=== PATIENT | male | born 1965 ===

== ENCOUNTER 2017-02-22 03:14 | Inpatient (IN) | payer MEDICAID ==
[2017-02-22] MEDS ORDERED: Promethazine/Cod 6.25mg-10mg/5ml Syr UD PO STA (03:39)
[2017-02-22] MEDS ORDERED: Magnesium Sulfate 2 gm/50 ml 2 GM/50 ML BAG IV STA (03:39)
[2017-02-22] MEDS ORDERED: Albuterol-Ipratrop 3 mg / 0.5 (3 ml) UD INH STA ×2 (03:39)
[2017-02-22] MEDS ORDERED: Magnesium Sulfate 2 gm/50 ml 2 GM/50 ML BAG ONE (03:48)
[2017-02-22] MEDS ORDERED: Albuterol-Ipratrop 3 mg / 0.5 (3 ml) UD ONE (03:48)
[2017-02-22] MEDS ORDERED: Promethazine/Cod 6.25mg-10mg/5ml Syr UD ONE (03:50)
--- NOTE | 2017-02-22 03:50 | ED PDOC ---
HPI: Chest Pain Time Seen by Provider: 02/22/17 03:28 Chief Complaint (Nursing): Chest Pain Chief Complaint (Provider): Cough/SOB/Chest Tightness History Per: Patient History/Exam Limitations: no limitations Onset/Duration Of Symptoms: Days (2 days ago) Current Symptoms Are (Timing): Still Present Additional Complaint(s): 51 y/o male with a past medical history of COPD, Hypertension, Hepatitis C, and chronic back pain, presents to the ED complaining chest tightness, onset of 2 days ago. Patient also states that his chest tightness worsens with associated symptoms of cough and shortness of breath. He informs the staff of using his at home nebulizer, but experienced no relief. Patient reports also experiencing fever, wheezing and headache, but denies any vomiting or diarrhea. Of note, patient is a former smoker and drinks on occasion. PMD: Dr. Gurwinder Mtz Past Medical History Reviewed: Historical Data, Nursing Documentation, Vital Signs Vital Signs: Last Vital Signs Temp 98.7 F 02/22/17 03:26 Pulse 94 H 02/22/17 03:26 Resp 18 02/22/17 03:26 BP 120/69 02/22/17 03:26 Pulse Ox 98 02/22/17 04:03 - Medical History PMH: Arthritis (KNEES), Asthma, Benign Prostatic Hyperplasia, Bronchitis, COPD, Gastritis, Hepatitis (C), HTN, Hypercholesterolemia, Chronic Pain (back pain) - Surgical History Surgical History: No Surg Hx - Family History Family History: States: Unknown Family Hx - Social History Ex-Smoker (has not smoked in the last 12 months): Yes Alcohol: Occasional Drugs: Denies - Immunization History Hx Tetanus Toxoid Vaccination: No Hx Influenza Vaccination: No Hx Pneumococcal Vaccination: No - Home Medications Home Medications: Ambulatory Orders Medication Instructions Recorded Albuterol Sulfate [Proair Hfa] 0.09 mg IH TID #1 inh 07/06/15 Aspirin [Adult Low Dose Aspirin EC] 81 mg PO DAILY #30 tablet. 07/06/15 Atorvastatin Calcium [Lipitor] 10 mg PO DAILY #30 tab 07/06/15 Fluticasone/Salmeterol [Advair 1 dsk IH BID #1 dsk 07/06/15 500-50 Diskus] Folic Acid 1 mg PO DAILY #30 tab 07/06/15 Lisinopril 10 mg PO DAILY #030 tablet 07/06/15 Thiamine [Vitamin B1 Tab] 100 mg PO DAILY #30 tab 07/06/15 amLODIPine [Norvasc] 10 mg PO DAILY #30 tab 07/06/15 cloNIDine [Catapres] 0.2 mg PO BID #60 tab 07/06/15 Cyclobenzaprine [Cyclobenzaprine 10 mg PO TID PRN #15 tab 12/07/15 HCl] Pantoprazole Sodium [Protonix] 40 mg PO DAILY #14 ect 12/07/15 Metoprolol Succinate [Metoprolol 100 mg PO BID 05/04/16 Succinate Xl] Albuterol HFA [Ventolin HFA 90 2 puff IH Q4 PRN #1 unit 12/25/16 mcg/actuation (8 g)] Azithromycin [Zithromax] 1 dose PO DAILY #1 pkt 12/25/16 predniSONE [predniSONE Tab] 3 tab PO DAILY #12 tab 12/25/16 - Allergies Allergies/Adverse Reactions: Allergies Allergy/AdvReac Type Severity Reaction Status Date / Time No Known Allergies Allergy Verified 12/24/16 20:53 Review of Systems ROS Statement: Except As Marked, All Systems Reviewed And Found Negative Constitutional: Positive for: Fever Cardiovascular: Positive for: Other (chest tightness) Respiratory: Positive for: Cough, Shortness of Breath, Wheezing Gastrointestinal: Negative for: Vomiting, Diarrhea Neurological: Positive for: Headache Physical Exam - Reviewed Nursing Documentation Reviewed: Yes Vital Signs Reviewed: Yes - Physical Exam Appears: Positive for: Non-toxic, Uncomfortable Head Exam: Positive for: ATRAUMATIC, NORMOCEPHALIC Skin: Positive for: Normal Color, Warm Eye Exam: Positive for: Normal appearance, EOMI, PERRL ENT: Positive for: Normal ENT Inspection Neck: Positive for: Normal, Painless ROM, Supple Cardiovascular/Chest: Positive for: Regular Rate, Rhythm. Negative for: Murmur Respiratory: Positive for: Rhonchi, Wheezing (bilateral), Respiratory Distress ( mild) Gastrointestinal/Abdominal: Positive for: Normal Exam, Soft. Negative for: Tenderness Back: Positive for: Normal Inspection Extremity: Positive for: Normal ROM. Negative for: Pedal Edema, Deformity Neurologic/Psych: Positive for: Alert, Oriented. Negative for: Motor/Sensory Deficits - Laboratory Results Result Diagrams: 02/22/17 04:20 02/22/17 04:20 - ECG O2 Sat by Pulse Oximetry: 98 (RA) Pulse Ox Interpretation: Normal Medical Decision Making Medical Decision Making: Time: --03:39 Impression: --51 y/o male with acute COPD exacerbation Plan: --ECG --Labs --B-type natruiuretic --Lact Acid, Plasma --Troponin I --Chest X-ray --Albuter 3ml --Magnesium Sulfate 2gm in 50ml --methylprednisolone 125 mg IVP --promethazine/Codeine 10 ml PO --Blood Culture --Heplock Insertion --Peak Flow pre/post tx --influenza a b Reassess --05:20 X-ray shows no acute disease. Patient reports of mild improvement of symptoms. Labs reviewed and revealed no clinically significant abnormalities. patient to be admitted for observation of COPD exacerbation. Scribe Attestation: Documented by Phillip Ba acting as a scribe for Quintin Menendez MD. Disposition - Clinical Impression Clinical Impression: COPD exacerbation - Patient ED Disposition Is Patient to be Admitted: Yes Discussed With DrLeanne: Yury Martínez Comment: patient to be admitted for observation of COPD exacerbation Doctor Will See Patient In The: Hospital - Disposition Referrals: Gurwinder Mtz MD [Primary Care Provider] - Disposition Time: 05:20 Condition: FAIR Forms: HERMEL DELOR (German)
[2017-02-22 04:38] LABS: BASO % 0.5 % (0.0-2.0); EOS # 1.7 K/uL (0.0-0.7); EOS % 24.9 % (0.0-4.0); LYMPH % 29.6 % (20.0-40.0); MEAN CELL VOLUME 94.2 fl (80.0-94.0); MEAN CORPUSCULAR HGB CONC 32.9 g/dL (33.0-37.0); MEAN PLATELET VOLUME 7.7 fl (7.2-11.7); MONO # 0.9 K/uL (0.0-0.8); MONO % 12.8 % (0.0-10.0); NEUT # 2.2 K/uL (1.8-7.0); NEUT % 32.2 % (50.0-75.0); NRBC % 0.1 % (0.0-0.0); PLATELET COUNT 150 K/uL (130-400); RED CELL DISTRIBUTION WIDTH 13.4 % (11.5-14.5); WHITE BLOOD COUNT 6.8 K/uL (4.8-10.8)
[2017-02-22 04:41] LABS: ALB/GLOB RATIO 1.3 (1.0-2.1); ALKALINE PHOSPHATASE 69 U/L (38-126); ALT/SGPT 60 U/L (21-72); AST/SGOT 63 U/L (17-59); BILIRUBIN,TOTAL 0.7 mg/dl (0.2-1.3); BLOOD UREA NITROGEN 29 mg/dl (9-20); CALCIUM 8.8 mg/dL (8.4-10.2); CARBON DIOXIDE 28 mmol/L (22-30); CHLORIDE 99 mmol/L (98-107); GFR AFRICAN-AMERICAN > 60; GLUCOSE,RANDOM 105 mg/dL (75-110); POTASSIUM 4.1 MMOL/L (3.6-5.0); SODIUM 140 mmol/l (132-148); TOTAL PROTEIN 7.5 G/DL (6.3-8.2)
[2017-02-22 05:15] LABS: BASOPHIL 1 % (0-2); EOSINOPHIL 25 % (0-7); NEUTROPHIL 39 % (42-75); TOTAL CELLS COUNTED 100
[2017-02-22] MEDS: Albuterol-Ipratrop 3 mg / 0.5 (3 ml) UD INH SCH ×4 (09:01→23:40)
--- NOTE | 2017-02-22 09:03 | CP.PCM.HP ---
<Michael Milton - Last Filed: 02/22/17 19:37> History of Present Illness - History of Present Illness History of Present Illness: 51 yo ,m, PMhx/o COPD X 5 years,HTN, Gastritis,Hep C presents c/o chest tightness started 2 days ago associated with 4-5 episodes of severe SOB during yesterday and today not alleviated with albuterol pump. Patient reports productive cough for the last month that turned yellowish expectoration for the last 2 days and increased amount of flegm. Pt also c/o subjective fever for the last 7 days. He denies abd pain, diarrhea, rash, recent travel, sick contact. Pt report that stopped smoking 2 weeks ago and drinks ETOH very frequent. LAst time 2 days ago. PMD: Gurwinder Mtz PMhx: COPD, Hep C, HTN, Gastritis PSurghx: denies SHx: + drinks 2-4 drinks/day. uses percocet purchased from street, denies IV drug abuse, denies cocaine use. Smoker for 40 years, 2-3 PPD. stop 2 wkks ago Present on Admission - Present on Admission Any Indicators Present on Admission: No History of DVT/PE: No History of Uncontrolled Diabetes: No Review of Systems - Respiratory Respiratory: Cough, Dyspnea on Exertion, Chest Congestion Past Patient History - Infectious Disease Hx of Infectious Diseases: None - Past Medical History & Family History Past Medical History?: Yes - Past Social History Smoking Status: Heavy Smoker > 10 Cigarettes Daily - CARDIAC Hx Hypercholesterolemia: Yes Hx Hypertension: Yes - PULMONARY Hx Asthma: Yes Hx Bronchitis: Yes Hx Chronic Obstructive Pulmonary Disease (COPD): Yes - NEUROLOGICAL HX Cerebrovascular Accident: Yes - HEENT Hx HEENT Problems: Yes - ENDOCRINE/METABOLIC Hx Endocrine Disorders: No - HEMATOLOGICAL/ONCOLOGICAL Hx Blood Disorders: Yes - INTEGUMENTARY Hx Dermatological Problems: No - MUSCULOSKELETAL/RHEUMATOLOGICAL Hx Arthritis: Yes (KNEES) - GASTROINTESTINAL Hx Gastritis: Yes - GENITOURINARY/GYNECOLOGICAL Hx Genitourinary Disorders: Yes Other/Comment: Enlarged Prostate - PSYCHIATRIC Hx Psychophysiologic Disorder: No Hx Substance Use: Yes (heroin) - SURGICAL HISTORY Hx Surgeries: No - ANESTHESIA Hx Anesthesia: No Hx Anesthesia Reactions: No Hx Malignant Hyperthermia: No Meds Allergies/Adverse Reactions: Allergies Allergy/AdvReac Type Severity Reaction Status Date / Time No Known Allergies Allergy Verified 12/24/16 20:53 Physical Exam - Constitutional Appears: Non-toxic, No Acute Distress - Head Exam Head Exam: ATRAUMATIC, NORMOCEPHALIC - Eye Exam Eye Exam: Normal appearance - ENT Exam ENT Exam: Normal Exam, Normal Oropharynx - Neck Exam Neck exam: Positive for: Normal Inspection - Respiratory Exam Respiratory Exam: Wheezes. absent: Accessory Muscle Use, Rales - Cardiovascular Exam Cardiovascular Exam: REGULAR RHYTHM, +S1, +S2 - GI/Abdominal Exam GI & Abdominal Exam: Normal Bowel Sounds, Soft. absent: Guarding, Rebound - Extremities Exam Extremities exam: Positive for: normal inspection. Negative for: calf tenderness, tenderness - Neurological Exam Neurological exam: Alert, Oriented x3 - Psychiatric Exam Psychiatric exam: Normal Affect - Skin Skin Exam: Intact Results - Vital Signs Recent Vital Signs: Last Vital Signs Temp 98.6 F 02/22/17 08:03 Pulse 88 02/22/17 08:03 Resp 20 02/22/17 08:03 BP 127/79 02/22/17 08:03 Pulse Ox 94 L 02/22/17 08:03 - Labs Result Diagrams: 02/22/17 04:20 02/22/17 04:20 Labs: Laboratory Results - last 24 hr 02/22/17 02/22/17 02/22/17 04:20 04:20 04:20 WBC 6.8 RBC 3.93 L Hgb 12.2 Hct 37.0 MCV 94.2 H MCH 31.0 MCHC 32.9 L RDW 13.4 Plt Count 150 MPV 7.7 Neut % (Auto) 32.2 L Lymph % (Auto) 29.6 [place] % (Auto) 12.8 H Eos % (Auto) 24.9 H Baso % (Auto) 0.5 Neut # 2.2 Lymph # 2.0 [place] # 0.9 H Eos # 1.7 H Baso # 0.0 Neutrophils % (Manual) 39 L Lymphocytes % (Manual) 29 Monocytes % (Manual) 6 Eosinophils % (Manual) 25 H Basophils % (Manual) 1 Platelet Estimate Normal Anisocytosis (manual) Slight Sodium 140 Potassium 4.1 Chloride 99 Carbon Dioxide 28 Anion Gap 17 BUN 29 H Creatinine 1.1 Est GFR ( Amer) > 60 Est GFR (Non-Af Amer) > 60 Random Glucose 105 Lactic Acid 1.2 Calcium 8.8 Total Bilirubin 0.7 AST 63 H ALT 60 Alkaline Phosphatase 69 Troponin I 0.0170 NT-Pro-B Natriuret Pep 52.7 Total Protein 7.5 Albumin 4.3 Globulin 3.2 Albumin/Globulin Ratio 1.3 Influenza Typ A,B (EIA) 02/22/17 04:20 WBC RBC Hgb Hct MCV MCH MCHC RDW Plt Count MPV Neut % (Auto) Lymph % (Auto) [place] % (Auto) Eos % (Auto) Baso % (Auto) Neut # Lymph # [place] # Eos # Baso # Neutrophils % (Manual) Lymphocytes % (Manual) Monocytes % (Manual) Eosinophils % (Manual) Basophils % (Manual) Platelet Estimate Anisocytosis (manual) Sodium Potassium Chloride Carbon Dioxide Anion Gap BUN Creatinine Est GFR ( Amer) Est GFR (Non-Af Amer) Random Glucose Lactic Acid Calcium Total Bilirubin AST ALT Alkaline Phosphatase Troponin I NT-Pro-B Natriuret Pep Total Protein Albumin Globulin Albumin/Globulin Ratio Influenza Typ A,B (EIA) Negative for flu a/b Assessment & Plan (1) COPD exacerbation Assessment and Plan: Xr No infiltrates Pulmonology consult appreciated c/w metylprednisone, levaquin Status: Acute (2) Hypertension Assessment and Plan: Switch from metoprolol to Bisoprolol -Norvasc Status: Acute (3) ETOH abuse Assessment and Plan: - CIWA score 4 -f/u CIWA every day Status: Acute (4) DVT prophylaxis Assessment and Plan: Lovenox 40 mg sc Status: Acute <Martínez,Yury K - Last Filed: 03/04/17 12:16> Results - Vital Signs Recent Vital Signs: Last Vital Signs Temp 98.3 F 03/03/17 20:18 Pulse 82 03/03/17 20:18 Resp 16 03/03/17 20:18 BP 113/73 03/03/17 20:18 Pulse Ox 98 03/03/17 20:18 - Labs Result Diagrams: 03/01/17 04:20 03/01/17 04:20 Assessment & Plan - Assessment and Plan (Free Text) Assessment: Patient was personally seen and examined by me in rounds with residents. Available labs and diagnostic data reviewed. Case, patient's condition and management plan discussed with residents in rounds. Agree with resident's progress note. Plan: As ordered.
[2017-02-22] MEDS ORDERED: Fluticasone-Salmeterol 500-50mcg Diskus IH SCH (09:15)
[2017-02-22] MEDS ORDERED: methylPREDNISolone 80 MG in Sodium Chloride 0.9% 50 ML IVPB SCH (10:00)
[2017-02-22] MEDS ORDERED: methylPREDNISolone 60 MG in Sodium Chloride 0.9% 50 ML IVPB SCH (10:00)
[2017-02-22] MEDS: Sodium Chloride 0.45% 1,000 ML IV SCH (10:05)
[2017-02-22] MEDS: Fluticasone-Salmeterol 500-50mcg Diskus IH SCH ×2 (10:10→17:18)
[2017-02-22] MEDS: Enoxaparin 40 mg Syringe SC SCH (10:27)
[2017-02-22 11:10] LABS: ABG ALLEN TEST YES; ARTERIAL BLOOD GAS HCO3 30.4 mmol/L (21-28); ARTERIAL BLOOD GAS O2 CAPACITY 17.8 mL/dL (16-24); ARTERIAL BLOOD GAS O2 CONTENT 17.4 ML/dL (15-23); ARTERIAL BLOOD GAS PH 7.46 (7.35-7.45); ARTERIAL BLOOD GAS PO2 68 mm/Hg (80-100); ARTERIAL BLOOD HGB O2 SAT 93.2 % (95.0-98.0); CARBOXYHEMOGLOBIN 3.4 % (0.5-1.5); HHB 1.9 % (0.0-5.0); METHEMOGLOBIN 1.5 % (0.0-3.0)
--- NOTE | 2017-02-22 11:27 | RAD ---
HISTORY: Chest pain COMPARISON: No prior. FINDINGS: LUNGS: The lungs are well inflated and clear. PLEURA: No significant pleural effusion identified, no pneumothorax apparent. CARDIOVASCULAR: Normal. OSSEOUS STRUCTURES: No significant abnormalities. VISUALIZED UPPER ABDOMEN: Normal. OTHER FINDINGS: None. IMPRESSION: No active pulmonary disease.
[2017-02-22] MEDS: levoFLOXacin 500 mg in D5W 500 MG/100 ML BAG IVPB SCH (11:46)
--- NOTE | 2017-02-22 12:05 | CP.PCM.CON ---
History of Present Illness - History of Present Illness History of Present Illness: Psychiatry consult note 51 y/o male with a past medical history of COPD, Hypertension, Hepatitis C, and chronic back pain, presents to the ED complaining chest tightness, onset of 2 days ago. Patient reports that he feels depressed and anxious. Denies ideation to harm self or others. He also reports that he hears intermittent AH of multiple voices mumbling, no CAH. No current VH. NO paranoia/delusions. Patient reports that he uses illicit percocet purchased from the streets and drinks ETOH daily. He denies current signs/symptoms of ETOH w/drawal. PMD: Dr. Gurwinder Mtz Family history: mother (breast CA) PMH: Asthma, Bronchitis, COPD, Gastritis, Hypertension, Hepatitis C, and chronic back pain PPHx: Denies history of treatment w/ psychiatric medications; patient has a history of opioid abuse Surg Hx: denied All: NKDA Social: +drinks 2-4 drinks/day, uses percocet purchased from the street; denies IV drug use, denies cocaine use MSE: A + O x 3, calm, cooperative, speech normal rate/rhythm/volume, mood "anxious", affect- full range, no current AH/VH/paranoia/delusions, I/J fair, good impulse control. 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 Patient is not agreeable to inpatient voluntary psychiatric admission at this time and does not meet criteria for involuntary commitment. -Psychoeducation provided re: alcohol and opiate abuse -Recommend to check urine toxicology -Can start Lexapro 10 mg PO Daily and Risperdal 0.5 mg PO HS -Monitor for signs/symptoms of ETOH w/drawal, can start Ativan or Librium as per CIWA protocol if indicated -Outpatient psychiatry follow-up upon discharge Past Patient History - Infectious Disease Hx of Infectious Diseases: None - Past Medical History & Family History Past Medical History?: Yes - Past Social History Smoking Status: Heavy Smoker > 10 Cigarettes Daily - CARDIAC Hx Hypercholesterolemia: Yes Hx Hypertension: Yes - PULMONARY Hx Asthma: Yes Hx Bronchitis: Yes Hx Chronic Obstructive Pulmonary Disease (COPD): Yes - NEUROLOGICAL HX Cerebrovascular Accident: Yes - HEENT Hx HEENT Problems: Yes - RENAL Hx Chronic Kidney Disease: No - ENDOCRINE/METABOLIC Hx Endocrine Disorders: No - HEMATOLOGICAL/ONCOLOGICAL Hx Blood Disorders: Yes - INTEGUMENTARY Hx Dermatological Problems: No - MUSCULOSKELETAL/RHEUMATOLOGICAL Hx Arthritis: Yes (KNEES) - GASTROINTESTINAL Hx Gastritis: Yes - GENITOURINARY/GYNECOLOGICAL Hx Genitourinary Disorders: Yes Other/Comment: Enlarged Prostate - PSYCHIATRIC Hx Psychophysiologic Disorder: No Hx Substance Use: Yes (heroin) - SURGICAL HISTORY Hx Surgeries: No - ANESTHESIA Hx Anesthesia: No Hx Anesthesia Reactions: No Hx Malignant Hyperthermia: No Meds Allergies/Adverse Reactions: Allergies Allergy/AdvReac Type Severity Reaction Status Date / Time No Known Allergies Allergy Verified 12/24/16 20:53 - Medications Medications: Current Medications Acetylcysteine (Acetylcysteine 20%) 2 ml INH RBID YEYO Albuterol/Ipratropium (Duoneb 3 Mg/0.5 Mg (3 Ml) Ud) 3 ml INH RQ4 [facility] Last Admin: 02/22/17 09:01 Dose: 3 ml Amlodipine Besylate (Norvasc) 10 mg PO DAILY [facility] Last Admin: 02/22/17 10:11 Dose: 10 mg Aspirin (Ecotrin) 81 mg PO DAILY [facility] Last Admin: 02/22/17 10:11 Dose: 81 mg Atorvastatin Calcium (Lipitor) 10 mg PO DAILY [facility] Bisoprolol Fumarate (Zebeta) 2.5 mg PO DAILY [facility] Last Admin: 02/22/17 10:12 Dose: 2.5 mg Enoxaparin Sodium (Lovenox) 40 mg SC DAILY [facility] PRN Reason: Protocol Last Admin: 02/22/17 10:27 Dose: 40 mg Folic Acid (Folic Acid) 1 mg PO DAILY [facility] Last Admin: 02/22/17 10:11 Dose: 1 mg Sodium Chloride (Sodium Chloride 0.45%) 1,000 mls @ 60 mls/hr IV .[id number] [facility] Stop: 02/23/17 09:09 Last Admin: 02/22/17 10:05 Dose: 60 mls/hr Levofloxacin/Dextrose (Levaquin 500mg) 500 mg in 100 mls @ 100 mls/hr IVPB DAILY [facility] PRN Reason: Protocol Last Admin: 02/22/17 11:46 Dose: 100 mls/hr Methylprednisolone (Solu-Medrol) 80 mg IV Q6H [facility] Last Admin: 02/22/17 10:12 Dose: 80 mg Promethazine HCl (Phenergan Syrup) 12.5 mg PO Q4 [facility] Fluticasone/Salmeterol (Advair Diskus 500/50) 1 puff IH BID [facility] Last Admin: 02/22/17 10:10 Dose: 1 puff Thiamine HCl (Vitamin B1 Tab) 100 mg PO DAILY [facility] Last Admin: 02/22/17 10:11 Dose: 100 mg Results - Vital Signs Recent Vital Signs: Last Vital Signs Temp 98.6 F 02/22/17 08:03 Pulse 90 02/22/17 10:11 Resp 20 02/22/17 08:50 BP 134/84 02/22/17 10:11 Pulse Ox 95 02/22/17 08:50 - Labs Result Diagrams: 02/22/17 04:20 02/22/17 04:20 Labs: Laboratory Results - last 24 hr 02/22/17 02/22/17 02/22/17 04:20 04:20 04:20 WBC 6.8 RBC 3.93 L Hgb 12.2 Hct 37.0 MCV 94.2 H MCH 31.0 MCHC 32.9 L RDW 13.4 Plt Count 150 MPV 7.7 Neut % (Auto) 32.2 L Lymph % (Auto) 29.6 [place] % (Auto) 12.8 H Eos % (Auto) 24.9 H Baso % (Auto) 0.5 Neut # 2.2 Lymph # 2.0 [place] # 0.9 H Eos # 1.7 H Baso # 0.0 Neutrophils % (Manual) 39 L Lymphocytes % (Manual) 29 Monocytes % (Manual) 6 Eosinophils % (Manual) 25 H Basophils % (Manual) 1 Platelet Estimate Normal Anisocytosis (manual) Slight pCO2 pO2 HCO3 ABG pH ABG Total CO2 ABG O2 Saturation ABG O2 Content ABG Base Excess ABG Hemoglobin ABG Carboxyhemoglobin POC ABG HHb (Measured) ABG Methemoglobin ABG O2 Capacity Wei Test A-a O2 Difference Hgb O2 Saturation FiO2 Sodium 140 Potassium 4.1 Chloride 99 Carbon Dioxide 28 Anion Gap 17 BUN 29 H Creatinine 1.1 Est GFR ( Amer) > 60 Est GFR (Non-Af Amer) > 60 Random Glucose 105 Lactic Acid 1.2 Calcium 8.8 Total Bilirubin 0.7 AST 63 H ALT 60 Alkaline Phosphatase 69 Troponin I 0.0170 NT-Pro-B Natriuret Pep 52.7 Total Protein 7.5 Albumin 4.3 Globulin 3.2 Albumin/Globulin Ratio 1.3 Influenza Typ A,B (EIA) 02/22/17 02/22/17 04:20 10:58 WBC RBC Hgb Hct MCV MCH MCHC RDW Plt Count MPV Neut % (Auto) Lymph % (Auto) [place] % (Auto) Eos % (Auto) Baso % (Auto) Neut # Lymph # [place] # Eos # Baso # Neutrophils % (Manual) Lymphocytes % (Manual) Monocytes % (Manual) Eosinophils % (Manual) Basophils % (Manual) Platelet Estimate Anisocytosis (manual) pCO2 45 pO2 68 L HCO3 30.4 H ABG pH 7.46 H ABG Total CO2 33.4 H ABG O2 Saturation 98.0 ABG O2 Content 17.4 ABG Base Excess 7.2 H ABG Hemoglobin 13.3 ABG Carboxyhemoglobin 3.4 H POC ABG HHb (Measured) 1.9 ABG Methemoglobin 1.5 ABG O2 Capacity 17.8 Wei Test Yes A-a O2 Difference 25.0 Hgb O2 Saturation 93.2 L FiO2 21.0 Sodium Potassium Chloride Carbon Dioxide Anion Gap BUN Creatinine Est GFR ( Amer) Est GFR (Non-Af Amer) Random Glucose Lactic Acid Calcium Total Bilirubin AST ALT Alkaline Phosphatase Troponin I NT-Pro-B Natriuret Pep Total Protein Albumin Globulin Albumin/Globulin Ratio Influenza Typ A,B (EIA) Negative for flu a/b
--- NOTE | 2017-02-22 15:13 | CON ---
HISTORY OF PRESENT ILLNESS: Mr. Ledesma is a 51-year-old male who was referred for pulmonary consultation by Dr. Martínez. He was admitted with shortness of breath and chest tightness for 2 days prior to presentation. He indicates that symptoms have worsened despite using his aerosolized bronchodilators. He has a history of chronic obstructive pulmonary disease and indicates that he stopped smoking several weeks ago, also has a history of hepatitis C, hypertension, hyperlipidemia, chronic back pain. He has been under the care of Dr. Gurwinder Mtz. FAMILY HISTORY: Nonrevealing except for brother who has COPD. SOCIAL HISTORY: Patient quit smoking recently. Denies alcohol use. 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 REVIEW OF SYSTEMS: Remarkable for shortness of breath with audible wheezing and exercise intolerance. PHYSICAL EXAMINATION: GENERAL: The patient is alert, oriented, appears short of breath on mild exertion, has audible wheezing. VITAL SIGNS: Blood pressure 120/69 with a pulse of 94, respiratory rate 18. He is afebrile. O2 sat 98% on 2 liters nasal cannula. SKIN: Shows fair turgor. HEENT: Pupils equal, reactive to light and accommodation. Mouth shows poor hygiene with mucous engorgement of pharynx. NECK: JVP flat. LUNGS: Poor aeration bilaterally with audible wheezing and rales. HEART: S1 and S2. ABDOMEN: Soft and nontender. No organomegaly. EXTREMITIES: Mild clubbing of upper extremities. CENTRAL NERVOUS SYSTEM: Grossly intact. LABORATORY DATA: Chest x-ray official report pending, but it shows COPD picture with hyperinflation of lungs and flattening of diaphragm. No acute pulmonary infiltrate noted. EKG, normal sinus rhythm. WBC 6.8, hemoglobin 12.2, platelet count 150,000. Sodium 140, potassium of 4.1, BUN of 29, creatinine 1.1. ABG is pending. IMPRESSION: Acute exacerbation of chronic obstructive pulmonary disease, upper respiratory tract infection, history of hypertension, history of hepatitis C, hyperlipidemia, history of chronic back pain. PLAN: Continue IV steroids, aerosolized antibiotics, oxygen. We will give empiric antibiotic therapy for upper respiratory tract infection. We will also give Mucomyst to help expectorate specimen as sputum. We will continue to follow with you. Further therapy will depend on findings. Jose Juan Saucedo MD [facility] # [id number]
[2017-02-22] MEDS: Promethazine 12.5 mg/10 ml Syrup PO SCH ×3 (15:32→21:41)
[2017-02-22] MEDS: Acetylcysteine 20% Inhal Soln (4ml) INH SCH (20:04)
[2017-02-23] MEDS: Promethazine 12.5 mg/10 ml Syrup PO SCH ×6 (01:32→20:22)
[2017-02-23] MEDS: Sodium Chloride 0.45% 1,000 ML IV SCH (02:42)
[2017-02-23] MEDS: Albuterol-Ipratrop 3 mg / 0.5 (3 ml) UD INH SCH ×6 (04:00→23:34)
[2017-02-23 06:15] LABS: HEMATOCRIT 39.3 % (35.0-51.0); MEAN CELL VOLUME 93.3 fl (80.0-94.0); MEAN CORPUSCULAR HEMOGLOBIN 30.7 pg (27.0-31.0); MEAN CORPUSCULAR HGB CONC 32.9 g/dL (33.0-37.0); RED CELL DISTRIBUTION WIDTH 13.2 % (11.5-14.5); WHITE BLOOD COUNT 6.6 K/uL (4.8-10.8)
[2017-02-23 06:27] LABS: RBC URINE 4 /hpf (0-3); URINE BILIRUBIN NEGATIVE (NEGATIVE); URINE BLOOD MODERATE (NEGATIVE); URINE COLOR YELLOW (YELLOW); URINE GLUCOSE (UA) >=500 mg/dL (Normal); URINE KETONE NEGATIVE (NEGATIVE); URINE LEUKOCYTE ESTERASE NEG Leu/uL (Negative); URINE PROTEIN 30 mg/dL (NEGATIVE); URINE UROBILINOGEN 0.2-1.0 mg/dL (0.2-1.0); WBC URINE 1 /hpf (0-5)
[2017-02-23 06:28] LABS: BLOOD UREA NITROGEN 29 mg/dl (9-20); CALCIUM 9.4 mg/dL (8.4-10.2); CARBON DIOXIDE 29 mmol/L (22-30); CHLORIDE 95 mmol/L (98-107); GFR AFRICAN-AMERICAN > 60; GLUCOSE,RANDOM 171 mg/dL (75-110); POTASSIUM 4.2 MMOL/L (3.6-5.0); SODIUM 135 mmol/l (132-148)
[2017-02-23] MEDS: Acetylcysteine 20% Inhal Soln (4ml) INH SCH ×2 (07:52→20:15)
[2017-02-23] MEDS: levoFLOXacin 500 mg in D5W 500 MG/100 ML BAG IVPB SCH (09:19)
[2017-02-23] MEDS: Fluticasone-Salmeterol 500-50mcg Diskus IH SCH ×2 (09:20→16:33)
[2017-02-23] MEDS: Enoxaparin 40 mg Syringe SC SCH (09:20)
--- NOTE | 2017-02-23 10:24 | CP.PCM.PN ---
Subjective - Date & Time of Evaluation Date of Evaluation: 02/23/17 Time of Evaluation: 10:24 - Subjective Subjective: SOB STILL PRESENT STILL COUGHING Objective - Vital Signs/Intake and Output Vital Signs (last 24 hours): Temp Pulse Resp BP Pulse Ox 99.1 F 61 20 162/82 H 96 02/23/17 08:12 02/23/17 09:22 02/23/17 08:12 02/23/17 00:00 02/23/17 08:12 - Medications Medications: Current Medications Acetaminophen (Tylenol 325mg Tab) 650 mg PO Q6 PRN PRN Reason: Headache Last Admin: 02/22/17 16:20 Dose: 650 mg Acetylcysteine (Acetylcysteine 20%) 2 ml INH RBID [facility] Last Admin: 02/23/17 07:52 Dose: Not Given Albuterol/Ipratropium (Duoneb 3 Mg/0.5 Mg (3 Ml) Ud) 3 ml INH RQ4 [facility] Last Admin: 02/23/17 07:52 Dose: 3 ml Amlodipine Besylate (Norvasc) 10 mg PO DAILY [facility] Last Admin: 02/23/17 09:22 Dose: 10 mg Aspirin (Ecotrin) 81 mg PO DAILY [facility] Last Admin: 02/23/17 09:21 Dose: 81 mg Atorvastatin Calcium (Lipitor) 10 mg PO DAILY [facility] Last Admin: 02/23/17 09:30 Dose: 10 mg Bisoprolol Fumarate (Zebeta) 2.5 mg PO DAILY [facility] Last Admin: 02/23/17 09:21 Dose: 2.5 mg Chlordiazepoxide (Librium) 25 mg PO Q6 [facility] Enoxaparin Sodium (Lovenox) 40 mg SC DAILY [facility] PRN Reason: Protocol Last Admin: 02/23/17 09:20 Dose: 40 mg Escitalopram Oxalate (Lexapro) 10 mg PO DAILY [facility] Last Admin: 02/22/17 15:37 Dose: 10 mg Folic Acid (Folic Acid) 1 mg PO DAILY [facility] Last Admin: 02/23/17 09:21 Dose: 1 mg Levofloxacin/Dextrose (Levaquin 500mg) 500 mg in 100 mls @ 100 mls/hr IVPB DAILY [facility] PRN Reason: Protocol Last Admin: 02/23/17 09:19 Dose: 100 mls/hr Ibuprofen (Motrin Tab) 600 mg PO Q8 PRN PRN Reason: Pain, moderate (4-7) Last Admin: 02/23/17 09:33 Dose: 600 mg Magnesium Oxide (Mag-Ox) 400 mg PO BID [facility] Methylprednisolone (Solu-Medrol) 80 mg IV Q6H [facility] Last Admin: 02/23/17 09:21 Dose: 80 mg Ondansetron HCl (Zofran Inj) 4 mg IVP Q4 PRN PRN Reason: Nausea/Vomiting Last Admin: 02/22/17 18:00 Dose: 4 mg Promethazine HCl (Phenergan Syrup) 12.5 mg PO Q4 [facility] Last Admin: 02/23/17 09:19 Dose: 12.5 mg Risperidone (Risperdal Tab) 0.5 mg PO HS [facility] Last Admin: 02/22/17 21:41 Dose: 0.5 mg Fluticasone/Salmeterol (Advair Diskus 500/50) 1 puff IH BID [facility] Last Admin: 02/23/17 09:20 Dose: 1 puff Thiamine HCl (Vitamin B1 Tab) 100 mg PO DAILY [facility] Last Admin: 02/23/17 09:21 Dose: 100 mg - Labs Labs: 02/23/17 05:45 02/23/17 05:45 - Constitutional Appears: No Acute Distress - Head Exam Head Exam: ATRAUMATIC, NORMAL INSPECTION, NORMOCEPHALIC - Eye Exam Eye Exam: EOMI, Normal appearance, PERRL Pupil Exam: NORMAL ACCOMODATION, PERRL - ENT Exam ENT Exam: Mucous Membranes Moist, Normal Exam - Neck Exam Neck Exam: Full ROM, Normal Inspection. absent: Lymphadenopathy - Respiratory Exam Respiratory Exam: Decreased Breath Sounds, Prolonged Expiratory Phase, Rales, Wheezes, NORMAL BREATHING PATTERN - Cardiovascular Exam Cardiovascular Exam: REGULAR RHYTHM, +S1, +S2. absent: Murmur - GI/Abdominal Exam GI & Abdominal Exam: Soft, Normal Bowel Sounds. absent: Tenderness - Rectal Exam Rectal Exam: NORMAL INSPECTION - Extremities Exam Extremities Exam: Full ROM, Normal Capillary Refill, Normal Inspection. absent : Joint Swelling, Pedal Edema - Back Exam Back Exam: NORMAL INSPECTION - Neurological Exam Neurological Exam: Alert, Awake, CN II-XII Intact, Normal Gait, Oriented x3 - Psychiatric Exam Psychiatric exam: Normal Affect, Normal Mood - Skin Skin Exam: Dry, Intact, Normal Color, Warm Assessment and Plan - Assessment and Plan (Free Text) Assessment: ACUTE EXAC OF COPD Plan: CONTINUE CURRENT RX
[2017-02-23] MEDS ORDERED: Magnesium Sulfate 2 gm/50 ml 2 GM/50 ML BAG IVPB ONE (11:20)
[2017-02-23] MEDS ORDERED: Valproate 500 MG in Sodium Chloride 0.9% 100 ML IVPB ONE (11:21)
--- NOTE | 2017-02-23 11:26 | CARD ---
APPROVED REPORT EKG Measurement Heart [id number] <Conclusion> Normal sinus rhythm Normal ECG
--- NOTE | 2017-02-23 12:20 | CP.PCM.CON ---
History of Present Illness - History of Present Illness History of Present Illness: Mr. Ledesma is a 51-year-old man with a past medical history of COPD, Hypertension , Hepatitis C, and chronic back pain, presents to the ED complaining chest tightness, onset of 2 days ago. He also complained of having auditory hallucinations and using illicit oral opiates as well as daily alcohol. For the last two weeks, he has had a severe headache that seems to have started suddenly and involves both temporal regions with tenderness. The pain is rated 10/10 in severity, has a pressure-like sensation, involves the occipital region and down to the neck. He admits to having cervical spine disease and complains of proximal muscle pain and tenderness. He complains of bilateral hand tremors , denies current visual changes, admits to having had several episodes of "blacking out" recently, with loss of consciousness. He does not know if he bit his tongue, but may have chipped his tooth. He did not have any urinary or bowel incontinence. Review of Systems - Review of Systems All systems: reviewed and no additional remarkable complaints except Past Patient History - Infectious Disease Hx of Infectious Diseases: None - Past Medical History & Family History Past Medical History?: Yes - Past Social History Smoking Status: Heavy Smoker > 10 Cigarettes Daily - CARDIAC Hx Hypercholesterolemia: Yes Hx Hypertension: Yes - PULMONARY Hx Asthma: Yes Hx Bronchitis: Yes Hx Chronic Obstructive Pulmonary Disease (COPD): Yes - NEUROLOGICAL HX Cerebrovascular Accident: Yes - HEENT Hx HEENT Problems: Yes - RENAL Hx Chronic Kidney Disease: No - ENDOCRINE/METABOLIC Hx Endocrine Disorders: No - HEMATOLOGICAL/ONCOLOGICAL Hx Blood Disorders: Yes - INTEGUMENTARY Hx Dermatological Problems: No - MUSCULOSKELETAL/RHEUMATOLOGICAL Hx Arthritis: Yes (KNEES) - GASTROINTESTINAL Hx Gastritis: Yes - GENITOURINARY/GYNECOLOGICAL Hx Genitourinary Disorders: Yes Other/Comment: Enlarged Prostate - PSYCHIATRIC Hx Psychophysiologic Disorder: No Hx Substance Use: Yes (heroin) - SURGICAL HISTORY Hx Surgeries: No - ANESTHESIA Hx Anesthesia: No Hx Anesthesia Reactions: No Hx Malignant Hyperthermia: No Meds Allergies/Adverse Reactions: Allergies Allergy/AdvReac Type Severity Reaction Status Date / Time No Known Allergies Allergy Verified 12/24/16 20:53 - Medications Medications: Current Medications Acetaminophen (Tylenol 325mg Tab) 650 mg PO Q6 PRN PRN Reason: Headache Last Admin: 02/22/17 16:20 Dose: 650 mg Acetylcysteine (Acetylcysteine 20%) 2 ml INH RBID [facility] Last Admin: 02/23/17 07:52 Dose: Not Given Albuterol/Ipratropium (Duoneb 3 Mg/0.5 Mg (3 Ml) Ud) 3 ml INH RQ4 [facility] Last Admin: 02/23/17 11:00 Dose: 3 ml Amlodipine Besylate (Norvasc) 10 mg PO DAILY [facility] Last Admin: 02/23/17 09:22 Dose: 10 mg Aspirin (Ecotrin) 81 mg PO DAILY [facility] Last Admin: 02/23/17 09:21 Dose: 81 mg Atorvastatin Calcium (Lipitor) 10 mg PO DAILY [facility] Last Admin: 02/23/17 09:30 Dose: 10 mg Bisoprolol Fumarate (Zebeta) 2.5 mg PO DAILY [facility] Last Admin: 02/23/17 09:21 Dose: 2.5 mg Chlordiazepoxide (Librium) 25 mg PO Q6 [facility] Last Admin: 02/23/17 10:45 Dose: 25 mg Divalproex Sodium (Depakote Dr(*Bid*)) 500 mg PO BID [facility] Enoxaparin Sodium (Lovenox) 40 mg SC DAILY [facility] PRN Reason: Protocol Last Admin: 02/23/17 09:20 Dose: 40 mg Escitalopram Oxalate (Lexapro) 10 mg PO DAILY [facility] Last Admin: 02/23/17 11:45 Dose: 10 mg Folic Acid (Folic Acid) 1 mg PO DAILY [facility] Last Admin: 02/23/17 09:21 Dose: 1 mg Levofloxacin/Dextrose (Levaquin 500mg) 500 mg in 100 mls @ 100 mls/hr IVPB DAILY [facility] PRN Reason: Protocol Last Admin: 02/23/17 09:19 Dose: 100 mls/hr Magnesium Sulfate (Magnesium Sulfate 2 Gm/50 Ml Water) 2 gm in 50 mls @ 50 mls/ hr IVPB ONCE ONE PRN Reason: 2 GM/HR Stop: 02/23/17 12:19 Ibuprofen (Motrin Tab) 600 mg PO Q8 PRN PRN Reason: Pain, moderate (4-7) Last Admin: 02/23/17 09:33 Dose: 600 mg Magnesium Oxide (Mag-Ox) 400 mg PO BID [facility] Methylprednisolone (Solu-Medrol) 80 mg IV Q6H [facility] Last Admin: 02/23/17 09:21 Dose: 80 mg Ondansetron HCl (Zofran Inj) 4 mg IVP Q4 PRN PRN Reason: Nausea/Vomiting Last Admin: 02/22/17 18:00 Dose: 4 mg Promethazine HCl (Phenergan Syrup) 12.5 mg PO Q4 [facility] Last Admin: 02/23/17 09:19 Dose: 12.5 mg Risperidone (Risperdal Tab) 0.5 mg PO HS [facility] Last Admin: 02/22/17 21:41 Dose: 0.5 mg Fluticasone/Salmeterol (Advair Diskus 500/50) 1 puff IH BID [facility] Last Admin: 02/23/17 09:20 Dose: 1 puff Thiamine HCl (Vitamin B1 Tab) 100 mg PO DAILY [facility] Last Admin: 02/23/17 09:21 Dose: 100 mg Physical Exam - Constitutional Appears: Unkempt - Head Exam Head Exam: ATRAUMATIC, NORMAL INSPECTION, NORMOCEPHALIC - Eye Exam Eye Exam: EOMI, Normal appearance, PERRL - ENT Exam ENT Exam: Mucous Membranes Moist, Normal Exam - Neck Exam Neck exam: Positive for: Tenderness - Respiratory Exam Respiratory Exam: Rales, Wheezes - Cardiovascular Exam Cardiovascular Exam: REGULAR RHYTHM, +S1, +S2 - GI/Abdominal Exam GI & Abdominal Exam: Normal Bowel Sounds, Soft. absent: Tenderness - Rectal Exam Rectal Exam: Deferred - Extremities Exam Extremities exam: Positive for: normal inspection - Back Exam Back exam: NORMAL INSPECTION - Neurological Exam Neurological exam: Alert, CN II-XII Intact, Normal Gait, Oriented x3, Reflexes Normal Additional comments: Bilateral tremor, high frequency at hand/arm extension and with intention. Bilateral upper extremity fine motor deficits. Finger to nose was wide range and not able to localize with eyes closed. - Psychiatric Exam Psychiatric exam: Anxious, Normal Mood - Skin Skin Exam: Dry, Intact, Normal Color, Warm Results - Vital Signs Recent Vital Signs: Last Vital Signs Temp 99.1 F 02/23/17 08:12 Pulse 61 02/23/17 09:22 Resp 20 02/23/17 08:12 BP 162/82 H 02/23/17 00:00 Pulse Ox 96 02/23/17 08:12 - Labs Result Diagrams: 02/23/17 05:45 02/23/17 05:45 Labs: Laboratory Results - last 24 hr 02/22/17 02/22/17 02/23/17 06:00 06:00 05:45 WBC 6.6 RBC 4.21 L Hgb 12.9 Hct 39.3 MCV 93.3 MCH 30.7 MCHC 32.9 L RDW 13.2 Plt Count 148 Sodium Potassium Chloride Carbon Dioxide Anion Gap BUN Creatinine Est GFR ( Amer) Est GFR (Non-Af Amer) Random Glucose Calcium Urine Color Yellow Urine Clarity Clear Urine pH 6.0 Ur Specific [place] 1.028 Urine Protein 30 Urine Glucose (UA) >=500 Urine Ketones Negative Urine Blood Moderate Urine Nitrate Negative Urine Bilirubin Negative Urine Urobilinogen 0.2-1.0 Ur Leukocyte Esterase Neg Urine RBC (Auto) 4 H Urine Microscopic WBC 1 Ur Squamous Epith Cells 1 Urine Opiates Screen Positive H Urine Methadone Screen Negative Ur Barbiturates Screen Negative Ur Phencyclidine Scrn Negative Ur Amphetamines Screen Negative U Benzodiazepines Scrn Negative U Oth Cocaine Metabols Negative U Cannabinoids Screen Negative 02/23/17 05:45 WBC RBC Hgb Hct MCV MCH MCHC RDW Plt Count Sodium 135 Potassium 4.2 Chloride 95 L Carbon Dioxide 29 Anion Gap 15 BUN 29 H Creatinine 1.1 Est GFR ( Amer) > 60 Est GFR (Non-Af Amer) > 60 Random Glucose 171 H Calcium 9.4 Urine Color Urine Clarity Urine pH Ur Specific [place] Urine Protein Urine Glucose (UA) Urine Ketones Urine Blood Urine Nitrate Urine Bilirubin Urine Urobilinogen Ur Leukocyte Esterase Urine RBC (Auto) Urine Microscopic WBC Ur Squamous Epith Cells Urine Opiates Screen Urine Methadone Screen Ur Barbiturates Screen Ur Phencyclidine Scrn Ur Amphetamines Screen U Benzodiazepines Scrn U Oth Cocaine Metabols U Cannabinoids Screen Assessment & Plan (1) Headache Assessment and Plan: The differential for this patient is wide due to his complications of COPD, Hep C and drug use as well as his other conditions. It includes medication over-use /withdrawal headache, temporal arteritis, tension headache and could also be due to hypoxia. I recommend the followin. Telemetry 2. CT head without contrast 3. MRI/MRA of the head/neck without contrast 4. EEG awake and drowsy for 30 minutes. 5. Start depakote 500 mg BID for headaches, give 2 grams of Magnesium Sulfate IV 6. Gabapentin may help as well at 300 mg TID for the headache and may help with alcohol withdrawal 7. Continue IVF and treat underlying COPD exacerbation/infections 8. PT/OT eval 9. DVT Px Thank you. Status: Acute Priority: High
[2017-02-23 13:39] LABS: T4 6.41 ug/dl (5.5-11.0)
[2017-02-23] MEDS ORDERED: Iodixanol 320 MG/ML 100 ML BOTTLE IV ONE (13:42)
[2017-02-23 13:52] LABS: THYROID STIMULATING HORMONE 0.1 mIU/ML (0.46-4.68)
--- NOTE | 2017-02-23 14:32 | PN ---
DATE: 02/23/2017 SUBJECTIVE: The patient is seen and examined. Interim events noted. Consults noted and appreciated. Pulmonary followup and intervention noted and appreciated. The patient remains in regular medical floor. Complains of some withdrawal symptoms from his abuse. PHYSICAL EXAMINATION GENERAL: The patient is in no acute distress. VITAL SIGNS: Stable. HEART: S1 and S2 normal and regular. LUNGS: Shows still prolonged expiration and exacerbation of COPD, not under control; although, slightly better than yesterday. ABDOMEN: Soft, nontender. EXTREMITIES: No edema. No calf swelling. No tenderness. No acute ischemia. CENTRAL NERVOUS SYSTEM: Essentially unchanged. DIAGNOSTIC DATA: Available diagnostic data reviewed. ASSESSMENT: Overall, the patient's general medical condition is essentially same to slightly better. PLAN: As ordered. Yury Martínez MD
[2017-02-23] MEDS: Divalproex 500 mg DR(BID formulation) PO SCH (16:34)
[2017-02-23] MEDS ORDERED: Magnesium Oxide 400 mg Tab UD PO SCH (17:00)
--- NOTE | 2017-02-23 17:25 | CT ---
PROCEDURE: CT Angiography of the Brain. HISTORY: headache COMPARISON: No prior similar study available for comparison TECHNIQUE: CT angiography of the neck and intracranial arteries was performed. Coronal and sagittal maximum intensity projection reformated images were generated. This CT exam was performed using one or more of the following dose reduction techniques: Automated exposure control, adjustment of the mA and/or kV according to patient size, and/or use of iterative reconstruction technique. Total exam DLP: 2471.56 FINDINGS: CTA of the neck: The visualized portion of the aortic arch is normal in caliber. Small foci of atherosclerotic calcification noted in the aortic arch and main branches. Common carotid artery are patent demonstrate normal caliber and shape. The vertebral arteries are patent. Foci of mild stenosis noted at the distal portion of both vertebral arteries. Coarse foci of calcification noted at the carotid bifurcation without evidence of significant stenosis. No evidence of hemodynamically significant stenosis at the internal carotid arteries in the neck. Foci of atherosclerotic calcifications seen at the distal portion of the internal carotid arteries. INTERNAL CEREBRAL ARTERIES: The skull base, petrous, cavernous and supraclinoid segments are bilaterally widely patent. Atherosclerotic disease and foci of calcification noted ANTERIOR CEREBRAL ARTERIES: Unremarkable. A1 and A2 segments are widely patent. Smaller distal branches unremarkable, as visualized. MIDDLE CEREBRAL ARTERIES: The left middle cerebral artery appears smaller than the right. There is [id number] diffuse narrowing of the left middle cerebral artery. POSTERIOR CIRCULATION: Basilar Artery: The basilar artery is patent. Distal Vertebral Arteries: Atherosclerotic disease at mild to moderate foci of stenosis seen at the distal vertebral arteries. Posterior Cerebral Arteries: Unremarkable. Posterior Inferior Cerebellar Arteries: Unremarkable. ANEURYSM/ VASCULAR MALFORMATIONS: None. OTHER FINDINGS: None. IMPRESSION: No evidence of aneurysm in the intracranial arteries. Moderate atherosclerotic disease noted associated with scattered foci of calcification. The left middle cerebral artery is smaller than the right demonstrate mild diffuse irregularity and pokl-or-[id number] diffuse stenosis likely due to atherosclerotic disease. Coarse calcifications seen at the carotid bifurcation in the neck without evidence of significant stenosis.
--- NOTE | 2017-02-23 18:06 | MRI ---
PROCEDURE: MRI BRAIN WITHOUT CONTRAST HISTORY: headache COMPARISON: None. TECHNIQUE: Multiplanar, multisequence MR images of the brain were obtained without intravenous contrast enhancement. FINDINGS: HEMORRHAGE: None DWI: No evidence of an acute or early subacute infarction. BRAIN PARENCHYMA: No mass effect or edema. Periventricular and subcortical foci of hyperintense T2 and FLAIR signal seen in the white matter suggestive but nonspecific for chronic microvascular ischemic disease. VENTRICLES: Unremarkable. No hydrocephalus. CRANIUM: Unremarkable. ORBITS: Grossly unremarkable. PARANASAL SINUSES/MASTOIDS: Mild paranasal sinuses mucosal thickening noted. VASCULAR SYSTEM: Skull base flow voids intact. OTHER FINDINGS: None. IMPRESSION: No evidence of acute infarction. No evidence of mass lesion mass effect or midline shift. Moderate white matter changes noted suggestive but nonspecific for chronic microvascular ischemic disease. Mild sinuses mucosal disease.
--- NOTE | 2017-02-23 18:44 | MRI ---
PROCEDURE: Magnetic Resonance Angiography Brain HISTORY: headache COMPARISON: None available. TECHNIQUE: 3D time of flight MR angiography of the intracranial arteries was performed. Rotating maximum intensity projection images were generated. FINDINGS: INTERNAL CAROTID ARTERIES: Mild diffuse irregularity suggestive of atherosclerotic disease. The skull base, petrous, cavernous and supraclinoid segments are bilaterally widely patient. ANTERIOR CEREBRAL ARTERIES: Unremarkable. A1 and A2 segments are widely patent. Smaller distal branches unremarkable, as visualized. MIDDLE CEREBRAL ARTERIES: The left middle cerebral artery is slightly smaller than the right demonstrate mild diffuse irregularity suggestive of atherosclerotic disease P Unremarkable. M1 and M2 segments are widely patent. Perisylvian branches grossly symmetric. POSTERIOR CIRCULATION: Basilar Artery: Unremarkable. Distal Vertebral Arteries: Unremarkable. Posterior Cerebral Arteries: Unremarkable. Posterior Inferior Cerebellar Arteries: Unremarkable. ANEURYSM/ VASCULAR MALFORMATIONS: None. OTHER FINDINGS: None. IMPRESSION: No evidence of acute pathology. No evidence of aneurysm. [id number] diffuse atherosclerotic disease.
[2017-02-24] MEDS: Promethazine 12.5 mg/10 ml Syrup PO SCH ×4 (01:44→13:26)
[2017-02-24] MEDS: Albuterol-Ipratrop 3 mg / 0.5 (3 ml) UD INH SCH ×6 (04:57→23:35)
--- NOTE | 2017-02-24 07:46 | CP.PCM.PN ---
Subjective - Date & Time of Evaluation Date of Evaluation: 02/24/17 Time of Evaluation: 07:41 - Subjective Subjective: Mr. Ledesma was seen and examined at the bedside. He is alert and states of experiencing frontal headache, non-radiating, with pain scale 9/10, characterize as a pressure-like. His blood pressure is elevated this am. He is able to answer questions appropriately and follow simple commands. He denies any blurred vision, nausea, or vomiting. CTA of the head and neck, MRI and MRA of the head all showed atherosclerotic disease of the cerebral artery. Encourage patient to be compliant to his medical treatment, verbalizes understanding. There was no untoward events overnight. Objective - Vital Signs/Intake and Output Vital Signs (last 24 hours): Temp Pulse Resp BP Pulse Ox 98.5 F 88 18 154/89 H 98 02/24/17 05:22 02/24/17 05:22 02/24/17 05:22 02/24/17 05:22 02/24/17 05:22 - Medications Medications: Current Medications Acetaminophen (Tylenol 325mg Tab) 650 mg PO Q6 PRN PRN Reason: Headache Last Admin: 02/22/17 16:20 Dose: 650 mg Acetylcysteine (Acetylcysteine 20%) 2 ml INH RBID [facility] Last Admin: 02/23/17 07:52 Dose: Not Given Albuterol/Ipratropium (Duoneb 3 Mg/0.5 Mg (3 Ml) Ud) 3 ml INH RQ4 [facility] Last Admin: 02/24/17 04:57 Dose: 3 ml Amlodipine Besylate (Norvasc) 10 mg PO DAILY [facility] Last Admin: 02/23/17 09:22 Dose: 10 mg Aspirin (Ecotrin) 81 mg PO DAILY [facility] Last Admin: 02/23/17 09:21 Dose: 81 mg Atorvastatin Calcium (Lipitor) 40 mg PO DAILY [facility] Bisoprolol Fumarate (Zebeta) 5 mg PO DAILY [facility] Chlordiazepoxide (Librium) 25 mg PO 0000,0600,1200,1800 [facility] Last Admin: 02/24/17 06:51 Dose: Not Given Divalproex Sodium (Depakote Dr(*Bid*)) 500 mg PO BID [facility] Last Admin: 02/23/17 16:34 Dose: 500 mg Enoxaparin Sodium (Lovenox) 40 mg SC DAILY [facility] PRN Reason: Protocol Last Admin: 02/23/17 09:20 Dose: 40 mg Escitalopram Oxalate (Lexapro) 10 mg PO DAILY [facility] Last Admin: 02/23/17 11:45 Dose: 10 mg Folic Acid (Folic Acid) 1 mg PO DAILY [facility] Last Admin: 02/23/17 09:21 Dose: 1 mg Gabapentin (Neurontin) 300 mg PO TID [facility] Last Admin: 02/23/17 22:09 Dose: 300 mg Levofloxacin/Dextrose (Levaquin 500mg) 500 mg in 100 mls @ 100 mls/hr IVPB DAILY [facility] PRN Reason: Protocol Last Admin: 02/23/17 09:19 Dose: 100 mls/hr Ibuprofen (Motrin Tab) 600 mg PO Q8 PRN PRN Reason: Pain, moderate (4-7) Last Admin: 02/24/17 05:58 Dose: 600 mg Methylprednisolone (Solu-Medrol) 80 mg IV Q6H [facility] Last Admin: 02/24/17 03:29 Dose: 80 mg Ondansetron HCl (Zofran Inj) 4 mg IVP Q4 PRN PRN Reason: Nausea/Vomiting Last Admin: 02/22/17 18:00 Dose: 4 mg Promethazine HCl (Phenergan Syrup) 12.5 mg PO Q4 [facility] Last Admin: 02/24/17 05:21 Dose: Not Given Risperidone (Risperdal Tab) 0.5 mg PO HS [facility] Last Admin: 02/23/17 22:08 Dose: 0.5 mg Fluticasone/Salmeterol (Advair Diskus 500/50) 1 puff IH BID [facility] Last Admin: 02/23/17 16:33 Dose: 1 puff Thiamine HCl (Vitamin B1 Tab) 100 mg PO DAILY [facility] Last Admin: 02/23/17 09:21 Dose: 100 mg - Labs Labs: 02/23/17 05:45 02/23/17 05:45 - Constitutional Appears: No Acute Distress - Head Exam Head Exam: ATRAUMATIC - Neurological Exam Neurological Exam: Alert, Awake Neuro motor strength exam: Left Upper Extremity: 5, Right Upper Extremity: 5, Left Lower Extremity: 5, Right Lower Extremity: 5 Additional comments: He is able to follow simple commands, minimal restlessness. Sensation remains intact. - Psychiatric Exam Psychiatric exam: Anxious Assessment and Plan (1) Cerebral atherosclerosis Assessment & Plan: Case discussed with Dr. Arita, recommends for patient for dual anti-platelet, plavix 75 mg PO daily to be added with aspirin. Increase Lipitor from 10 mg to 40 mg PO daily. Pending MRA of the neck. Continue all other medical regimen. Status: Acute (2) Headache Assessment & Plan: Case discussed with Dr. Arita, recommends Magnesium 2 gm. IVPB for one dose. continue depakote 500 mg PO BID. Pending EEG. If headache worsen to repeat CT ogf the head without. Please refer to primary physician regarding elevated blood pressure. Status: Acute
[2017-02-24] MEDS: Acetylcysteine 20% Inhal Soln (4ml) INH SCH (07:51)
[2017-02-24] MEDS ORDERED: Magnesium Sulfate 2 gm/50 ml 2 GM/50 ML BAG IV ONE (08:15)
[2017-02-24] MEDS: Fluticasone-Salmeterol 500-50mcg Diskus IH SCH ×2 (08:33→17:24)
[2017-02-24] MEDS: Enoxaparin 40 mg Syringe SC SCH (08:34)
[2017-02-24] MEDS: Divalproex 500 mg DR(BID formulation) PO SCH (08:34)
--- NOTE | 2017-02-24 09:21 | CP.PCM.PN ---
Subjective - Date & Time of Evaluation Date of Evaluation: 02/24/17 Time of Evaluation: 09:21 - Subjective Subjective: SOB IMPROVED C/O HEADACHES Objective - Vital Signs/Intake and Output Vital Signs (last 24 hours): Temp Pulse Resp BP Pulse Ox 97.9 F 82 20 191/103 H 97 02/24/17 08:00 02/24/17 08:35 02/24/17 08:00 02/24/17 08:35 02/24/17 08:00 - Medications Medications: Current Medications Acetaminophen (Tylenol 325mg Tab) 650 mg PO Q6 PRN PRN Reason: Headache Last Admin: 02/22/17 16:20 Dose: 650 mg Acetylcysteine (Acetylcysteine 20%) 2 ml INH RBID [facility] Last Admin: 02/24/17 07:51 Dose: 2 ml Albuterol/Ipratropium (Duoneb 3 Mg/0.5 Mg (3 Ml) Ud) 3 ml INH RQ4 [facility] Last Admin: 02/24/17 07:52 Dose: 3 ml Amlodipine Besylate (Norvasc) 10 mg PO DAILY [facility] Last Admin: 02/24/17 08:35 Dose: 10 mg Aspirin (Ecotrin) 81 mg PO DAILY [facility] Last Admin: 02/24/17 08:34 Dose: 81 mg Atorvastatin Calcium (Lipitor) 40 mg PO [facility] Bisoprolol Fumarate (Zebeta) 5 mg PO DAILY [facility] Last Admin: 02/24/17 08:37 Dose: 5 mg Chlordiazepoxide (Librium) 25 mg PO 0000,0600,1200,1800 [facility] Last Admin: 02/24/17 06:51 Dose: Not Given Clopidogrel Bisulfate (Plavix) 75 mg PO DAILY [facility] Last Admin: 02/24/17 08:39 Dose: 75 mg Divalproex Sodium (Depakote Dr(*Bid*)) 500 mg PO BID [facility] Last Admin: 02/24/17 08:34 Dose: 500 mg Enoxaparin Sodium (Lovenox) 40 mg SC DAILY [facility] PRN Reason: Protocol Last Admin: 02/24/17 08:34 Dose: 40 mg Escitalopram Oxalate (Lexapro) 10 mg PO DAILY [facility] Last Admin: 02/24/17 08:34 Dose: 10 mg Folic Acid (Folic Acid) 1 mg PO DAILY [facility] Last Admin: 02/24/17 08:34 Dose: 1 mg Gabapentin (Neurontin) 300 mg PO TID [facility] Last Admin: 02/24/17 08:35 Dose: 300 mg Levofloxacin/Dextrose (Levaquin 500mg) 500 mg in 100 mls @ 100 mls/hr IVPB DAILY [facility] PRN Reason: Protocol Last Admin: 02/23/17 09:19 Dose: 100 mls/hr Ibuprofen (Motrin Tab) 600 mg PO Q8 PRN PRN Reason: Pain, moderate (4-7) Last Admin: 02/24/17 05:58 Dose: 600 mg Lisinopril (Zestril) 20 mg PO DAILY [facility] Lisinopril (Zestril) 10 mg PO DAILY@1700 [facility] Methylprednisolone (Solu-Medrol) 80 mg IV Q6H [facility] Last Admin: 02/24/17 03:29 Dose: 80 mg Ondansetron HCl (Zofran Inj) 4 mg IVP Q4 PRN PRN Reason: Nausea/Vomiting Last Admin: 02/22/17 18:00 Dose: 4 mg Promethazine HCl (Phenergan Syrup) 12.5 mg PO Q4 [facility] Last Admin: 02/24/17 08:36 Dose: Not Given Risperidone (Risperdal Tab) 0.5 mg PO HS [facility] Last Admin: 02/23/17 22:08 Dose: 0.5 mg Fluticasone/Salmeterol (Advair Diskus 500/50) 1 puff IH BID [facility] Last Admin: 02/24/17 08:33 Dose: 1 puff Thiamine HCl (Vitamin B1 Tab) 100 mg PO DAILY [facility] Last Admin: 02/24/17 08:37 Dose: 100 mg - Labs Labs: 02/23/17 05:45 02/23/17 05:45 - Constitutional Appears: In Acute Distress - Head Exam Head Exam: ATRAUMATIC, NORMAL INSPECTION, NORMOCEPHALIC - Eye Exam Eye Exam: EOMI, Normal appearance, PERRL Pupil Exam: NORMAL ACCOMODATION, PERRL - ENT Exam ENT Exam: Mucous Membranes Moist, Normal Exam - Neck Exam Neck Exam: Full ROM, Normal Inspection. absent: Lymphadenopathy - Respiratory Exam Respiratory Exam: Decreased Breath Sounds, Prolonged Expiratory Phase, Wheezes, NORMAL BREATHING PATTERN - Cardiovascular Exam Cardiovascular Exam: REGULAR RHYTHM, +S1, +S2. absent: Murmur - GI/Abdominal Exam GI & Abdominal Exam: Soft, Normal Bowel Sounds. absent: Tenderness - Rectal Exam Rectal Exam: NORMAL INSPECTION - Extremities Exam Extremities Exam: Full ROM, Normal Capillary Refill, Normal Inspection. absent : Joint Swelling, Pedal Edema - Back Exam Back Exam: NORMAL INSPECTION - Neurological Exam Neurological Exam: Alert, Awake, CN II-XII Intact, Normal Gait, Oriented x3 - Psychiatric Exam Psychiatric exam: Normal Affect, Normal Mood - Skin Skin Exam: Dry, Intact, Normal Color, Warm Assessment and Plan - Assessment and Plan (Free Text) Assessment: COPD IMPROVING HEADACHES?ETIOLOGY Plan: TAPER STEROIDS CONTINUE RX PER NEUROLOGY
[2017-02-24 09:30] LABS: HOMOCYSTEINE 13.2 umol/L (<11.4)
--- NOTE | 2017-02-24 09:33 | CP.PCM.PN ---
Subjective - Date & Time of Evaluation Date of Evaluation: 02/24/17 Time of Evaluation: 07:25 - Subjective Subjective: Patient seen and examined bedside with attending DR Martínez. Patient was transferred to telemetry last night. Patient c/o headache this morning and high PtPt blood pressure noted 193/103. Medications given norvasc, bisoprolol. patient breathing room air and breathing with less difficulty. Pt noticed with some withdrawal symptoms tremor, headache. Librium ATC. 10:00 am Im called by PAMELLA Miller and saw patient bedside again. Patient noticed by nurse with confusion and AMS, slurred speech, b/l hand tremor , no seizure activity. no motor deficit appreciated. denies visual or auditory hallucinations. Dr martínez notified by phone. CT head stat ordered . BP 166/88 better now. Hr: 88. Objective - Vital Signs/Intake and Output Vital Signs (last 24 hours): Temp Pulse Resp BP Pulse Ox 97.9 F 82 20 191/103 H 97 02/24/17 08:00 02/24/17 08:35 02/24/17 08:00 02/24/17 08:35 02/24/17 08:00 - Medications Medications: Current Medications Acetaminophen (Tylenol 325mg Tab) 650 mg PO Q6 PRN PRN Reason: Headache Last Admin: 02/22/17 16:20 Dose: 650 mg Acetylcysteine (Acetylcysteine 20%) 2 ml INH RBID [facility] Last Admin: 02/24/17 07:51 Dose: 2 ml Albuterol/Ipratropium (Duoneb 3 Mg/0.5 Mg (3 Ml) Ud) 3 ml INH RQ4 [facility] Last Admin: 02/24/17 07:52 Dose: 3 ml Amlodipine Besylate (Norvasc) 10 mg PO DAILY [facility] Last Admin: 02/24/17 08:35 Dose: 10 mg Aspirin (Ecotrin) 81 mg PO DAILY [facility] Last Admin: 02/24/17 08:34 Dose: 81 mg Atorvastatin Calcium (Lipitor) 40 mg PO HS [facility] Bisoprolol Fumarate (Zebeta) 5 mg PO DAILY [facility] Last Admin: 02/24/17 08:37 Dose: 5 mg Chlordiazepoxide (Librium) 25 mg PO 0000,0600,1200,1800 [facility] Last Admin: 02/24/17 06:51 Dose: Not Given Clopidogrel Bisulfate (Plavix) 75 mg PO DAILY [facility] Last Admin: 02/24/17 08:39 Dose: 75 mg Divalproex Sodium (Depakote Dr(*Bid*)) 500 mg PO BID [facility] Last Admin: 02/24/17 08:34 Dose: 500 mg Enoxaparin Sodium (Lovenox) 40 mg SC DAILY [facility] PRN Reason: Protocol Last Admin: 02/24/17 08:34 Dose: 40 mg Escitalopram Oxalate (Lexapro) 10 mg PO DAILY [facility] Last Admin: 02/24/17 08:34 Dose: 10 mg Folic Acid (Folic Acid) 1 mg PO DAILY [facility] Last Admin: 02/24/17 08:34 Dose: 1 mg Gabapentin (Neurontin) 300 mg PO TID [facility] Last Admin: 02/24/17 08:35 Dose: 300 mg Levofloxacin/Dextrose (Levaquin 500mg) 500 mg in 100 mls @ 100 mls/hr IVPB DAILY [facility] PRN Reason: Protocol Last Admin: 02/23/17 09:19 Dose: 100 mls/hr Ibuprofen (Motrin Tab) 600 mg PO Q8 PRN PRN Reason: Pain, moderate (4-7) Last Admin: 02/24/17 05:58 Dose: 600 mg Lisinopril (Zestril) 10 mg PO DAILY@1700 [facility] Lisinopril (Zestril) 20 mg PO ONCE ONE Stop: 02/24/17 09:27 Methylprednisolone (Solu-Medrol) 40 mg IV DAILY [facility] Ondansetron HCl (Zofran Inj) 4 mg IVP Q4 PRN PRN Reason: Nausea/Vomiting Last Admin: 02/22/17 18:00 Dose: 4 mg Promethazine HCl (Phenergan Syrup) 12.5 mg PO Q4 [facility] Last Admin: 02/24/17 08:36 Dose: Not Given Risperidone (Risperdal Tab) 0.5 mg PO HS [facility] Last Admin: 02/23/17 22:08 Dose: 0.5 mg Fluticasone/Salmeterol (Advair Diskus 500/50) 1 puff IH BID [facility] Last Admin: 02/24/17 08:33 Dose: 1 puff Thiamine HCl (Vitamin B1 Tab) 100 mg PO DAILY [facility] Last Admin: 02/24/17 08:37 Dose: 100 mg - Labs Labs: 02/23/17 05:45 02/23/17 05:45 - Constitutional Appears: Non-toxic, Confused - Head Exam Head Exam: ATRAUMATIC, NORMOCEPHALIC - Eye Exam Eye Exam: Normal appearance - Neck Exam Neck Exam: Full ROM, Normal Inspection - Respiratory Exam Respiratory Exam: Wheezes (B/L scattered expiratory wheezing betterh compared with yesterday. ). absent: Rales, Rhonchi - Cardiovascular Exam Cardiovascular Exam: REGULAR RHYTHM, +S1, +S2 - GI/Abdominal Exam GI & Abdominal Exam: Soft, Normal Bowel Sounds. absent: Tenderness, Rebound - Extremities Exam Extremities Exam: Normal Inspection. absent: Pedal Edema - Neurological Exam Neurological Exam: Altered, Awake (confused, lethargic. no motor deficit appreciated, moving 4 ext, no facial drop, no meningeal signs) Neuro motor strength exam: Left Upper Extremity: 4, Right Upper Extremity: 4, Left Lower Extremity: 4, Right Lower Extremity: 4 Assessment and Plan (1) COPD exacerbation Status: Acute (2) Hypertension Status: Acute (3) ETOH abuse Status: Acute (4) DVT prophylaxis Status: Acute - Assessment and Plan (Free Text) Plan: Assessment & Plan (1) COPD exacerbation Assessment and Plan: -improving Xr No infiltrates Pulmonology consult appreciated c/w metylprednisone, levaquin Status: Acute (2) Hypertension Assessment and Plan: -uncontrolled Switch from metoprolol to Bisoprolol -Norvasc -lisinopril Status: Acute (3) ETOH withdrawal Assessment and Plan: - CIWA score 18 -librium q6h -s/p Mgsulfate, Depakote Status: Acute 4) AMS -secondary to ETOh withdrawal, delirium trem - no psych symptoms now -Psyq consult appreciated. or risperidone,lexapro -CT Head Stat (5)Headache -secondary to ETOh withdrawal and uncontrolled HTN - Neuro consult appreciated -depakote -MRI brain neg (6) DVT prophylaxis Assessment and Plan: Lovenox 40 mg sc Status: Acute
[2017-02-24 11:07] LABS: ABG ALLEN TEST YES; ARTERIAL BLOOD GAS HCO3 27.8 mmol/L (21-28); ARTERIAL BLOOD GAS O2 CAPACITY 21.5 mL/dL (16-24); ARTERIAL BLOOD GAS O2 CONTENT 21.3 ML/dL (15-23); ARTERIAL BLOOD GAS PH 7.51 (7.35-7.45); ARTERIAL BLOOD GAS PO2 82 mm/Hg (80-100); ARTERIAL BLOOD HGB O2 SAT 95.4 % (95.0-98.0); CARBOXYHEMOGLOBIN 2.2 % (0.5-1.5); HHB 1.1 % (0.0-5.0); METHEMOGLOBIN 1.3 % (0.0-3.0)
--- NOTE | 2017-02-24 11:10 | CARD ---
APPROVED REPORT EXAM: Two-dimensional and M-mode echocardiogram with Doppler and color Doppler. Other Information Quality : FairRhythm : NSR Technically limited study due to Pt Very Restless INDICATION Syncope 2D DIMENSIONS IVSd1.48 (0.7-1.1cm)LVDd4.78 (3.9-5.9cm) LVOT Diameter1.81 (1.8-2.4cm)PWd1.00 (0.7-1.1cm) IVSs1.42 (0.8-1.2cm)LVDs4.75 (2.5-4.0cm) FS (%) 0.7 %PWs0.99 (0.8-1.2cm) M-Mode DIMENSIONS Left Atrium (MM)3.72 (2.5-4.0cm)IVSd1.34 (0.7-1.1cm) Aortic Root3.38 (2.2-3.7cm)LVDd5.91 (4.0-5.6cm) Aortic Cusp Exc.2.44 (1.5-2.0cm)PWd1.25 (0.7-1.1cm) IVSs1.81 cmFS (%) 46 % LVDs3.22 (2.0-3.8cm)PWs2.31 cm Mitral Valve E/A ratio0.0 TDI E/Lateral E'0.0E/Medial E'0.0 LEFT VENTRICLE The left ventricle is normal size. There is normal left ventricular wall thickness. The left ventricular function is normal. The left ventricular ejection fraction is 60% There is normal LV segmental wall motion. The left ventricular diastolic function is normal. No left ventricle thrombus noted on this study. There is no ventricular septal defect visualized. There is no left ventricular aneurysm. There is no mass noted in the left ventricle. RIGHT VENTRICLE The right ventricle is normal size. There is normal right ventricular wall thickness. The right ventricular systolic function is normal. ATRIA The left atrium size is normal. The right atrium size is normal. The interatrial septum is intact with no evidence for an atrial septal defect. AORTIC VALVE The aortic valve is normal in structure. No aortic regurgitation is present. There is no aortic valvular stenosis. There is no aortic valvular vegetation. MITRAL VALVE The mitral valve is normal in structure. There is no evidence of mitral valve prolapse. There is no mitral valve stenosis. There is no mitral valve regurgitation noted. TRICUSPID VALVE The tricuspid valve is normal in structure. There is no tricuspid valve regurgitation noted. There is no tricuspid valve prolapse or vegetation. There is no tricuspid valve stenosis. PULMONIC VALVE The pulmonary valve is normal in structure. There is no pulmonic valvular regurgitation. There is no pulmonic valvular stenosis. GREAT VESSELS The aortic root is normal in size. The ascending aorta is normal in size. The IVC is normal in size and collapses >50% with inspiration. PERICARDIAL EFFUSION The pericardium appears normal. There is no pleural effusion. <Conclusion> Normal Echocardiogram
[2017-02-24 11:11] LABS: PARTIAL THROMBOPLASTIN TIME 28.6 Seconds (25.6-37.1)
--- NOTE | 2017-02-24 12:41 | CT ---
PROCEDURE: CT HEAD WITHOUT CONTRAST. HISTORY: AMS COMPARISON: February 23, 2017. MRI brain TECHNIQUE: Axial computed tomography images were obtained through the head/brain without intravenous contrast. Coronal and sagittal reconstructed images. Radiation dose: Total exam DLP = 1752.88 mGy-cm. This CT exam was performed using one or more of the following dose reduction techniques: Automated exposure control, adjustment of the mA and/or kV according to patient size, and/or use of iterative reconstruction technique. FINDINGS: HEMORRHAGE: No intracranial hemorrhage. BRAIN: No mass effect or edema. Small lacune inter infarct on the left less than 5 mm. VENTRICLES: Unremarkable. No hydrocephalus. CALVARIUM: Unremarkable. PARANASAL SINUSES: Chronic sphenoid and ethmoid air cell disease. No evidence of acute sinusitis. MASTOID AIR CELLS: Unremarkable as visualized. No inflammatory changes. OTHER FINDINGS: None. IMPRESSION: No acute intracranial abnormalities. No significant findings to account for the clinical presentation. Additional benign and/or incidental findings described above.
[2017-02-24 12:48] LABS: TROPONIN I 0.026 ng/mL (0.00-0.120)
--- NOTE | 2017-02-24 13:53 | CP.CCUPN ---
CCU Subjective - Physician Review Subjective (Free Text): Transfer to ICU from [facility] Tele unit for increasing sedation / lethargy and ETOH withdrawal syndrome: much of HPI obtained from [employer], Resident team, Nurse on Telemetry unit. 51 M admitted 2 days ago for chest pain, AMI rued out, on Tele unit with increasing periods of agitation and hallucinations, placed on multiple medications with sedative properties including Librium, Lexapro, Phenergan, Risperdal, Neurontin, Depakote. Now under deep sedation and poorly responsive to deep pain stimuli, no resp distress noted, but intermittent upper body / shoulder myoclonic activity with almost flailing of the arms. He does not follow any verbal commands, does not appear distressed, nor diaphoretic. CT brain was done this AM and negative for acute pathology. He has been on ASA and Plavix as well. Labs reviewed: UDS + for opiates, no ETOH level done on admission, but patient admitted to daily ETOH use and stopped 2 days [employer]. CXR done on 02/22/17 is clear, he did complain of fevers at home prior to admission with productive sputum of yellow phlegm. Other vitals and I/O's reviewed. No fever spikes; SBP range 190-150s. HR 90s sinus. SPO2 97% RA. ROS: Unobtainable, nonverbal patient, lethargic. No other pertinent negs or positives on 10+ system review. PMSFH: COPD, Hep C, HTN, Gastritis, + 80 pk yr smoker, + daily ETOH, Heroin use in the past. All other Nursing and physician documentation reviewed to date; no new pertinent info noted relevant to current medical problems. EKG: sinus, rate 92, otherwise normal study ( my interp). CXR: normal (my Interp). IMPRESSION / MAJOR PROBLEMS NOW: 1. Lethargy 2 Multi-medication sedation 2. Hallucinations 2 ETOH withdrawal Syndrome versus Opiate withdrawal 3. Acute Tracheobronchitis; r/o Pneumonitis 4. Uncontrolled HTN PLAN: 1. Stop / HOLD: all other meds with sedative properties for now, except for Librium. Will give Ativan IVP prn if he is unable to tolerate PO Librium. 2. 1:1 supervision 3. IVF hydration 4. Empiric abx coverage. Watch for development of aspiration pneumonia. 5. Stop Steroids. Use Duonebs for any bronchospasm for now. He does not appear to need assisted breathing support, nor airway protection at this time ( Gag+). Maintain close monitoring of resp status. 6. Continue with PO Antihypertensives, Labetalol on reserve PRN if sustained MAP elevation above 120. 7. He has had CT and Brain MRI studies, but if lethargy does not resolve over time, will consider repeat Brain imaging. As of now, there is no focality on Neurologic exam. Consider EEG, r/o cryptogenic; non-convulsive seizure activity. CCU Objective - Vital Signs / Intake & Output Vital Signs (Last 4 hours): Vital Signs Temp Pulse Resp BP Pulse Ox 02/24/17 12:00 98.6 F 97 H 20 168/101 H 97 - Physical Exam Head: Positive for: Normocephalic Pupils: Positive for: PERRL, Sluggish Extroacular Muscles: Positive for: EOMI Conjunctiva: Positive for: Normal. Negative for: Icteric Mouth: Positive for: Dry Neck: Positive for: Normal Range of Motion. Negative for: Meningeal Signs, JVD Respiratory/Chest: Positive for: Clear to Auscultation. Negative for: Accessory Muscle Use, Wheezes Cardiovascular: Positive for: Regular Rate and Rhythm, Normal S1, S2. Negative for: Murmurs, Rub Abdomen: Positive for: Normal Bowel Sounds. Negative for: Tenderness, Distention, Mass/Organomegaly Lower Extremity: Positive for: Normal Inspection, NORMAL PULSES. Negative for: Edema, CALF TENDERNESS, Cyanosis Neurological: Positive for: Motor Func Grossly Intact, Normal Cerebellar Funct ( unable to test). Negative for: GCS=15 (GCS= 8 (E2V2M4)) Skin: Positive for: Warm, Dry. Negative for: Rashes Psychiatric: Positive for: Lethargic. Negative for: Alert, Oriented x 3 - Medications Active Medications: Active Medications Generic Name Dose Route Start Last Admin Trade Name Freq PRN Reason Stop Dose Admin Acetaminophen 650 mg 02/22/17 16:03 02/22/17 16:20 Tylenol 325mg Tab PO 650 mg Q6 PRN Administration Headache Acetylcysteine 2 ml 02/22/17 20:00 02/24/17 07:51 Acetylcysteine 20% INH 2 ml RBID YEYO Administration Albuterol/Ipratropium 3 ml 02/22/17 08:51 02/24/17 11:35 Duoneb 3 Mg/0.5 Mg (3 Ml) Ud INH 3 ml RQ4 YEYO Administration Amlodipine Besylate 10 mg 02/22/17 09:15 02/24/17 08:35 Norvasc PO 10 mg DAILY YEYO Administration Aspirin 81 mg 02/22/17 09:15 02/24/17 08:34 Ecotrin PO 81 mg DAILY YEYO Administration Atorvastatin Calcium 40 mg 02/24/17 22:00 Lipitor PO HS [facility] Bisoprolol Fumarate 5 mg 02/24/17 07:30 02/24/17 08:37 Zebeta PO 5 mg DAILY YEYO Administration Chlordiazepoxide 50 mg 02/24/17 13:21 Librium PO Q6 [facility] Clonidine HCl 0.1 mg 02/24/17 17:00 Catapres PO BID [facility] Clopidogrel Bisulfate 75 mg 02/24/17 09:00 02/24/17 08:39 Plavix PO 75 mg DAILY [facility] Administration Divalproex Sodium 500 mg 02/23/17 17:00 02/24/17 08:34 Jyoti Newman(*Bid*) PO 500 mg BID [facility] Administration Enoxaparin Sodium 40 mg 02/22/17 09:15 02/24/17 08:34 Lovenox SC 40 mg DAILY [facility] Administration Protocol Escitalopram Oxalate 10 mg 02/22/17 12:30 02/24/17 08:34 Lexapro PO 10 mg DAILY [facility] Administration Folic Acid 1 mg 02/22/17 09:15 02/24/17 08:34 Folic Acid PO 1 mg DAILY [facility] Administration Gabapentin 300 mg 02/23/17 13:00 02/24/17 08:35 Neurontin PO 300 mg TID [facility] Administration Levofloxacin/Dextrose 500 mg in 100 mls @ 100 mls/hr 02/22/17 09:30 02/23/17 09:19 Levaquin 500mg IVPB 100 mls/hr DAILY [facility] Administration Protocol Ibuprofen 600 mg 02/22/17 20:37 02/24/17 05:58 Motrin Tab PO 600 mg Q8 PRN Administration Pain, moderate (4-7) Labetalol HCl 20 mg 02/24/17 13:17 Trandate IVP Q6H PRN Systolic Blood Pressure Lisinopril 10 mg 02/24/17 17:00 Zestril PO DAILY@1700 [facility] Ondansetron HCl 4 mg 02/22/17 17:49 02/22/17 18:00 Zofran Inj IVP 4 mg Q4 PRN Administration Nausea/Vomiting Promethazine HCl 12.5 mg 02/22/17 13:00 02/24/17 08:36 Phenergan Syrup PO Not Given Q4 YEYO Risperidone 0.5 mg 02/22/17 22:00 02/23/17 22:08 Risperdal Tab PO 0.5 mg HS YEYO Administration Fluticasone/Salmeterol 1 puff 02/22/17 09:15 02/24/17 08:33 Advair Diskus 500/50 IH 1 puff BID YEYO Administration Thiamine HCl 100 mg 02/22/17 09:15 02/24/17 08:37 Vitamin B1 Tab PO 100 mg DAILY YEYO Administration - Patient Studies Lab Studies: Microbiology Studies 02/22/17 04:00 Blood Culture - Preliminary Blood-Venous NO GROWTH AFTER 48 HOURS 02/22/17 04:51 Blood Culture - Preliminary Blood-Venous NO GROWTH AFTER 48 HOURS Lab Studies 02/24/17 02/24/17 02/24/17 Range/Units 12:09 10:50 10:03 ESR (0-20) mm/hr PT 11.8 (9.8-13.1) Seconds INR 1.1 (0.9-1.2) APTT 28.6 (25.6-37.1) Seconds pCO2 33 L (35-45) mm/Hg pO2 82 (80-100) mm/Hg HCO3 27.8 (21-28) mmol/L ABG pH 7.51 H (7.35-7.45) ABG Total CO2 27.3 (22-28) mmol/L ABG O2 Saturation 98.9 H (95-98) % ABG O2 Content 21.3 (15-23) ML/dL ABG Base Excess 3.8 H (-2.0-3.0) mmol/L ABG Hemoglobin 15.9 (11.7-17.4) g/dL ABG Carboxyhemoglobin 2.2 H (0.5-1.5) % POC ABG HHb (Measured) 1.1 (0.0-5.0) % ABG Methemoglobin 1.3 (0.0-3.0) % ABG O2 Capacity 21.5 (16-24) mL/dL Wei Test Yes A-a O2 Difference 26.0 mm/Hg Hgb O2 Saturation 95.4 (95.0-98.0) % FiO2 21.0 % Hemoglobin A1c (4.2-6.5) % CK-MB (Mass) 1.42 (0.0-3.38) ng/mL Troponin I 0.0260 (0.00-0.120) ng/mL C-React Prot High Sens (1.00-3.00) mg/L Vitamin B12 (239-931) pg/mL 25-OH Vitamin D Total (30.0-100.0) NG/ML Homocysteine ( <11.4) umol/L Thyroxine (T4) (5.5-11.0) ug/dl Total T3 (1.49-2.60) nmol/L TSH 3rd Generation (0.46-4.68) mIU/ML 02/23/17 02/23/17 02/23/17 Range/Units 16:22 14:33 14:33 ESR 27 H (0-20) mm/hr PT (9.8-13.1) Seconds INR (0.9-1.2) APTT (25.6-37.1) Seconds pCO2 (35-45) mm/Hg pO2 (80-100) mm/Hg HCO3 (21-28) mmol/L ABG pH (7.35-7.45) ABG Total CO2 (22-28) mmol/L ABG O2 Saturation (95-98) % ABG O2 Content (15-23) ML/dL ABG Base Excess (-2.0-3.0) mmol/L ABG Hemoglobin (11.7-17.4) g/dL ABG Carboxyhemoglobin (0.5-1.5) % POC ABG HHb (Measured) (0.0-5.0) % ABG Methemoglobin (0.0-3.0) % ABG O2 Capacity (16-24) mL/dL Wei Test A-a O2 Difference mm/Hg Hgb O2 Saturation (95.0-98.0) % FiO2 % Hemoglobin A1c (4.2-6.5) % CK-MB (Mass) (0.0-3.38) ng/mL Troponin I (0.00-0.120) ng/mL C-React Prot High Sens 10.63 H (1.00-3.00) mg/L Vitamin B12 (239-931) pg/mL 25-OH Vitamin D Total 17.8 L (30.0-100.0) NG/ML Homocysteine ( <11.4) umol/L Thyroxine (T4) (5.5-11.0) ug/dl Total T3 (1.49-2.60) nmol/L TSH 3rd Generation (0.46-4.68) mIU/ML 02/23/17 02/23/17 02/23/17 Range/Units 14:33 14:33 12:37 ESR (0-20) mm/hr PT (9.8-13.1) Seconds INR (0.9-1.2) APTT (25.6-37.1) Seconds pCO2 (35-45) mm/Hg pO2 (80-100) mm/Hg HCO3 (21-28) mmol/L ABG pH (7.35-7.45) ABG Total CO2 (22-28) mmol/L ABG O2 Saturation (95-98) % ABG O2 Content (15-23) ML/dL ABG Base Excess (-2.0-3.0) mmol/L ABG Hemoglobin (11.7-17.4) g/dL ABG Carboxyhemoglobin (0.5-1.5) % POC ABG HHb (Measured) (0.0-5.0) % ABG Methemoglobin (0.0-3.0) % ABG O2 Capacity (16-24) mL/dL Wei Test A-a O2 Difference mm/Hg Hgb O2 Saturation (95.0-98.0) % FiO2 % Hemoglobin A1c 5.7 (4.2-6.5) % CK-MB (Mass) (0.0-3.38) ng/mL Troponin I (0.00-0.120) ng/mL C-React Prot High Sens (1.00-3.00) mg/L Vitamin B12 284 (239-931) pg/mL 25-OH Vitamin D Total (30.0-100.0) NG/ML Homocysteine 13.2 H ( <11.4) umol/L Thyroxine (T4) (5.5-11.0) ug/dl Total T3 (1.49-2.60) nmol/L TSH 3rd Generation (0.46-4.68) mIU/ML 02/23/17 Range/Units 12:37 ESR (0-20) mm/hr PT (9.8-13.1) Seconds INR (0.9-1.2) APTT (25.6-37.1) Seconds pCO2 (35-45) mm/Hg pO2 (80-100) mm/Hg HCO3 (21-28) mmol/L ABG pH (7.35-7.45) ABG Total CO2 (22-28) mmol/L ABG O2 Saturation (95-98) % ABG O2 Content (15-23) ML/dL ABG Base Excess (-2.0-3.0) mmol/L ABG Hemoglobin (11.7-17.4) g/dL ABG Carboxyhemoglobin (0.5-1.5) % POC ABG HHb (Measured) (0.0-5.0) % ABG Methemoglobin (0.0-3.0) % ABG O2 Capacity (16-24) mL/dL Wei Test A-a O2 Difference mm/Hg Hgb O2 Saturation (95.0-98.0) % FiO2 % Hemoglobin A1c (4.2-6.5) % CK-MB (Mass) (0.0-3.38) ng/mL Troponin I (0.00-0.120) ng/mL C-React Prot High Sens (1.00-3.00) mg/L Vitamin B12 (239-931) pg/mL 25-OH Vitamin D Total (30.0-100.0) NG/ML Homocysteine ( <11.4) umol/L Thyroxine (T4) 6.41 (5.5-11.0) ug/dl Total T3 0.770 L (1.49-2.60) nmol/L TSH 3rd Generation 0.10 L (0.46-4.68) mIU/ML Laboratory Results - last 24 hr 02/23/17 02/23/17 02/23/17 12:37 12:37 14:33 ESR PT INR APTT pCO2 pO2 HCO3 ABG pH ABG Total CO2 ABG O2 Saturation ABG O2 Content ABG Base Excess ABG Hemoglobin ABG Carboxyhemoglobin POC ABG HHb (Measured) ABG Methemoglobin ABG O2 Capacity Wei Test A-a O2 Difference Hgb O2 Saturation FiO2 Hemoglobin A1c 5.7 CK-MB (Mass) Troponin I C-React Prot High Sens Vitamin B12 25-OH Vitamin D Total Homocysteine 13.2 H Thyroxine (T4) 6.41 Total T3 0.770 L TSH 3rd Generation 0.10 L 02/23/17 02/23/17 02/23/17 14:33 14:33 14:33 ESR 27 H PT INR APTT pCO2 pO2 HCO3 ABG pH ABG Total CO2 ABG O2 Saturation ABG O2 Content ABG Base Excess ABG Hemoglobin ABG Carboxyhemoglobin POC ABG HHb (Measured) ABG Methemoglobin ABG O2 Capacity Wei Test A-a O2 Difference Hgb O2 Saturation FiO2 Hemoglobin A1c CK-MB (Mass) Troponin I C-React Prot High Sens 10.63 H Vitamin B12 284 25-OH Vitamin D Total Homocysteine Thyroxine (T4) Total T3 TSH 3rd Generation 02/23/17 02/24/17 02/24/17 16:22 10:03 10:50 ESR PT 11.8 INR 1.1 APTT 28.6 pCO2 33 L pO2 82 HCO3 27.8 ABG pH 7.51 H ABG Total CO2 27.3 ABG O2 Saturation 98.9 H ABG O2 Content 21.3 ABG Base Excess 3.8 H ABG Hemoglobin 15.9 ABG Carboxyhemoglobin 2.2 H POC ABG HHb (Measured) 1.1 ABG Methemoglobin 1.3 ABG O2 Capacity 21.5 Wei Test Yes A-a O2 Difference 26.0 Hgb O2 Saturation 95.4 FiO2 21.0 Hemoglobin A1c CK-MB (Mass) Troponin I C-React Prot High Sens Vitamin B12 25-OH Vitamin D Total 17.8 L Homocysteine Thyroxine (T4) Total T3 TSH 3rd Generation 02/24/17 12:09 ESR PT INR APTT pCO2 pO2 HCO3 ABG pH ABG Total CO2 ABG O2 Saturation ABG O2 Content ABG Base Excess ABG Hemoglobin ABG Carboxyhemoglobin POC ABG HHb (Measured) ABG Methemoglobin ABG O2 Capacity Ewi Test A-a O2 Difference Hgb O2 Saturation FiO2 Hemoglobin A1c CK-MB (Mass) 1.42 Troponin I 0.0260 C-React Prot High Sens Vitamin B12 25-OH Vitamin D Total Homocysteine Thyroxine (T4) Total T3 TSH 3rd Generation Radiology Interpretations (Free Text): See Above EKG/Cardiology Interpretations (Free Text): See Above Review of Systems - Review of Systems Systems not reviewed;Unavailable: Altered Mental Status Critical Care Progress Note - Nutrition Nutrition: Nutrition Category Date Time Status Heart Healthy Diet [DIET] Diets 02/22/17 Breakfast Active
[2017-02-24] MEDS ORDERED: Labetalol 5mg/ml (4ml) ONE (14:09)
[2017-02-24] MEDS: Labetalol 5 mg/ml Inj 20ML IVP PRN ×2 (14:12→23:49)
[2017-02-24] MEDS: levoFLOXacin 500 mg in D5W 500 MG/100 ML BAG IVPB SCH (14:17)
[2017-02-24] MEDS ORDERED: Labetalol 5mg/ml (4ml) IVP PRN (14:45)
[2017-02-24] MEDS ORDERED: Labetalol 5mg/ml (4ml) IVP STA (16:10)
[2017-02-24] MEDS ORDERED: EnalaprilAT 1.25 mg/ml Inj IVP ONE (17:13)
[2017-02-24] MEDS ORDERED: EnalaprilAT 1.25 mg/ml Inj ONE (17:16)
[2017-02-24] MEDS ORDERED: Labetalol 5 mg/ml Inj 20ML IVP PRN (23:45)
[2017-02-25] MEDS: Albuterol-Ipratrop 3 mg / 0.5 (3 ml) UD INH SCH ×6 (04:55→23:00)
[2017-02-25 05:44] LABS: HEMATOCRIT 48.3 % (35.0-51.0); MEAN CELL VOLUME 93.4 fl (80.0-94.0); MEAN CORPUSCULAR HEMOGLOBIN 31.4 pg (27.0-31.0); MEAN CORPUSCULAR HGB CONC 33.6 g/dL (33.0-37.0); RED CELL DISTRIBUTION WIDTH 13.3 % (11.5-14.5)
[2017-02-25] MEDS ORDERED: Alum-Mag Hydrox-Simethicone Susp (30 mL) PO ONE (06:41)
[2017-02-25 06:54] LABS: BLOOD UREA NITROGEN 24 mg/dl (9-20); CALCIUM 9.5 mg/dL (8.4-10.2); CARBON DIOXIDE 27 mmol/L (22-30); CHLORIDE 99 mmol/L (98-107); GFR AFRICAN-AMERICAN > 60; GLUCOSE,RANDOM 117 mg/dL (75-110); POTASSIUM 3.8 MMOL/L (3.6-5.0); SODIUM 135 mmol/l (132-148)
--- NOTE | 2017-02-25 07:34 | CP.PCM.PN ---
Subjective - Date & Time of Evaluation Date of Evaluation: 02/25/17 Time of Evaluation: 07:31 - Subjective Subjective: Mr. Ledesma was seen and examined at the bedside in ICU. He is alert with episode of confusion to time (1973), place ( [facility]), and person ( the president is [place]). He is able to answer questions appropriately. He claims of his headache is much better in comparison from yesterday. He further states of the pain 3/10 in the frontal radiating to all areas of his head. He denies any blurred vision, dizziness, lightheadedness, nausea, or vomiting. He remains on 1:1 sitter for patient safety. He was transfer from telemetry area due to his decrease level of consciousness and for close monitoring. He denies any short of breath, chest pain, or any tingling sensation in his body.He is able to follow simple commands. Objective - Vital Signs/Intake and Output Vital Signs (last 24 hours): Temp Pulse Resp BP Pulse Ox 99.3 F 77 26 H 172/114 H 97 02/25/17 00:00 02/25/17 06:00 02/25/17 06:00 02/25/17 06:00 02/25/17 06:00 Intake and Output: 02/25/17 02/25/17 06:59 18:59 Intake Total 200 Output Total 550 Balance -350 - Medications Medications: Current Medications Acetaminophen (Tylenol 325mg Tab) 650 mg PO Q6 PRN PRN Reason: Headache Last Admin: 02/22/17 16:20 Dose: 650 mg Acetylcysteine (Acetylcysteine 20%) 2 ml INH RBID [facility] Last Admin: 02/24/17 07:51 Dose: 2 ml Albuterol/Ipratropium (Duoneb 3 Mg/0.5 Mg (3 Ml) Ud) 3 ml INH RQ4 [facility] Last Admin: 02/25/17 04:55 Dose: 3 ml Amlodipine Besylate (Norvasc) 10 mg PO DAILY [facility] Last Admin: 02/24/17 08:35 Dose: 10 mg Aspirin (Ecotrin) 81 mg PO DAILY [facility] Last Admin: 02/24/17 08:34 Dose: 81 mg Atorvastatin Calcium (Lipitor) 40 mg PO HS [facility] Last Admin: 02/24/17 22:00 Dose: 40 mg Bisoprolol Fumarate (Zebeta) 5 mg PO DAILY [facility] Last Admin: 02/24/17 08:37 Dose: 5 mg Chlordiazepoxide (Librium) 50 mg PO Q6 [facility] Last Admin: 02/25/17 05:00 Dose: 50 mg Clonidine HCl (Catapres) 0.1 mg PO BID [facility] Last Admin: 02/24/17 17:35 Dose: Not Given Clopidogrel Bisulfate (Plavix) 75 mg PO DAILY [facility] Last Admin: 02/24/17 08:39 Dose: 75 mg Divalproex Sodium (Depakote Dr(*Bid*)) 500 mg PO BID [facility] Last Admin: 02/24/17 08:34 Dose: 500 mg Enoxaparin Sodium (Lovenox) 40 mg SC DAILY [facility] PRN Reason: Protocol Last Admin: 02/24/17 08:34 Dose: 40 mg Escitalopram Oxalate (Lexapro) 10 mg PO DAILY [facility] Last Admin: 02/24/17 08:34 Dose: 10 mg Folic Acid (Folic Acid) 1 mg PO DAILY [facility] Last Admin: 02/24/17 08:34 Dose: 1 mg Gabapentin (Neurontin) 300 mg PO TID [facility] Last Admin: 02/24/17 13:26 Dose: Not Given Levofloxacin/Dextrose (Levaquin 500mg) 500 mg in 100 mls @ 100 mls/hr IVPB DAILY [facility] PRN Reason: Protocol Last Admin: 02/24/17 14:17 Dose: 100 mls/hr Ibuprofen (Motrin Tab) 600 mg PO Q8 PRN PRN Reason: Pain, moderate (4-7) Last Admin: 02/24/17 05:58 Dose: 600 mg Labetalol HCl (Trandate) 20 mg IVP Q6H PRN PRN Reason: Systolic Blood Pressure Last Admin: 02/25/17 05:49 Dose: 20 mg Lisinopril (Zestril) 10 mg PO DAILY@1700 [facility] Last Admin: 02/24/17 17:26 Dose: 10 mg Ondansetron HCl (Zofran Inj) 4 mg IVP Q4 PRN PRN Reason: Nausea/Vomiting Last Admin: 02/22/17 18:00 Dose: 4 mg Promethazine HCl (Phenergan Syrup) 12.5 mg PO Q4 [facility] Last Admin: 02/24/17 13:26 Dose: Not Given Risperidone (Risperdal Tab) 0.5 mg PO HS [facility] Last Admin: 02/23/17 22:08 Dose: 0.5 mg Fluticasone/Salmeterol (Advair Diskus 500/50) 1 puff IH BID [facility] Last Admin: 02/24/17 17:24 Dose: 1 puff Thiamine HCl (Vitamin B1 Tab) 100 mg PO DAILY [facility] Last Admin: 02/24/17 08:37 Dose: 100 mg - Labs Labs: 02/25/17 04:40 02/25/17 04:40 PT 11.8 Seconds (9.8-13.1) 02/24/17 10:50 INR 1.1 (0.9-1.2) 02/24/17 10:50 APTT 28.6 Seconds (25.6-37.1) 02/24/17 10:50 - Constitutional Appears: No Acute Distress - Head Exam Head Exam: ATRAUMATIC - Neurological Exam Neurological Exam: Alert, Awake Neuro motor strength exam: Left Upper Extremity: 4, Right Upper Extremity: 4, Left Lower Extremity: 4, Right Lower Extremity: 4 Additional comments: Alert, CN II-XII Intact, Reflexes Normal, Bilateral tremor, high frequency at hand/arm extension and with intention. Bilateral upper extremity fine motor deficits. Finger to nose was wide range and not able to localize with eyes closed Assessment and Plan (1) Cerebral atherosclerosis Assessment & Plan: Case discussed with Dr. Arita, continue the dual anti-platelet and statin. Continue all current medical regimen. Status: Acute (2) Headache Assessment & Plan: Case discussed with Dr. Arita, recommends hepatic profile since patient is receiving depakote to control his mood, and headache. Will include Magnesium oxide 400 mg PO BID. Pending EEG. Status: Acute (3) Drug abuse Assessment & Plan: Case discussed with Dr. Recinos, recommends clonidine 0.1 mg PO BID to assist with his opiate withdrawal and help control his blood pressure. Continue 1:1 sitter for patient safety. Status: Acute
[2017-02-25] MEDS: Fluticasone-Salmeterol 500-50mcg Diskus IH SCH ×2 (08:33→16:53)
[2017-02-25] MEDS: Enoxaparin 40 mg Syringe SC SCH (08:35)
[2017-02-25] MEDS: levoFLOXacin 500 mg in D5W 500 MG/100 ML BAG IVPB SCH (08:38)
--- NOTE | 2017-02-25 08:52 | CP.PCM.PN ---
<Michael Milton - Last Filed: 02/25/17 12:02> Subjective - Date & Time of Evaluation Date of Evaluation: 02/25/17 Time of Evaluation: 07:15 - Subjective Subjective: Patient seen and examined bedside with Dr Martínez in ICU. Patient was transferred yesterday to ICU for AMS. Patient less lethargic today awake, oriented x 2 not time, asking when he can go home. Reports mild frontal headache. Able to move 4 ext. Denies SOB, chest pain, n,v,abd pain. Blood pressure uncontrolled secondary to withdrawal. Objective - Vital Signs/Intake and Output Vital Signs (last 24 hours): Temp Pulse Resp BP Pulse Ox 98 F 109 H 24 156/107 H 97 02/25/17 08:00 02/25/17 08:37 02/25/17 08:00 02/25/17 08:37 02/25/17 08:00 Intake and Output: 02/25/17 02/25/17 06:59 18:59 Intake Total 200 Output Total 550 Balance -350 - Medications Medications: Current Medications Acetaminophen (Tylenol 325mg Tab) 650 mg PO Q6 PRN PRN Reason: Headache Last Admin: 02/22/17 16:20 Dose: 650 mg Acetylcysteine (Acetylcysteine 20%) 2 ml INH RBID [facility] Last Admin: 02/24/17 07:51 Dose: 2 ml Albuterol/Ipratropium (Duoneb 3 Mg/0.5 Mg (3 Ml) Ud) 3 ml INH RQ4 [facility] Last Admin: 02/25/17 07:46 Dose: 3 ml Amlodipine Besylate (Norvasc) 10 mg PO DAILY [facility] Last Admin: 02/25/17 08:37 Dose: 10 mg Aspirin (Ecotrin) 81 mg PO DAILY [facility] Last Admin: 02/25/17 08:36 Dose: 81 mg Atorvastatin Calcium (Lipitor) 40 mg PO HS [facility] Last Admin: 02/24/17 22:00 Dose: 40 mg Bisoprolol Fumarate (Zebeta) 5 mg PO DAILY [facility] Last Admin: 02/25/17 08:38 Dose: 5 mg Chlordiazepoxide (Librium) 50 mg PO Q6 [facility] Last Admin: 02/25/17 05:00 Dose: 50 mg Clonidine HCl (Catapres) 0.1 mg PO BID [facility] Last Admin: 02/25/17 08:34 Dose: 0.1 mg Clopidogrel Bisulfate (Plavix) 75 mg PO DAILY [facility] Last Admin: 02/25/17 08:37 Dose: 75 mg Divalproex Sodium (Depakote Dr(*Bid*)) 500 mg PO BID [facility] Last Admin: 02/24/17 08:34 Dose: 500 mg Enoxaparin Sodium (Lovenox) 40 mg SC DAILY [facility] PRN Reason: Protocol Last Admin: 02/25/17 08:35 Dose: 40 mg Escitalopram Oxalate (Lexapro) 10 mg PO DAILY [facility] Last Admin: 02/24/17 08:34 Dose: 10 mg Folic Acid (Folic Acid) 1 mg PO DAILY [facility] Last Admin: 02/25/17 08:35 Dose: 1 mg Gabapentin (Neurontin) 300 mg PO TID [facility] Last Admin: 02/24/17 13:26 Dose: Not Given Levofloxacin/Dextrose (Levaquin 500mg) 500 mg in 100 mls @ 100 mls/hr IVPB DAILY [facility] PRN Reason: Protocol Last Admin: 02/25/17 08:38 Dose: 100 mls/hr Ibuprofen (Motrin Tab) 600 mg PO Q8 PRN PRN Reason: Pain, moderate (4-7) Last Admin: 02/24/17 05:58 Dose: 600 mg Labetalol HCl (Trandate) 20 mg IVP Q6H PRN PRN Reason: Systolic Blood Pressure Last Admin: 02/25/17 05:49 Dose: 20 mg Lisinopril (Zestril) 10 mg PO DAILY@1700 [facility] Last Admin: 02/24/17 17:26 Dose: 10 mg Magnesium Oxide (Mag-Ox) 400 mg PO BID [facility] Ondansetron HCl (Zofran Inj) 4 mg IVP Q4 PRN PRN Reason: Nausea/Vomiting Last Admin: 02/22/17 18:00 Dose: 4 mg Promethazine HCl (Phenergan Syrup) 12.5 mg PO Q4 [facility] Last Admin: 02/24/17 13:26 Dose: Not Given Risperidone (Risperdal Tab) 0.5 mg PO HS [facility] Last Admin: 02/23/17 22:08 Dose: 0.5 mg Fluticasone/Salmeterol (Advair Diskus 500/50) 1 puff IH BID [facility] Last Admin: 02/25/17 08:33 Dose: 1 puff Thiamine HCl (Vitamin B1 Tab) 100 mg PO DAILY [facility] Last Admin: 02/25/17 08:35 Dose: 100 mg - Labs Labs: 02/25/17 04:40 02/25/17 04:40 PT 11.8 Seconds (9.8-13.1) 02/24/17 10:50 INR 1.1 (0.9-1.2) 02/24/17 10:50 APTT 28.6 Seconds (25.6-37.1) 02/24/17 10:50 - Constitutional Appears: Other (mild lethargic) - Head Exam Head Exam: ATRAUMATIC, NORMOCEPHALIC - Eye Exam Eye Exam: PERRL - Neck Exam Neck Exam: Normal Inspection - Respiratory Exam Respiratory Exam: Clear to Ausculation Bilateral. absent: Rales, Rhonchi, Wheezes - Cardiovascular Exam Cardiovascular Exam: REGULAR RHYTHM, +S1, +S2 - GI/Abdominal Exam GI & Abdominal Exam: Soft, Normal Bowel Sounds. absent: Tenderness - Extremities Exam Extremities Exam: Normal Inspection. absent: Calf Tenderness, Pedal Edema - Back Exam Back Exam: CVA tenderness (L), CVA tenderness (R), NORMAL INSPECTION - Neurological Exam Neuro motor strength exam: Left Upper Extremity: 4, Right Upper Extremity: 4, Left Lower Extremity: 4, Right Lower Extremity: 4 - Skin Skin Exam: Intact, Normal Color Assessment and Plan - Assessment and Plan (Free Text) Plan: Assessment & Plan 1) AMS -improving -secondary to ETOh withdrawal, and multi drugs medications - no psych symptoms now -Psyq consult appreciated. Hold risperidone,lexapro, depakote, phenergan -CT Head small left lacunar infart. no intracraneal hemorrhage (2) COPD exacerbation Assessment and Plan: -improving Xr No infiltrates Pulmonology consult appreciated -hold steroids Status: Acute (3) Hypertension Assessment and Plan: -uncontrolled secondary to ETOH, opiodids withdrawal -bisoprolol,clonidine -Norvasc Status: Acute (4) ETOH withdrawal Assessment and Plan: -librium q6h - Mg sulfate Status: Acute (5) Headache -secondary to ETOh withdrawal,uncontrolled HTN, cerebral atherosclerosis - Neuro consult appreciated -Aspirin, plavix -MRI brain neg (6) DVT prophylaxis Assessment and Plan: Lovenox 40 mg sc Status: Acute <Martínez,Yury K - Last Filed: 03/04/17 12:33> Objective - Vital Signs/Intake and Output Vital Signs (last 24 hours): Temp Pulse Resp BP Pulse Ox 98.3 F 82 16 113/73 98 03/03/17 20:18 03/03/17 20:18 03/03/17 20:18 03/03/17 20:18 03/03/17 20:18 - Labs Labs: 03/01/17 04:20 03/01/17 04:20 PT 11.8 Seconds (9.8-13.1) 02/24/17 10:50 INR 1.1 (0.9-1.2) 02/24/17 10:50 APTT 28.6 Seconds (25.6-37.1) 02/24/17 10:50 Assessment and Plan - Assessment and Plan (Free Text) Assessment: Patient was personally seen and examined by me in rounds with residents. Available labs and diagnostic data reviewed. Case, patient's condition and management plan discussed with residents in rounds. Agree with resident's progress note. Plan: As ordered.
[2017-02-25] MEDS ORDERED: MethylPREDNISolone 40 mg Vial IV SCH (09:00)
[2017-02-25 09:05] LABS: ALB/GLOB RATIO 1.2 (1.0-2.1); TOTAL PROTEIN 7.9 G/DL (6.3-8.2)
--- NOTE | 2017-02-25 09:58 | CP.CCUPN ---
CCU Subjective - Physician Review Events Since Last Encounter (Free Text): 02/25/17 The patient was Seen/interviewed and examined by me at the bedside, More awake today, mild tremulous Off all sedative, narcotics except for Librium. Clinically improving Awake, comfortable, NAD Denies any chest pain, SOB or Palpitations Afebrile, NSR on the monitor Last 24H I&O 200/550 CCU Objective - Vital Signs / Intake & Output Vital Signs (Last 4 hours): Vital Signs Temp Pulse Resp BP Pulse Ox 02/25/17 08:37 109 H 156/107 H 02/25/17 08:34 106 H 156/107 H 02/25/17 08:00 98 F 99 H 24 152/99 H 97 02/25/17 06:00 77 26 H 172/114 H 97 Intake and Output (Last 8hrs): Intake & Output 02/24/17 02/25/17 02/25/17 22:59 06:59 14:59 Intake Total 150 50 Output Total 200 350 Balance -50 -300 Intake: IV 0 Oral 150 50 Output: Urine 200 350 Urine, Voided 200 350 Other: # Voids Urine, Voided 1 1 - Physical Exam Head: Positive for: Normocephalic Pupils: Positive for: PERRL, Sluggish Extroacular Muscles: Positive for: EOMI Conjunctiva: Positive for: Normal. Negative for: Icteric Mouth: Positive for: Dry Neck: Positive for: Normal Range of Motion. Negative for: Meningeal Signs, JVD Respiratory/Chest: Positive for: Clear to Auscultation. Negative for: Accessory Muscle Use, Wheezes Cardiovascular: Positive for: Regular Rate and Rhythm, Normal S1, S2. Negative for: Murmurs, Rub Abdomen: Positive for: Normal Bowel Sounds. Negative for: Tenderness, Distention, Mass/Organomegaly Lower Extremity: Positive for: Normal Inspection, NORMAL PULSES. Negative for: Edema, CALF TENDERNESS, Cyanosis Neurological: Positive for: Motor Func Grossly Intact, Normal Cerebellar Funct ( unable to test). Negative for: GCS=15 (GCS= 8 ([id number])) Skin: Positive for: Warm, Dry. Negative for: Rashes Psychiatric: Positive for: Lethargic. Negative for: Alert, Oriented x 3 - Medications Active Medications: Active Medications Generic Name Dose Route Start Last Admin Trade Name Freq PRN Reason Stop Dose Admin Acetaminophen 650 mg 02/22/17 16:03 02/22/17 16:20 Tylenol 325mg Tab PO 650 mg Q6 PRN Administration Headache Acetylcysteine 2 ml 02/22/17 20:00 02/24/17 07:51 Acetylcysteine 20% INH 2 ml RBID [facility] Administration Albuterol/Ipratropium 3 ml 02/22/17 08:51 02/25/17 07:46 Duoneb 3 Mg/0.5 Mg (3 Ml) Ud INH 3 ml RQ4 [facility] Administration Amlodipine Besylate 10 mg 02/22/17 09:15 02/25/17 08:37 Norvasc PO 10 mg DAILY [facility] Administration Aspirin 81 mg 02/22/17 09:15 02/25/17 08:36 Ecotrin PO 81 mg DAILY [facility] Administration Atorvastatin Calcium 40 mg 02/24/17 22:00 02/24/17 22:00 Lipitor PO 40 mg HS [facility] Administration Bisoprolol Fumarate 5 mg 02/24/17 07:30 02/25/17 08:38 Zebeta PO 5 mg DAILY [facility] Administration Chlordiazepoxide 50 mg 02/24/17 13:21 02/25/17 05:00 Librium PO 50 mg Q6 [facility] Administration Clonidine HCl 0.1 mg 02/24/17 17:00 02/25/17 08:34 Catapres PO 0.1 mg BID [facility] Administration Clopidogrel Bisulfate 75 mg 02/24/17 09:00 02/25/17 08:37 Plavix PO 75 mg DAILY [facility] Administration Divalproex Sodium 500 mg 02/23/17 17:00 02/24/17 08:34 Jyoti Newman(*Bid*) PO 500 mg BID [facility] Administration Enoxaparin Sodium 40 mg 02/22/17 09:15 02/25/17 08:35 Lovenox SC 40 mg DAILY [facility] Administration Protocol Escitalopram Oxalate 10 mg 02/22/17 12:30 02/24/17 08:34 Lexapro PO 10 mg DAILY [facility] Administration Folic Acid 1 mg 02/22/17 09:15 02/25/17 08:35 Folic Acid PO 1 mg DAILY [facility] Administration Gabapentin 300 mg 02/23/17 13:00 02/24/17 13:26 Neurontin PO Not Given TID [facility] Levofloxacin/Dextrose 500 mg in 100 mls @ 100 mls/hr 02/22/17 09:30 02/25/17 08:38 Levaquin 500mg IVPB 100 mls/hr DAILY [facility] Administration Protocol Ibuprofen 600 mg 02/22/17 20:37 02/24/17 05:58 Motrin Tab PO 600 mg Q8 PRN Administration Pain, moderate (4-7) Labetalol HCl 20 mg 02/24/17 23:45 02/25/17 05:49 Trandate IVP 20 mg Q6H PRN Administration Systolic Blood Pressure Lisinopril 10 mg 02/24/17 17:00 02/24/17 17:26 Zestril PO 10 mg DAILY@1700 [facility] Administration Magnesium Oxide 400 mg 02/25/17 09:00 Mag-Ox PO BID [facility] Ondansetron HCl 4 mg 02/22/17 17:49 02/22/17 18:00 Zofran Inj IVP 4 mg Q4 PRN Administration Nausea/Vomiting Promethazine HCl 12.5 mg 02/22/17 13:00 02/24/17 13:26 Phenergan Syrup PO Not Given Q4 [facility] Risperidone 0.5 mg 02/22/17 22:00 02/23/17 22:08 Risperdal Tab PO 0.5 mg HS [facility] Administration Fluticasone/Salmeterol 1 puff 02/22/17 09:15 02/25/17 08:33 Advair Diskus 500/50 IH 1 puff BID [facility] Administration Thiamine HCl 100 mg 02/22/17 09:15 02/25/17 08:35 Vitamin B1 Tab PO 100 mg DAILY [facility] Administration - Patient Studies Lab Studies: Microbiology Studies 02/22/17 04:00 Blood Culture - Preliminary Blood-Venous NO GROWTH AFTER 3 DAYS 02/22/17 04:51 Blood Culture - Preliminary Blood-Venous NO GROWTH AFTER 3 DAYS Lab Studies 02/25/17 02/25/17 02/25/17 Range/Units 08:47 04:40 04:40 WBC 10.0 D (4.8-10.8) K/uL RBC 5.17 (4.40-5.90) Mil/uL Hgb 16.2 D (12.0-18.0) g/dL Hct 48.3 (35.0-51.0) % MCV 93.4 (80.0-94.0) fl MCH 31.4 H (27.0-31.0) pg MCHC 33.6 (33.0-37.0) g/dL RDW 13.3 (11.5-14.5) % Plt Count 188 (130-400) K/uL PT (9.8-13.1) Seconds INR (0.9-1.2) APTT (25.6-37.1) Seconds pCO2 (35-45) mm/Hg pO2 (80-100) mm/Hg HCO3 (21-28) mmol/L ABG pH (7.35-7.45) ABG Total CO2 (22-28) mmol/L ABG O2 Saturation (95-98) % ABG O2 Content (15-23) ML/dL ABG Base Excess (-2.0-3.0) mmol/L ABG Hemoglobin (11.7-17.4) g/dL ABG Carboxyhemoglobin (0.5-1.5) % POC ABG HHb (Measured) (0.0-5.0) % ABG Methemoglobin (0.0-3.0) % ABG O2 Capacity (16-24) mL/dL Wei Test A-a O2 Difference mm/Hg Hgb O2 Saturation (95.0-98.0) % FiO2 % Sodium 135 (132-148) mmol/l Potassium 3.8 (3.6-5.0) MMOL/L Chloride 99 (98-107) mmol/L Carbon Dioxide 27 (22-30) mmol/L Anion Gap 13 (10-20) BUN 24 H (9-20) mg/dl Creatinine 1.0 (0.8-1.5) mg/dl Est GFR ( Amer) > 60 Est GFR (Non-Af Amer) > 60 Random Glucose 117 H (75-110) mg/dL Calcium 9.5 (8.4-10.2) mg/dL Total Bilirubin 1.0 (0.2-1.3) mg/dl Direct Bilirubin 0.4 (0.0-0.4) mg/ml AST 40 (17-59) U/L ALT 57 (21-72) U/L Alkaline Phosphatase 72 (38-126) U/L Total Creatine Kinase (55-170) U/L CK-MB (Mass) (0.0-3.38) ng/mL Troponin I (0.00-0.120) ng/mL Total Protein 7.9 (6.3-8.2) G/DL Albumin 4.2 (3.5-5.0) g/dL Globulin 3.7 (2.2-3.9) gm/dL Albumin/Globulin Ratio 1.2 (1.0-2.1) 02/24/17 02/24/17 02/24/17 Range/Units 12:09 10:50 10:03 WBC (4.8-10.8) K/uL RBC (4.40-5.90) Mil/uL Hgb (12.0-18.0) g/dL Hct (35.0-51.0) % MCV (80.0-94.0) fl MCH (27.0-31.0) pg MCHC (33.0-37.0) g/dL RDW (11.5-14.5) % Plt Count (130-400) K/uL PT 11.8 (9.8-13.1) Seconds INR 1.1 (0.9-1.2) APTT 28.6 (25.6-37.1) Seconds pCO2 33 L (35-45) mm/Hg pO2 82 (80-100) mm/Hg HCO3 27.8 (21-28) mmol/L ABG pH 7.51 H (7.35-7.45) ABG Total CO2 27.3 (22-28) mmol/L ABG O2 Saturation 98.9 H (95-98) % ABG O2 Content 21.3 (15-23) ML/dL ABG Base Excess 3.8 H (-2.0-3.0) mmol/L ABG Hemoglobin 15.9 (11.7-17.4) g/dL ABG Carboxyhemoglobin 2.2 H (0.5-1.5) % POC ABG HHb (Measured) 1.1 (0.0-5.0) % ABG Methemoglobin 1.3 (0.0-3.0) % ABG O2 Capacity 21.5 (16-24) mL/dL Wei Test Yes A-a O2 Difference 26.0 mm/Hg Hgb O2 Saturation 95.4 (95.0-98.0) % FiO2 21.0 % Sodium (132-148) mmol/l Potassium (3.6-5.0) MMOL/L Chloride (98-107) mmol/L Carbon Dioxide (22-30) mmol/L Anion Gap (10-20) BUN (9-20) mg/dl Creatinine (0.8-1.5) mg/dl Est GFR ( Amer) Est GFR (Non-Af Amer) Random Glucose (75-110) mg/dL Calcium (8.4-10.2) mg/dL Total Bilirubin (0.2-1.3) mg/dl Direct Bilirubin (0.0-0.4) mg/ml AST (17-59) U/L ALT (21-72) U/L Alkaline Phosphatase (38-126) U/L Total Creatine Kinase 76 (55-170) U/L CK-MB (Mass) 1.42 (0.0-3.38) ng/mL Troponin I 0.0260 (0.00-0.120) ng/mL Total Protein (6.3-8.2) G/DL Albumin (3.5-5.0) g/dL Globulin (2.2-3.9) gm/dL Albumin/Globulin Ratio (1.0-2.1) Laboratory Results - last 24 hr 02/24/17 02/24/17 02/24/17 10:03 10:50 12:09 WBC RBC Hgb Hct MCV MCH MCHC RDW Plt Count PT 11.8 INR 1.1 APTT 28.6 pCO2 33 L pO2 82 HCO3 27.8 ABG pH 7.51 H ABG Total CO2 27.3 ABG O2 Saturation 98.9 H ABG O2 Content 21.3 ABG Base Excess 3.8 H ABG Hemoglobin 15.9 ABG Carboxyhemoglobin 2.2 H POC ABG HHb (Measured) 1.1 ABG Methemoglobin 1.3 ABG O2 Capacity 21.5 Wei Test Yes A-a O2 Difference 26.0 Hgb O2 Saturation 95.4 FiO2 21.0 Sodium Potassium Chloride Carbon Dioxide Anion Gap BUN Creatinine Est GFR ( Amer) Est GFR (Non-Af Amer) Random Glucose Calcium Total Bilirubin Direct Bilirubin AST ALT Alkaline Phosphatase Total Creatine Kinase 76 CK-MB (Mass) 1.42 Troponin I 0.0260 Total Protein Albumin Globulin Albumin/Globulin Ratio 02/25/17 02/25/17 02/25/17 04:40 04:40 08:47 WBC 10.0 D RBC 5.17 Hgb 16.2 D Hct 48.3 MCV 93.4 MCH 31.4 H MCHC 33.6 RDW 13.3 Plt Count 188 PT INR APTT pCO2 pO2 HCO3 ABG pH ABG Total CO2 ABG O2 Saturation ABG O2 Content ABG Base Excess ABG Hemoglobin ABG Carboxyhemoglobin POC ABG HHb (Measured) ABG Methemoglobin ABG O2 Capacity Wei Test A-a O2 Difference Hgb O2 Saturation FiO2 Sodium 135 Potassium 3.8 Chloride 99 Carbon Dioxide 27 Anion Gap 13 BUN 24 H Creatinine 1.0 Est GFR ( Amer) > 60 Est GFR (Non-Af Amer) > 60 Random Glucose 117 H Calcium 9.5 Total Bilirubin 1.0 Direct Bilirubin 0.4 AST 40 ALT 57 Alkaline Phosphatase 72 Total Creatine Kinase CK-MB (Mass) Troponin I Total Protein 7.9 Albumin 4.2 Globulin 3.7 Albumin/Globulin Ratio 1.2 Critical Care Progress Note - Nutrition Nutrition: Nutrition Category Date Time Status Heart Healthy Diet [DIET] Diets 02/22/17 Breakfast Active Assessment/Plan (1) Alcohol withdrawal delirium Current Visit: Yes Status: Acute (2) Acute tracheobronchitis Current Visit: Yes Status: Acute (3) Uncontrolled hypertension Current Visit: Yes Status: Acute (4) Altered mental status Current Visit: Yes Status: Acute (5) Chronic obstructive lung disease Current Visit: No Status: Acute - Assessment and Plan (Free Text) Assessment: Alcohol intoxication/withdrawal with DTs Acute Tracheobronchiti Uncontrolled HTN - Admited to ICU for close observation and serial neuro examination - BP control - CIWA score daily - close monitoring of respiratory status - intravenous thiamine and Folate - Banana Bag - electorlytic replacemnt - fall/aspiration/seizure precautions - titrated to Librium to 25mg po Q 8H today. -IV PRN Ativan IV Levofloxacin No need for IV steroids Combination albuterol/Atrovent nebs q4h Advair Diskus 500/50 1 puff IH BID
[2017-02-25] MEDS: Magnesium Oxide 400 mg Tab UD PO SCH ×2 (10:53→16:54)
--- NOTE | 2017-02-25 12:25 | CP.PCM.PN ---
Subjective - Date & Time of Evaluation Date of Evaluation: 02/25/17 Time of Evaluation: 12:26 - Subjective Subjective: PT WAS TRANSFERRED TO ICU BECAUSE OF DTS STILL VERY DROWSY INFO FROM DAUGHTER AND EX- INDICATE THAT PT IS A CHRONIC ALCOHOLIC Objective - Vital Signs/Intake and Output Vital Signs (last 24 hours): Temp Pulse Resp BP Pulse Ox 98.6 F 84 25 H 119/76 97 02/25/17 12:00 02/25/17 12:00 02/25/17 12:00 02/25/17 12:00 02/25/17 12:00 Intake and Output: 02/25/17 02/25/17 06:59 18:59 Intake Total 200 350 Output Total 550 400 Balance -350 -50 - Medications Medications: Current Medications Acetaminophen (Tylenol 325mg Tab) 650 mg PO Q6 PRN PRN Reason: Headache Last Admin: 02/22/17 16:20 Dose: 650 mg Acetylcysteine (Acetylcysteine 20%) 2 ml INH RBID [facility] Last Admin: 02/24/17 07:51 Dose: 2 ml Albuterol/Ipratropium (Duoneb 3 Mg/0.5 Mg (3 Ml) Ud) 3 ml INH RQ4 [facility] Last Admin: 02/25/17 11:35 Dose: 3 ml Amlodipine Besylate (Norvasc) 10 mg PO DAILY [facility] Last Admin: 02/25/17 08:37 Dose: 10 mg Aspirin (Ecotrin) 81 mg PO DAILY [facility] Last Admin: 02/25/17 08:36 Dose: 81 mg Atorvastatin Calcium (Lipitor) 40 mg PO HS [facility] Last Admin: 02/24/17 22:00 Dose: 40 mg Bisoprolol Fumarate (Zebeta) 5 mg PO DAILY [facility] Last Admin: 02/25/17 08:38 Dose: 5 mg Chlordiazepoxide (Librium) 50 mg PO Q6 [facility] Last Admin: 02/25/17 10:42 Dose: 50 mg Clonidine HCl (Catapres) 0.1 mg PO BID [facility] Last Admin: 02/25/17 08:34 Dose: 0.1 mg Clopidogrel Bisulfate (Plavix) 75 mg PO DAILY [facility] Last Admin: 02/25/17 08:37 Dose: 75 mg Divalproex Sodium (Depakote Dr(*Bid*)) 500 mg PO BID [facility] Last Admin: 02/24/17 08:34 Dose: 500 mg Enoxaparin Sodium (Lovenox) 40 mg SC DAILY [facility] PRN Reason: Protocol Last Admin: 02/25/17 08:35 Dose: 40 mg Escitalopram Oxalate (Lexapro) 10 mg PO DAILY [facility] Last Admin: 02/24/17 08:34 Dose: 10 mg Folic Acid (Folic Acid) 1 mg PO DAILY [facility] Last Admin: 02/25/17 08:35 Dose: 1 mg Gabapentin (Neurontin) 300 mg PO TID [facility] Last Admin: 02/24/17 13:26 Dose: Not Given Levofloxacin/Dextrose (Levaquin 500mg) 500 mg in 100 mls @ 100 mls/hr IVPB DAILY [facility] PRN Reason: Protocol Last Admin: 02/25/17 08:38 Dose: 100 mls/hr Ibuprofen (Motrin Tab) 600 mg PO Q8 PRN PRN Reason: Pain, moderate (4-7) Last Admin: 02/24/17 05:58 Dose: 600 mg Labetalol HCl (Trandate) 20 mg IVP Q6H PRN PRN Reason: Systolic Blood Pressure Last Admin: 02/25/17 05:49 Dose: 20 mg Lisinopril (Zestril) 10 mg PO DAILY@1700 [facility] Last Admin: 02/24/17 17:26 Dose: 10 mg Magnesium Oxide (Mag-Ox) 400 mg PO BID [facility] Last Admin: 02/25/17 10:53 Dose: 400 mg Ondansetron HCl (Zofran Inj) 4 mg IVP Q4 PRN PRN Reason: Nausea/Vomiting Last Admin: 02/22/17 18:00 Dose: 4 mg Promethazine HCl (Phenergan Syrup) 12.5 mg PO Q4 [facility] Last Admin: 02/24/17 13:26 Dose: Not Given Risperidone (Risperdal Tab) 0.5 mg PO HS [facility] Last Admin: 02/23/17 22:08 Dose: 0.5 mg Fluticasone/Salmeterol (Advair Diskus 500/50) 1 puff IH BID [facility] Last Admin: 02/25/17 08:33 Dose: 1 puff Thiamine HCl (Vitamin B1 Tab) 100 mg PO DAILY [facility] Last Admin: 02/25/17 08:35 Dose: 100 mg - Labs Labs: 02/25/17 04:40 02/25/17 04:40 PT 11.8 Seconds (9.8-13.1) 02/24/17 10:50 INR 1.1 (0.9-1.2) 02/24/17 10:50 APTT 28.6 Seconds (25.6-37.1) 02/24/17 10:50 - Constitutional Appears: Chronically Ill - Head Exam Head Exam: ATRAUMATIC, NORMAL INSPECTION, NORMOCEPHALIC - Eye Exam Eye Exam: EOMI, Normal appearance, PERRL Pupil Exam: NORMAL ACCOMODATION, PERRL - ENT Exam ENT Exam: Mucous Membranes Moist, Normal Exam - Neck Exam Neck Exam: Full ROM, Normal Inspection. absent: Lymphadenopathy - Respiratory Exam Respiratory Exam: Decreased Breath Sounds, Rales, Wheezes, NORMAL BREATHING PATTERN - Cardiovascular Exam Cardiovascular Exam: REGULAR RHYTHM, +S1, +S2. absent: Murmur - GI/Abdominal Exam GI & Abdominal Exam: Soft, Normal Bowel Sounds. absent: Tenderness - Rectal Exam Rectal Exam: NORMAL INSPECTION - Extremities Exam Extremities Exam: Full ROM, Normal Capillary Refill, Normal Inspection. absent : Joint Swelling, Pedal Edema - Back Exam Back Exam: NORMAL INSPECTION Assessment and Plan - Assessment and Plan (Free Text) Assessment: COPD EXAC DTS Plan: CONTINUE PRESENT RX WILL CONTINUE TO FOLLOW
--- NOTE | 2017-02-25 15:56 | CARD ---
APPROVED REPORT EKG Measurement Heart [id number] <Conclusion> Normal sinus rhythm Normal ECG
[2017-02-26] MEDS: Albuterol-Ipratrop 3 mg / 0.5 (3 ml) UD INH SCH ×5 (04:08→19:32)
[2017-02-26 06:41] LABS: HEMATOCRIT 50.7 % (35.0-51.0); MEAN CELL VOLUME 94.6 fl (80.0-94.0); MEAN CORPUSCULAR HEMOGLOBIN 31.1 pg (27.0-31.0); MEAN CORPUSCULAR HGB CONC 32.9 g/dL (33.0-37.0); RED CELL DISTRIBUTION WIDTH 13.2 % (11.5-14.5); WHITE BLOOD COUNT 9.4 K/uL (4.8-10.8)
[2017-02-26 07:05] LABS: BLOOD UREA NITROGEN 31 mg/dl (9-20); CALCIUM 9.1 mg/dL (8.4-10.2); CARBON DIOXIDE 25 mmol/L (22-30); CHLORIDE 102 mmol/L (98-107); GFR AFRICAN-AMERICAN > 60; GLUCOSE,RANDOM 124 mg/dL (75-110); POTASSIUM 3.7 MMOL/L (3.6-5.0); SODIUM 136 mmol/l (132-148)
[2017-02-26] MEDS: levoFLOXacin 500 mg in D5W 500 MG/100 ML BAG IVPB SCH (08:46)
[2017-02-26] MEDS: Magnesium Oxide 400 mg Tab UD PO SCH ×2 (08:46→16:36)
[2017-02-26] MEDS: Enoxaparin 40 mg Syringe SC SCH (08:47)
--- NOTE | 2017-02-26 10:19 | PN ---
DATE: 02/26/2017 SUBJECTIVE: The patient is seen and examined. Interim events noted. Consults noted and appreciated. Pulmonary and Intensive intervention noted and appreciated. Patient remains in Intensive Care Unit with one-to-one observation for safety. Patient feels okay. Little bit more oriented. No chest pain. No shortness of breath. Headache improved remarkably. PHYSICAL EXAMINATION: GENERAL: Patient is no acute distress. VITAL SIGNS: Stable. HEART: S1 and S2 normal and regular. LUNGS: Good bilateral air exchange. ABDOMEN: Soft, nontender. EXTREMITIES: No edema. No calf swelling. No tenderness. No acute ischemia. CENTRAL NERVOUS EXAMINATION: Patient's mentation has improved. There is no acute focal deficits. DIAGNOSTIC DATA: Available diagnostic data reviewed. Telemetry monitoring does not show significant arrhythmias. ASSESSMENT AND PLAN: Overall, the patient's general medical condition is stable and improving. Plan as ordered. Yury Martínez MD
--- NOTE | 2017-02-26 10:37 | CP.CCUPN ---
CCU Subjective - Physician Review Subjective (Free Text): 02/26/17 10:32 Patient ate breakfast and now sleeping comfortably. Patient with h/o ETOH use and h/o COPD. Patient has no specific complaints. Patient verbalized "when am i getting out of here" CCU Objective - Vital Signs / Intake & Output Vital Signs (Last 4 hours): Vital Signs Temp Pulse Resp BP Pulse Ox 02/26/17 08:00 97.6 F 86 24 109/79 98 Intake and Output (Last 8hrs): Intake & Output 02/25/17 02/26/17 02/26/17 22:59 06:59 14:59 Intake Total 490 0 Output Total 400 300 Balance 90 -300 Intake: IV 0 0 Oral 490 Output: Urine 400 300 Urine, Voided 400 300 Other: # Voids Urine, Voided 1 - Physical Exam Head: Positive for: Normocephalic Pupils: Positive for: PERRL, Sluggish Extroacular Muscles: Positive for: EOMI Conjunctiva: Positive for: Normal. Negative for: Icteric Mouth: Positive for: Dry Neck: Positive for: Normal Range of Motion. Negative for: Meningeal Signs, JVD Respiratory/Chest: Positive for: Clear to Auscultation. Negative for: Accessory Muscle Use, Wheezes Cardiovascular: Positive for: Regular Rate and Rhythm, Normal S1, S2. Negative for: Murmurs, Rub Abdomen: Positive for: Normal Bowel Sounds. Negative for: Tenderness, Distention, Mass/Organomegaly Lower Extremity: Positive for: Normal Inspection, NORMAL PULSES. Negative for: Edema, CALF TENDERNESS, Cyanosis Neurological: Positive for: GCS=15, Motor Func Grossly Intact, Normal Cerebellar Funct (unable to test) Skin: Positive for: Warm, Dry. Negative for: Rashes Psychiatric: Positive for: Alert, Oriented x 3, Normal Insight, Normal Concentration, Lethargic - Medications Active Medications: Active Medications Generic Name Dose Route Start Last Admin Trade Name Freq PRN Reason Stop Dose Admin Acetaminophen 650 mg 02/22/17 16:03 02/22/17 16:20 Tylenol 325mg Tab PO 650 mg Q6 PRN Administration Headache Albuterol/Ipratropium 3 ml 02/22/17 08:51 02/26/17 07:51 Duoneb 3 Mg/0.5 Mg (3 Ml) Ud INH 3 ml RQ4 YE[facility]O Administration Amlodipine Besylate 10 mg 02/22/17 09:15 02/25/17 08:37 Norvasc PO 10 mg DAILY YE[facility]O Administration Aspirin 81 mg 02/22/17 09:15 02/26/17 08:47 Ecotrin PO 81 mg DAILY [facility] Administration Atorvastatin Calcium 40 mg 02/24/17 22:00 02/25/17 21:17 Lipitor PO 40 mg HS YEYO Administration Bisoprolol Fumarate 5 mg 02/24/17 07:30 02/25/17 08:38 Zebeta PO 5 mg DAILY [facility] Administration Chlordiazepoxide 25 mg 02/25/17 17:26 02/26/17 04:00 Librium PO Not Given Q6 YEYO Clonidine HCl 0.1 mg 02/24/17 17:00 02/25/17 16:53 Catapres PO 0.1 mg BID YE[facility]O Administration Clopidogrel Bisulfate 75 mg 02/24/17 09:00 02/26/17 08:47 Plavix PO 75 mg DAILY [facility] Administration Divalproex Sodium 500 mg 02/23/17 17:00 02/24/17 08:[address](*Bid*) PO 500 mg BID [facility] Administration Enoxaparin Sodium 40 mg 02/22/17 09:15 02/26/17 08:47 Lovenox SC 40 mg DAILY [facility] Administration Protocol Escitalopram Oxalate 10 mg 02/22/17 12:30 02/24/17 08:34 Lexapro PO 10 mg DAILY [facility] Administration Folic Acid 1 mg 02/22/17 09:15 02/26/17 08:46 Folic Acid PO 1 mg DAILY [facility] Administration Gabapentin 300 mg 02/23/17 13:00 02/24/17 13:26 Neurontin PO Not Given TID [facility] Levofloxacin/Dextrose 500 mg in 100 mls @ 100 mls/hr 02/22/17 09:30 02/26/17 08:46 Levaquin 500mg IVPB 100 mls/hr DAILY [facility] Administration Protocol Ibuprofen 600 mg 02/22/17 20:37 02/24/17 05:58 Motrin Tab PO 600 mg Q8 PRN Administration Pain, moderate (4-7) Labetalol HCl 20 mg 02/24/17 23:45 02/25/17 05:49 Trandate IVP 20 mg Q6H PRN Administration Systolic Blood Pressure Lisinopril 10 mg 02/24/17 17:00 02/25/17 16:54 Zestril PO 10 mg DAILY@1700 [facility] Administration Magnesium Oxide 400 mg 02/25/17 09:00 02/26/17 08:46 Mag-Ox PO 400 mg BID [facility] Administration Ondansetron HCl 4 mg 02/22/17 17:49 02/22/17 18:00 Zofran Inj IVP 4 mg Q4 PRN Administration Nausea/Vomiting Promethazine HCl 12.5 mg 02/22/17 13:00 02/24/17 13:26 Phenergan Syrup PO Not Given Q4 [facility] Risperidone 0.5 mg 02/22/17 22:00 02/23/17 22:08 Risperdal Tab PO 0.5 mg HS [facility] Administration Fluticasone/Salmeterol 1 puff 02/22/17 09:15 02/25/17 16:53 Advair Diskus 500/50 IH 1 puff BID [facility] Administration Thiamine HCl 100 mg 02/22/17 09:15 02/26/17 08:46 Vitamin B1 Tab PO 100 mg DAILY [facility] Administration - Patient Studies Lab Studies: Microbiology Studies 02/22/17 04:00 Blood Culture - Preliminary Blood-Venous NO GROWTH AFTER 4 DAYS 02/22/17 04:51 Blood Culture - Preliminary Blood-Venous NO GROWTH AFTER 4 DAYS 02/24/17 18:38 MRSA Culture (Admit) - Final Naris MRSA NOT DETECTED Lab Studies 02/26/17 02/26/17 Range/Units 05:30 05:30 WBC 9.4 (4.8-10.8) K/uL RBC 5.36 (4.40-5.90) Mil/uL Hgb 16.7 (12.0-18.0) g/dL Hct 50.7 (35.0-51.0) % MCV 94.6 H (80.0-94.0) fl MCH 31.1 H (27.0-31.0) pg MCHC 32.9 L (33.0-37.0) g/dL RDW 13.2 (11.5-14.5) % Plt Count 187 (130-400) K/uL Sodium 136 (132-148) mmol/l Potassium 3.7 (3.6-5.0) MMOL/L Chloride 102 (98-107) mmol/L Carbon Dioxide 25 (22-30) mmol/L Anion Gap 13 (10-20) BUN 31 H (9-20) mg/dl Creatinine 1.0 (0.8-1.5) mg/dl Est GFR ( Amer) > 60 Est GFR (Non-Af Amer) > 60 Random Glucose 124 H (75-110) mg/dL Calcium 9.1 (8.4-10.2) mg/dL Laboratory Results - last 24 hr 02/26/17 02/26/17 05:30 05:30 WBC 9.4 RBC 5.36 Hgb 16.7 Hct 50.7 MCV 94.6 H MCH 31.1 H MCHC 32.9 L RDW 13.2 Plt Count 187 Sodium 136 Potassium 3.7 Chloride 102 Carbon Dioxide 25 Anion Gap 13 BUN 31 H Creatinine 1.0 Est GFR ( Amer) > 60 Est GFR (Non-Af Amer) > 60 Random Glucose 124 H Calcium 9.1 Critical Care Progress Note - Nutrition Nutrition: Nutrition Category Date Time Status Heart Healthy Diet [DIET] Diets 02/22/17 Breakfast Active Assessment/Plan - Assessment and Plan (Free Text) Plan: Alcohol intoxication/withdrawal resolved Acute Tracheobronchiti: no cough, no comoplaints HTN : controlled -d/c 1:1 observation -switch all meds to oral - check and replace electorlytes - fall/aspiration/seizure precautions -continue current dose of librium -IV PRN Ativan -COPD: no acute symptoms, breathing comfortably Combination albuterol/Atrovent nebs q4h Advair Diskus 500/50 1 puff IH BID -continue all other current management -Patient remains hemodynamically stable.
[2017-02-26] MEDS: Fluticasone-Salmeterol 500-50mcg Diskus IH SCH ×2 (11:30→16:38)
--- NOTE | 2017-02-26 13:24 | CP.PCM.PN ---
Subjective - Date & Time of Evaluation Date of Evaluation: 02/26/17 Time of Evaluation: 13:24 - Subjective Subjective: still confused Objective - Vital Signs/Intake and Output Vital Signs (last 24 hours): Temp Pulse Resp BP Pulse Ox 98.5 F 93 H 19 106/83 95 02/26/17 12:00 02/26/17 12:00 02/26/17 12:00 02/26/17 12:00 02/26/17 12:00 Intake and Output: 02/26/17 02/26/17 06:59 18:59 Intake Total 240 820 Output Total 300 1 Balance -60 819 - Medications Medications: Current Medications Acetaminophen (Tylenol 325mg Tab) 650 mg PO Q6 PRN PRN Reason: Headache Last Admin: 02/22/17 16:20 Dose: 650 mg Albuterol/Ipratropium (Duoneb 3 Mg/0.5 Mg (3 Ml) Ud) 3 ml INH RQ4 [facility] Last Admin: 02/26/17 11:03 Dose: 3 ml Amlodipine Besylate (Norvasc) 10 mg PO DAILY [facility] Last Admin: 02/25/17 08:37 Dose: 10 mg Aspirin (Ecotrin) 81 mg PO DAILY [facility] Last Admin: 02/26/17 08:47 Dose: 81 mg Atorvastatin Calcium (Lipitor) 40 mg PO HS [facility] Last Admin: 02/25/17 21:17 Dose: 40 mg Bisoprolol Fumarate (Zebeta) 5 mg PO DAILY [facility] Last Admin: 02/26/17 11:31 Dose: 5 mg Chlordiazepoxide (Librium) 25 mg PO Q6 [facility] Last Admin: 02/26/17 11:30 Dose: 25 mg Clonidine HCl (Catapres) 0.1 mg PO BID [facility] Last Admin: 02/25/17 16:53 Dose: 0.1 mg Clopidogrel Bisulfate (Plavix) 75 mg PO DAILY [facility] Last Admin: 02/26/17 08:47 Dose: 75 mg Divalproex Sodium (Depakote Dr(*Bid*)) 500 mg PO BID [facility] Last Admin: 02/24/17 08:34 Dose: 500 mg Enoxaparin Sodium (Lovenox) 40 mg SC DAILY [facility] PRN Reason: Protocol Last Admin: 02/26/17 08:47 Dose: 40 mg Escitalopram Oxalate (Lexapro) 10 mg PO DAILY [facility] Last Admin: 02/24/17 08:34 Dose: 10 mg Folic Acid (Folic Acid) 1 mg PO DAILY [facility] Last Admin: 02/26/17 08:46 Dose: 1 mg Gabapentin (Neurontin) 300 mg PO TID [facility] Last Admin: 02/24/17 13:26 Dose: Not Given Ibuprofen (Motrin Tab) 600 mg PO Q8 PRN PRN Reason: Pain, moderate (4-7) Last Admin: 02/24/17 05:58 Dose: 600 mg Labetalol HCl (Trandate) 20 mg IVP Q6H PRN PRN Reason: Systolic Blood Pressure Last Admin: 02/25/17 05:49 Dose: 20 mg Lisinopril (Zestril) 10 mg PO DAILY@1700 [facility] Last Admin: 02/25/17 16:54 Dose: 10 mg Magnesium Oxide (Mag-Ox) 400 mg PO BID [facility] Last Admin: 02/26/17 08:46 Dose: 400 mg Ondansetron HCl (Zofran Inj) 4 mg IVP Q4 PRN PRN Reason: Nausea/Vomiting Last Admin: 02/22/17 18:00 Dose: 4 mg Risperidone (Risperdal Tab) 0.5 mg PO HS [facility] Last Admin: 02/23/17 22:08 Dose: 0.5 mg Fluticasone/Salmeterol (Advair Diskus 500/50) 1 puff IH BID [facility] Last Admin: 02/26/17 11:30 Dose: 1 puff Thiamine HCl (Vitamin B1 Tab) 100 mg PO DAILY [facility] Last Admin: 02/26/17 08:46 Dose: 100 mg - Labs Labs: 02/26/17 05:30 02/26/17 05:30 PT 11.8 Seconds (9.8-13.1) 02/24/17 10:50 INR 1.1 (0.9-1.2) 02/24/17 10:50 APTT 28.6 Seconds (25.6-37.1) 02/24/17 10:50 - Constitutional Appears: Chronically Ill - Head Exam Head Exam: ATRAUMATIC, NORMAL INSPECTION, NORMOCEPHALIC - Eye Exam Eye Exam: EOMI, Normal appearance, PERRL Pupil Exam: NORMAL ACCOMODATION, PERRL - ENT Exam ENT Exam: Mucous Membranes Moist, Normal Exam - Neck Exam Neck Exam: Full ROM, Normal Inspection. absent: Lymphadenopathy - Respiratory Exam Respiratory Exam: Prolonged Expiratory Phase, Wheezes, NORMAL BREATHING PATTERN - Cardiovascular Exam Cardiovascular Exam: REGULAR RHYTHM, +S1, +S2. absent: Murmur - GI/Abdominal Exam GI & Abdominal Exam: Soft, Normal Bowel Sounds. absent: Tenderness - Rectal Exam Rectal Exam: NORMAL INSPECTION - Extremities Exam Extremities Exam: Full ROM, Normal Capillary Refill, Normal Inspection. absent : Joint Swelling, Pedal Edema - Back Exam Back Exam: NORMAL INSPECTION - Neurological Exam Neurological Exam: Alert, Awake, CN II-XII Intact, Normal Gait, Oriented x3 - Psychiatric Exam Psychiatric exam: Normal Affect, Normal Mood - Skin Skin Exam: Dry, Intact, Normal Color, Warm Assessment and Plan - Assessment and Plan (Free Text) Assessment: amita rainey copd exac Plan: continue present rx
[2017-02-27] MEDS: Albuterol-Ipratrop 3 mg / 0.5 (3 ml) UD INH SCH ×6 (00:07→19:48)
[2017-02-27 08:08] LABS: HEMATOCRIT 45.4 % (35.0-51.0); MEAN CELL VOLUME 93.9 fl (80.0-94.0); MEAN CORPUSCULAR HEMOGLOBIN 31.1 pg (27.0-31.0); MEAN CORPUSCULAR HGB CONC 33.2 g/dL (33.0-37.0); RED CELL DISTRIBUTION WIDTH 13.1 % (11.5-14.5); WHITE BLOOD COUNT 9.9 K/uL (4.8-10.8)
[2017-02-27 08:50] LABS: ALB/GLOB RATIO 1.1 (1.0-2.1); ALKALINE PHOSPHATASE 110 U/L (38-126); ALT/SGPT 79 U/L (21-72); AST/SGOT 54 U/L (17-59); BILIRUBIN,TOTAL 0.2 mg/dl (0.2-1.3); BLOOD UREA NITROGEN 35 mg/dl (9-20); CALCIUM 8.6 mg/dL (8.4-10.2); CARBON DIOXIDE 27 mmol/L (22-30); CHLORIDE 101 mmol/L (98-107); GFR AFRICAN-AMERICAN > 60; GLUCOSE,RANDOM 151 mg/dL (75-110); POTASSIUM 3.4 MMOL/L (3.6-5.0); SODIUM 138 mmol/l (132-148); TOTAL PROTEIN 6.7 G/DL (6.3-8.2)
[2017-02-27] MEDS: Fluticasone-Salmeterol 500-50mcg Diskus IH SCH ×2 (09:03→16:58)
[2017-02-27] MEDS: Enoxaparin 40 mg Syringe SC SCH (09:07)
[2017-02-27] MEDS: Magnesium Oxide 400 mg Tab UD PO SCH ×2 (09:09→17:02)
--- NOTE | 2017-02-27 11:48 | CP.PCM.PN ---
Subjective - Date & Time of Evaluation Date of Evaluation: 02/27/17 Time of Evaluation: 11:47 - Subjective Subjective: TRANSFERRED OUT OF ICU MORE AWAKE AND ALERT BUT CONFUSED TO DATE AND TIME Objective - Vital Signs/Intake and Output Vital Signs (last 24 hours): Temp Pulse Resp BP Pulse Ox 98.5 F 71 18 127/84 100 02/27/17 08:00 02/27/17 11:27 02/27/17 08:00 02/27/17 09:27 02/27/17 08:00 Intake and Output: 02/27/17 02/27/17 06:59 18:59 Intake Total 600 Balance 600 - Medications Medications: Current Medications Acetaminophen (Tylenol 325mg Tab) 650 mg PO Q6 PRN PRN Reason: Headache Last Admin: 02/26/17 22:54 Dose: 650 mg Albuterol/Ipratropium (Duoneb 3 Mg/0.5 Mg (3 Ml) Ud) 3 ml INH RQ4 [facility] Last Admin: 02/27/17 11:18 Dose: 3 ml Amlodipine Besylate (Norvasc) 10 mg PO DAILY [facility] Last Admin: 02/27/17 09:27 Dose: 10 mg Aspirin (Ecotrin) 81 mg PO DAILY [facility] Last Admin: 02/27/17 09:06 Dose: 81 mg Atorvastatin Calcium (Lipitor) 40 mg PO HS [facility] Last Admin: 02/26/17 21:13 Dose: 40 mg Bisoprolol Fumarate (Zebeta) 5 mg PO DAILY [facility] Last Admin: 02/27/17 09:11 Dose: 5 mg Chlordiazepoxide (Librium) 25 mg PO Q6 [facility] Last Admin: 02/27/17 09:20 Dose: 25 mg Clonidine HCl (Catapres) 0.1 mg PO BID [facility] Last Admin: 02/27/17 09:22 Dose: 0.1 mg Clopidogrel Bisulfate (Plavix) 75 mg PO DAILY [facility] Last Admin: 02/27/17 09:09 Dose: 75 mg Divalproex Sodium (Depakote Dr(*Bid*)) 500 mg PO BID [facility] Last Admin: 02/24/17 08:34 Dose: 500 mg Enoxaparin Sodium (Lovenox) 40 mg SC DAILY [facility] PRN Reason: Protocol Last Admin: 02/27/17 09:07 Dose: 40 mg Escitalopram Oxalate (Lexapro) 10 mg PO DAILY [facility] Last Admin: 02/24/17 08:34 Dose: 10 mg Folic Acid (Folic Acid) 1 mg PO DAILY [facility] Last Admin: 02/27/17 09:06 Dose: 1 mg Gabapentin (Neurontin) 300 mg PO TID [facility] Last Admin: 02/24/17 13:26 Dose: Not Given Ibuprofen (Motrin Tab) 600 mg PO Q8 PRN PRN Reason: Pain, moderate (4-7) Last Admin: 02/26/17 21:11 Dose: 600 mg Labetalol HCl (Trandate) 20 mg IVP Q6H PRN PRN Reason: Systolic Blood Pressure Last Admin: 02/25/17 05:49 Dose: 20 mg Lisinopril (Zestril) 10 mg PO DAILY@1700 [facility] Last Admin: 02/26/17 16:35 Dose: 10 mg Magnesium Oxide (Mag-Ox) 400 mg PO BID [facility] Last Admin: 02/27/17 09:09 Dose: 400 mg Ondansetron HCl (Zofran Inj) 4 mg IVP Q4 PRN PRN Reason: Nausea/Vomiting Last Admin: 02/22/17 18:00 Dose: 4 mg Risperidone (Risperdal Tab) 0.5 mg PO HS [facility] Last Admin: 02/23/17 22:08 Dose: 0.5 mg Fluticasone/Salmeterol (Advair Diskus 500/50) 1 puff IH BID [facility] Last Admin: 02/27/17 09:03 Dose: 1 puff Thiamine HCl (Vitamin B1 Tab) 100 mg PO DAILY [facility] Last Admin: 02/27/17 09:10 Dose: 100 mg - Labs Labs: 02/27/17 07:25 02/27/17 07:25 PT 11.8 Seconds (9.8-13.1) 02/24/17 10:50 INR 1.1 (0.9-1.2) 02/24/17 10:50 APTT 28.6 Seconds (25.6-37.1) 02/24/17 10:50 - Constitutional Appears: No Acute Distress - Head Exam Head Exam: ATRAUMATIC, NORMAL INSPECTION, NORMOCEPHALIC - Eye Exam Eye Exam: EOMI, Normal appearance, PERRL Pupil Exam: NORMAL ACCOMODATION, PERRL - ENT Exam ENT Exam: Mucous Membranes Moist, Normal Exam - Neck Exam Neck Exam: Full ROM, Normal Inspection. absent: Lymphadenopathy - Respiratory Exam Respiratory Exam: Clear to Ausculation Bilateral, Prolonged Expiratory Phase, NORMAL BREATHING PATTERN - Cardiovascular Exam Cardiovascular Exam: REGULAR RHYTHM, +S1, +S2. absent: Murmur - GI/Abdominal Exam GI & Abdominal Exam: Soft, Normal Bowel Sounds. absent: Tenderness - Rectal Exam Rectal Exam: NORMAL INSPECTION - Extremities Exam Extremities Exam: Full ROM, Normal Capillary Refill, Normal Inspection. absent : Joint Swelling, Pedal Edema - Back Exam Back Exam: NORMAL INSPECTION - Neurological Exam Neurological Exam: Alert, Awake, CN II-XII Intact, Normal Gait, Oriented x3 - Psychiatric Exam Psychiatric exam: Normal Affect, Normal Mood - Skin Skin Exam: Dry, Intact, Normal Color, Warm Assessment and Plan - Assessment and Plan (Free Text) Assessment: COPD IMP[ROVED DT IMPROVING Plan: CONTINUE PRESENT RX
--- NOTE | 2017-02-27 13:03 | PN ---
DATE: 02/27/2017 SUBJECTIVE: The patient is seen and examined. Interim events noted. Consults noted and appreciated. The patient remains in Progressive Care Unit, on telemetry monitoring without any one-to-one observation. The patient feels okay. No jitteriness. No signs of withdrawal. No chest pain. No shortness of breath. PHYSICAL EXAMINATION: GENERAL: The patient is in no acute distress. VITAL SIGNS: Stable. HEART: S1 and S2, normal and regular. LUNGS: Good bilateral air exchange. ABDOMEN: Soft, nontender. EXTREMITIES: No edema. No calf swelling. No tenderness. No acute ischemia. CENTRAL NERVOUS SYSTEM: Essentially unchanged. DIAGNOSTIC DATA: Available diagnostic data reviewed. ASSESSMENT: Overall, the patient's general medical condition is stable. Telemetry monitoring does not reveal significant arrhythmia. Other available diagnostic data reviewed. Plan as ordered. Yury Martínez MD
[2017-02-27] MEDS ORDERED: Potassium Chloride 20 mEq ER Tab PO ONE (16:39)
[2017-02-27] MEDS: guaiFENesin DM 200 mg-20 mg/10 ml UD PO PRN (17:07)
[2017-02-28] MEDS: Albuterol-Ipratrop 3 mg / 0.5 (3 ml) UD INH SCH ×5 (00:03→23:53)
[2017-02-28 06:10] LABS: HEMATOCRIT 43.1 % (35.0-51.0); MEAN CELL VOLUME 94.4 fl (80.0-94.0); MEAN CORPUSCULAR HEMOGLOBIN 31.2 pg (27.0-31.0); RED CELL DISTRIBUTION WIDTH 13.3 % (11.5-14.5)
[2017-02-28 07:22] LABS: ALB/GLOB RATIO 1.1 (1.0-2.1); ALKALINE PHOSPHATASE 136 U/L (38-126); ALT/SGPT 87 U/L (21-72); AST/SGOT 49 U/L (17-59); BILIRUBIN,TOTAL 0.2 mg/dl (0.2-1.3); BLOOD UREA NITROGEN 27 mg/dl (9-20); CALCIUM 8.6 mg/dL (8.4-10.2); CARBON DIOXIDE 28 mmol/L (22-30); CHLORIDE 105 mmol/L (98-107); GFR AFRICAN-AMERICAN > 60; GLUCOSE,RANDOM 111 mg/dL (75-110); SODIUM 139 mmol/l (132-148); TOTAL PROTEIN 6.6 G/DL (6.3-8.2)
[2017-02-28] MEDS: Fluticasone-Salmeterol 500-50mcg Diskus IH SCH ×2 (08:55→16:10)
[2017-02-28] MEDS: Magnesium Oxide 400 mg Tab UD PO SCH ×2 (08:55→16:10)
[2017-02-28] MEDS: guaiFENesin DM 200 mg-20 mg/10 ml UD PO PRN ×2 (09:55→16:22)
--- NOTE | 2017-02-28 11:39 | PN ---
DATE: 02/28/2017 SUBJECTIVE: The patient is seen and examined. Interim events noted. The patient remains in Progressive Care Unit on telemetry monitoring. The patient is sleepy, arousable, but does not want to get into conversation at this time. Denies any specific complaint. No specific issue reported by nursing staff. PHYSICAL EXAMINATION GENERAL: The patient is in no acute distress. VITAL SIGNS: Stable. HEART: S1 and S2 normal, regular. LUNGS: Good bilateral air exchange. ABDOMEN: Soft and nontender. EXTREMITIES: No edema. No calf swelling. No tenderness. No acute ischemia. CENTRAL NERVOUS SYSTEM: Essentially unchanged. There is no sign of withdrawal. There is no sign of any acute gross focal motor or sensory neurological deficit. DIAGNOSTIC DATA: Available diagnostic data reviewed. WBC 11, hemoglobin 14.2, hematocrit 43.1, platelets 170. Sodium 139, potassium 4.0, chloride , bicarbonate 28, BUN 27, creatinine 1.1. SMA-12 is unremarkable. ASSESSMENT AND PLAN: Pulmonary consult, followup and intervention noted and appreciated. Overall, the patient is clinically stable and improving. Plan as ordered. Yury Martínez MD
[2017-03-01] MEDS: Albuterol-Ipratrop 3 mg / 0.5 (3 ml) UD INH SCH ×6 (05:29→23:54)
[2017-03-01 05:51] LABS: HEMATOCRIT 42.8 % (35.0-51.0); MEAN CELL VOLUME 94.5 fl (80.0-94.0); MEAN CORPUSCULAR HEMOGLOBIN 31.2 pg (27.0-31.0); RED CELL DISTRIBUTION WIDTH 13.3 % (11.5-14.5); WHITE BLOOD COUNT 10.8 K/uL (4.8-10.8)
[2017-03-01 06:24] LABS: ALB/GLOB RATIO 1.2 (1.0-2.1); ALKALINE PHOSPHATASE 76 U/L (38-126); ALT/SGPT 117 U/L (21-72); AST/SGOT 72 U/L (17-59); BILIRUBIN,TOTAL 0.3 mg/dl (0.2-1.3); BLOOD UREA NITROGEN 22 mg/dl (9-20); CALCIUM 8.6 mg/dL (8.4-10.2); CARBON DIOXIDE 29 mmol/L (22-30); CHLORIDE 105 mmol/L (98-107); GFR AFRICAN-AMERICAN > 60; GLUCOSE,RANDOM 117 mg/dL (75-110); POTASSIUM 4.4 MMOL/L (3.6-5.0); SODIUM 139 mmol/l (132-148); TOTAL PROTEIN 6.6 G/DL (6.3-8.2)
--- NOTE | 2017-03-01 08:57 | CP.PCM.PN ---
Subjective - Date & Time of Evaluation Date of Evaluation: 03/01/17 Time of Evaluation: 08:56 - Subjective Subjective: sob improved awake and alert no more hallucinations Objective - Vital Signs/Intake and Output Vital Signs (last 24 hours): Temp Pulse Resp BP Pulse Ox 97.5 F L 82 18 104/69 99 03/01/17 08:22 03/01/17 08:22 03/01/17 08:22 03/01/17 08:22 03/01/17 08:22 - Medications Medications: Current Medications Acetaminophen (Tylenol 325mg Tab) 650 mg PO Q6 PRN PRN Reason: Headache Last Admin: 03/01/17 04:52 Dose: 650 mg Albuterol/Ipratropium (Duoneb 3 Mg/0.5 Mg (3 Ml) Ud) 3 ml INH RQ4 [facility] Last Admin: 03/01/17 08:01 Dose: 3 ml Amlodipine Besylate (Norvasc) 10 mg PO DAILY [facility] Last Admin: 02/28/17 08:54 Dose: 10 mg Aspirin (Ecotrin) 81 mg PO DAILY [facility] Last Admin: 02/28/17 08:54 Dose: 81 mg Atorvastatin Calcium (Lipitor) 40 mg PO HS [facility] Last Admin: 02/28/17 21:53 Dose: 40 mg Bisoprolol Fumarate (Zebeta) 5 mg PO DAILY [facility] Last Admin: 02/28/17 08:53 Dose: 5 mg Chlordiazepoxide (Librium) 25 mg PO Q12 [facility] Clonidine HCl (Catapres) 0.1 mg PO BID [facility] Last Admin: 02/28/17 16:10 Dose: 0.1 mg Clopidogrel Bisulfate (Plavix) 75 mg PO DAILY [facility] Last Admin: 02/28/17 08:53 Dose: 75 mg Divalproex Sodium (Depakote Dr(*Bid*)) 500 mg PO BID [facility] Last Admin: 02/24/17 08:34 Dose: 500 mg Escitalopram Oxalate (Lexapro) 10 mg PO DAILY [facility] Last Admin: 02/24/17 08:34 Dose: 10 mg Folic Acid (Folic Acid) 1 mg PO DAILY [facility] Last Admin: 02/28/17 08:54 Dose: 1 mg Gabapentin (Neurontin) 300 mg PO TID [facility] Last Admin: 02/24/17 13:26 Dose: Not Given Guaifenesin/Dextromethorphan (Robitussin Dm) 10 ml PO Q6 PRN PRN Reason: Cough Last Admin: 02/28/17 16:22 Dose: 10 ml Ibuprofen (Motrin Tab) 600 mg PO Q8 PRN PRN Reason: Pain, moderate (4-7) Last Admin: 02/26/17 21:11 Dose: 600 mg Labetalol HCl (Trandate) 20 mg IVP Q6H PRN PRN Reason: Systolic Blood Pressure Last Admin: 02/25/17 05:49 Dose: 20 mg Lisinopril (Zestril) 10 mg PO DAILY@1700 [facility] Last Admin: 02/28/17 16:11 Dose: 10 mg Magnesium Hydroxide (Milk Of Magnesia) 30 ml PO ONCE ONE Stop: 03/01/17 23:58 Last Admin: 03/01/17 00:38 Dose: 30 ml Magnesium Oxide (Mag-Ox) 400 mg PO BID [facility] Last Admin: 02/28/17 16:10 Dose: 400 mg Ondansetron HCl (Zofran Inj) 4 mg IVP Q4 PRN PRN Reason: Nausea/Vomiting Last Admin: 02/22/17 18:00 Dose: 4 mg Risperidone (Risperdal Tab) 0.5 mg PO HS [facility] Last Admin: 02/23/17 22:08 Dose: 0.5 mg Fluticasone/Salmeterol (Advair Diskus 500/50) 1 puff IH BID [facility] Last Admin: 02/28/17 16:10 Dose: 1 puff Thiamine HCl (Vitamin B1 Tab) 100 mg PO DAILY [facility] Last Admin: 02/28/17 08:54 Dose: 100 mg - Labs Labs: 03/01/17 04:20 03/01/17 04:20 PT 11.8 Seconds (9.8-13.1) 02/24/17 10:50 INR 1.1 (0.9-1.2) 02/24/17 10:50 APTT 28.6 Seconds (25.6-37.1) 02/24/17 10:50 - Constitutional Appears: No Acute Distress - Head Exam Head Exam: ATRAUMATIC, NORMAL INSPECTION, NORMOCEPHALIC - Eye Exam Eye Exam: EOMI, Normal appearance, PERRL Pupil Exam: NORMAL ACCOMODATION, PERRL - ENT Exam ENT Exam: Mucous Membranes Moist, Normal Exam - Neck Exam Neck Exam: Full ROM, Normal Inspection. absent: Lymphadenopathy - Respiratory Exam Respiratory Exam: Clear to Ausculation Bilateral, Prolonged Expiratory Phase, NORMAL BREATHING PATTERN - Cardiovascular Exam Cardiovascular Exam: REGULAR RHYTHM, +S1, +S2. absent: Murmur - GI/Abdominal Exam GI & Abdominal Exam: Soft, Normal Bowel Sounds. absent: Tenderness - Rectal Exam Rectal Exam: NORMAL INSPECTION - Extremities Exam Extremities Exam: Full ROM, Normal Capillary Refill, Normal Inspection. absent : Joint Swelling, Pedal Edema - Back Exam Back Exam: NORMAL INSPECTION - Neurological Exam Neurological Exam: Alert, Awake, CN II-XII Intact, Normal Gait, Oriented x3 - Psychiatric Exam Psychiatric exam: Normal Affect, Normal Mood - Skin Skin Exam: Dry, Intact, Normal Color, Warm Assessment and Plan - Assessment and Plan (Free Text) Assessment: copd improving dts improving Plan: taper steroids
[2017-03-01] MEDS: Magnesium Oxide 400 mg Tab UD PO SCH ×2 (09:35→17:39)
[2017-03-01] MEDS: Divalproex 500 mg DR(BID formulation) PO SCH ×2 (09:37→17:39)
[2017-03-01] MEDS: Fluticasone-Salmeterol 500-50mcg Diskus IH SCH ×2 (09:37→17:39)
--- NOTE | 2017-03-01 10:51 | CP.PCM.PN ---
<Michael Milton - Last Filed: 03/01/17 11:57> Subjective - Date & Time of Evaluation Date of Evaluation: 03/01/17 Time of Evaluation: 07:30 - Subjective Subjective: Patient seen and examined bedside with Dr Martínez. Patient AAOx2 not time. Patient breathing room air, denies chest pain,SOB, abd pain, palpitation, headache. no withdrawal symptoms noted. Objective - Vital Signs/Intake and Output Vital Signs (last 24 hours): Temp Pulse Resp BP Pulse Ox 97.5 F L 82 18 104/69 99 03/01/17 08:22 03/01/17 09:37 03/01/17 08:22 03/01/17 09:37 03/01/17 08:22 - Medications Medications: Current Medications Acetaminophen (Tylenol 325mg Tab) 650 mg PO Q6 PRN PRN Reason: Headache Last Admin: 03/01/17 04:52 Dose: 650 mg Albuterol/Ipratropium (Duoneb 3 Mg/0.5 Mg (3 Ml) Ud) 3 ml INH RQ4 [facility] Last Admin: 03/01/17 08:01 Dose: 3 ml Amlodipine Besylate (Norvasc) 10 mg PO DAILY [facility] Last Admin: 03/01/17 09:35 Dose: 10 mg Aspirin (Ecotrin) 81 mg PO DAILY [facility] Last Admin: 03/01/17 09:37 Dose: 81 mg Atorvastatin Calcium (Lipitor) 40 mg PO HS [facility] Last Admin: 02/28/17 21:53 Dose: 40 mg Bisoprolol Fumarate (Zebeta) 5 mg PO DAILY [facility] Last Admin: 03/01/17 09:38 Dose: 5 mg Chlordiazepoxide (Librium) 25 mg PO Q12 PRN PRN Reason: Symptoms of alcohol withdrawl Clonidine HCl (Catapres) 0.1 mg PO BID [facility] Last Admin: 03/01/17 09:37 Dose: Not Given Clopidogrel Bisulfate (Plavix) 75 mg PO DAILY [facility] Last Admin: 03/01/17 09:36 Dose: 75 mg Divalproex Sodium (Depakote Dr(*Bid*)) 500 mg PO BID [facility] Last Admin: 03/01/17 09:37 Dose: 500 mg Escitalopram Oxalate (Lexapro) 10 mg PO DAILY [facility] Last Admin: 03/01/17 09:36 Dose: 10 mg Folic Acid (Folic Acid) 1 mg PO DAILY [facility] Last Admin: 03/01/17 09:36 Dose: 1 mg Gabapentin (Neurontin) 300 mg PO TID [facility] Last Admin: 03/01/17 09:34 Dose: 300 mg Guaifenesin/Dextromethorphan (Robitussin Dm) 10 ml PO Q6 PRN PRN Reason: Cough Last Admin: 02/28/17 16:22 Dose: 10 ml Ibuprofen (Motrin Tab) 600 mg PO Q8 PRN PRN Reason: Pain, moderate (4-7) Last Admin: 02/26/17 21:11 Dose: 600 mg Labetalol HCl (Trandate) 20 mg IVP Q6H PRN PRN Reason: Systolic Blood Pressure Last Admin: 02/25/17 05:49 Dose: 20 mg Lisinopril (Zestril) 10 mg PO DAILY@1700 [facility] Last Admin: 02/28/17 16:11 Dose: 10 mg Magnesium Hydroxide (Milk Of Magnesia) 30 ml PO ONCE ONE Stop: 03/01/17 23:58 Last Admin: 03/01/17 00:38 Dose: 30 ml Magnesium Oxide (Mag-Ox) 400 mg PO BID [facility] Last Admin: 03/01/17 09:35 Dose: 400 mg Ondansetron HCl (Zofran Inj) 4 mg IVP Q4 PRN PRN Reason: Nausea/Vomiting Last Admin: 02/22/17 18:00 Dose: 4 mg Risperidone (Risperdal Tab) 0.5 mg PO HS [facility] Last Admin: 02/23/17 22:08 Dose: 0.5 mg Fluticasone/Salmeterol (Advair Diskus 500/50) 1 puff IH BID [facility] Last Admin: 03/01/17 09:37 Dose: 1 puff Thiamine HCl (Vitamin B1 Tab) 100 mg PO DAILY [facility] Last Admin: 03/01/17 09:36 Dose: 100 mg - Labs Labs: 03/01/17 04:20 03/01/17 04:20 PT 11.8 Seconds (9.8-13.1) 02/24/17 10:50 INR 1.1 (0.9-1.2) 02/24/17 10:50 APTT 28.6 Seconds (25.6-37.1) 02/24/17 10:50 - Constitutional Appears: No Acute Distress - Head Exam Head Exam: ATRAUMATIC, NORMOCEPHALIC - Eye Exam Eye Exam: Normal appearance - Neck Exam Neck Exam: Normal Inspection - Respiratory Exam Respiratory Exam: Decreased Breath Sounds, Wheezes Additional comments: bibasal with scattered wheezing at the end of expirarion - Cardiovascular Exam Cardiovascular Exam: REGULAR RHYTHM, +S1, +S2 - GI/Abdominal Exam GI & Abdominal Exam: Soft, Normal Bowel Sounds. absent: Tenderness - Extremities Exam Extremities Exam: Normal Inspection. absent: Pedal Edema - Neurological Exam Neurological Exam: Alert, Awake - Psychiatric Exam Psychiatric exam: Normal Affect, Normal Mood - Skin Skin Exam: Intact Assessment and Plan - Assessment and Plan (Free Text) Plan: 1) AMS -resolved (2) COPD exacerbation Assessment and Plan: -improving Xr No infiltrates Pulmonology consult appreciated.pt cleared -hold steroids Status: Acute (3) Hypertension Assessment and Plan: -controlled -bisoprolol,clonidine (4) ETOH withdrawal -resolved -librium q 12 - CIWA 0 (5) Headache -controlled -secondary to ETOh withdrawal,uncontrolled HTN, cerebral atherosclerosis - Neuro consult appreciated -Aspirin, plavix -MRI brain neg (6) DVT prophylaxis Assessment and Plan: Lovenox 40 mg sc Status: Acute <Martínez,Yury K - Last Filed: 03/04/17 12:41> Objective - Vital Signs/Intake and Output Vital Signs (last 24 hours): Temp Pulse Resp BP Pulse Ox 98.3 F 82 16 113/73 98 03/03/17 20:18 03/03/17 20:18 03/03/17 20:18 03/03/17 20:18 03/03/17 20:18 - Labs Labs: 03/01/17 04:20 03/01/17 04:20 PT 11.8 Seconds (9.8-13.1) 02/24/17 10:50 INR 1.1 (0.9-1.2) 02/24/17 10:50 APTT 28.6 Seconds (25.6-37.1) 02/24/17 10:50 Assessment and Plan - Assessment and Plan (Free Text) Assessment: Patient was personally seen and examined by me in rounds with residents. Available labs and diagnostic data reviewed. Case, patient's condition and management plan discussed with residents in rounds. Agree with resident's progress note. Plan: As ordered.
[2017-03-01 14:21] VITALS: BMI 29.5
[2017-03-01] MEDS ORDERED: Magnesium Hydroxide Susp 30 ml UD PO ONE (23:57)
[2017-03-02] MEDS: Albuterol-Ipratrop 3 mg / 0.5 (3 ml) UD INH SCH ×6 (05:16→23:32)
--- NOTE | 2017-03-02 06:46 | CP.PCM.PN ---
Subjective - Date & Time of Evaluation Date of Evaluation: 03/02/17 Time of Evaluation: 06:43 - Subjective Subjective: Mr. Ledesma was seen and examined at the bedside. He is alert with episode of confusion to time (1991), but oriented to person and place. He states of his headaches is much improved from previous examination. He denies any weakness, lightheadedness, dizziness, numbness, nausea, or vomiting. He was able to follow simple commands. There was no untoward events overnight. Objective - Vital Signs/Intake and Output Vital Signs (last 24 hours): Temp Pulse Resp BP Pulse Ox 97.9 F 83 20 112/76 97 03/02/17 05:00 03/02/17 05:00 03/02/17 05:00 03/02/17 05:00 03/02/17 05:00 Intake and Output: 03/01/17 03/02/17 18:59 06:59 Intake Total 1300 Output Total 1 Balance 1299 - Medications Medications: Current Medications Acetaminophen (Tylenol 325mg Tab) 650 mg PO Q6 PRN PRN Reason: Headache Last Admin: 03/01/17 04:52 Dose: 650 mg Albuterol/Ipratropium (Duoneb 3 Mg/0.5 Mg (3 Ml) Ud) 3 ml INH RQ4 [facility] Last Admin: 03/02/17 05:16 Dose: 3 ml Amlodipine Besylate (Norvasc) 10 mg PO DAILY [facility] Last Admin: 03/01/17 09:35 Dose: 10 mg Aspirin (Ecotrin) 81 mg PO DAILY [facility] Last Admin: 03/01/17 09:37 Dose: 81 mg Atorvastatin Calcium (Lipitor) 40 mg PO HS [facility] Last Admin: 03/01/17 21:05 Dose: 40 mg Bisoprolol Fumarate (Zebeta) 5 mg PO DAILY [facility] Last Admin: 03/01/17 09:38 Dose: 5 mg Chlordiazepoxide (Librium) 25 mg PO Q12 PRN PRN Reason: Symptoms of alcohol withdrawl Clonidine HCl (Catapres) 0.1 mg PO BID [facility] Last Admin: 03/01/17 18:02 Dose: Not Given Clopidogrel Bisulfate (Plavix) 75 mg PO DAILY [facility] Last Admin: 03/01/17 09:36 Dose: 75 mg Divalproex Sodium (Depakote Dr(*Bid*)) 500 mg PO BID [facility] Last Admin: 03/01/17 17:39 Dose: 500 mg Escitalopram Oxalate (Lexapro) 10 mg PO DAILY [facility] Last Admin: 03/01/17 09:36 Dose: 10 mg Folic Acid (Folic Acid) 1 mg PO DAILY [facility] Last Admin: 03/01/17 09:36 Dose: 1 mg Gabapentin (Neurontin) 300 mg PO TID [facility] Last Admin: 03/01/17 17:39 Dose: 300 mg Guaifenesin/Dextromethorphan (Robitussin Dm) 10 ml PO Q6 PRN PRN Reason: Cough Last Admin: 02/28/17 16:22 Dose: 10 ml Ibuprofen (Motrin Tab) 600 mg PO Q8 PRN PRN Reason: Pain, moderate (4-7) Last Admin: 03/02/17 02:13 Dose: 600 mg Labetalol HCl (Trandate) 20 mg IVP Q6H PRN PRN Reason: Systolic Blood Pressure Last Admin: 02/25/17 05:49 Dose: 20 mg Lisinopril (Zestril) 10 mg PO DAILY@1700 [facility] Last Admin: 03/01/17 17:39 Dose: 10 mg Magnesium Oxide (Mag-Ox) 400 mg PO BID [facility] Last Admin: 03/01/17 17:39 Dose: 400 mg Ondansetron HCl (Zofran Inj) 4 mg IVP Q4 PRN PRN Reason: Nausea/Vomiting Last Admin: 02/22/17 18:00 Dose: 4 mg Risperidone (Risperdal Tab) 0.5 mg PO HS [facility] Last Admin: 03/01/17 21:05 Dose: 0.5 mg Fluticasone/Salmeterol (Advair Diskus 500/50) 1 puff IH BID [facility] Last Admin: 03/01/17 17:39 Dose: 1 puff Thiamine HCl (Vitamin B1 Tab) 100 mg PO DAILY [facility] Last Admin: 03/01/17 09:36 Dose: 100 mg - Labs Labs: 03/01/17 04:20 03/01/17 04:20 PT 11.8 Seconds (9.8-13.1) 02/24/17 10:50 INR 1.1 (0.9-1.2) 02/24/17 10:50 APTT 28.6 Seconds (25.6-37.1) 02/24/17 10:50 - Constitutional Appears: No Acute Distress - Head Exam Head Exam: ATRAUMATIC - Neurological Exam Neurological Exam: Alert, Awake Neuro motor strength exam: Left Upper Extremity: 4, Right Upper Extremity: 4, Left Lower Extremity: 4, Right Lower Extremity: 4 Additional comments: Reflexes are within normal, Finger to nose was wide range and not able to localize with eyes closed. Sensation remains intact. Assessment and Plan (1) Cerebral atherosclerosis Assessment & Plan: Case discussed with Dr. Arita, continue all current medical, physical regimen. There is no new recommendation from neurology. Status: Acute (2) Headache Assessment & Plan: Case discussed with Dr. Arita, continue medical regimen.If headache gets worst to repeat CT of the head without contrast. Status: Acute (3) Drug abuse Status: Acute
--- NOTE | 2017-03-02 08:57 | CP.PCM.PN ---
Subjective - Date & Time of Evaluation Date of Evaluation: 03/02/17 Time of Evaluation: 07:20 - Subjective Subjective: Patient seen and examined bedside with Dr Martínez. Patient reports feeling better, reports had headache last night. he denies headache, SOB, wheezing, chest pain,SOB, abd pain, palpitation, headache. no withdrawal symptoms noted. Objective - Vital Signs/Intake and Output Vital Signs (last 24 hours): Temp Pulse Resp BP Pulse Ox 97.9 F 79 18 121/76 99 03/02/17 08:00 03/02/17 08:00 03/02/17 08:00 03/02/17 08:00 03/02/17 08:00 - Medications Medications: Current Medications Acetaminophen (Tylenol 325mg Tab) 650 mg PO Q6 PRN PRN Reason: Headache Last Admin: 03/01/17 04:52 Dose: 650 mg Albuterol/Ipratropium (Duoneb 3 Mg/0.5 Mg (3 Ml) Ud) 3 ml INH RQ4 [facility] Last Admin: 03/02/17 07:59 Dose: 3 ml Amlodipine Besylate (Norvasc) 10 mg PO DAILY [facility] Last Admin: 03/01/17 09:35 Dose: 10 mg Aspirin (Ecotrin) 81 mg PO DAILY [facility] Last Admin: 03/01/17 09:37 Dose: 81 mg Atorvastatin Calcium (Lipitor) 40 mg PO HS [facility] Last Admin: 03/01/17 21:05 Dose: 40 mg Bisoprolol Fumarate (Zebeta) 5 mg PO DAILY [facility] Last Admin: 03/01/17 09:38 Dose: 5 mg Chlordiazepoxide (Librium) 25 mg PO Q12 PRN PRN Reason: Symptoms of alcohol withdrawl Clonidine HCl (Catapres) 0.1 mg PO BID [facility] Last Admin: 03/01/17 18:02 Dose: Not Given Clopidogrel Bisulfate (Plavix) 75 mg PO DAILY [facility] Last Admin: 03/01/17 09:36 Dose: 75 mg Divalproex Sodium (Depakote Dr(*Bid*)) 500 mg PO BID [facility] Last Admin: 03/01/17 17:39 Dose: 500 mg Escitalopram Oxalate (Lexapro) 10 mg PO DAILY [facility] Last Admin: 03/01/17 09:36 Dose: 10 mg Folic Acid (Folic Acid) 1 mg PO DAILY [facility] Last Admin: 03/01/17 09:36 Dose: 1 mg Gabapentin (Neurontin) 300 mg PO TID [facility] Last Admin: 03/01/17 17:39 Dose: 300 mg Guaifenesin/Dextromethorphan (Robitussin Dm) 10 ml PO Q6 PRN PRN Reason: Cough Last Admin: 02/28/17 16:22 Dose: 10 ml Ibuprofen (Motrin Tab) 600 mg PO Q8 PRN PRN Reason: Pain, moderate (4-7) Last Admin: 03/02/17 02:13 Dose: 600 mg Labetalol HCl (Trandate) 20 mg IVP Q6H PRN PRN Reason: Systolic Blood Pressure Last Admin: 02/25/17 05:49 Dose: 20 mg Lisinopril (Zestril) 10 mg PO DAILY@1700 [facility] Last Admin: 03/01/17 17:39 Dose: 10 mg Magnesium Oxide (Mag-Ox) 400 mg PO BID [facility] Last Admin: 03/01/17 17:39 Dose: 400 mg Ondansetron HCl (Zofran Inj) 4 mg IVP Q4 PRN PRN Reason: Nausea/Vomiting Last Admin: 02/22/17 18:00 Dose: 4 mg Risperidone (Risperdal Tab) 0.5 mg PO HS [facility] Last Admin: 03/01/17 21:05 Dose: 0.5 mg Fluticasone/Salmeterol (Advair Diskus 500/50) 1 puff IH BID [facility] Last Admin: 03/01/17 17:39 Dose: 1 puff Thiamine HCl (Vitamin B1 Tab) 100 mg PO DAILY [facility] Last Admin: 03/01/17 09:36 Dose: 100 mg - Labs Labs: 03/01/17 04:20 03/01/17 04:20 PT 11.8 Seconds (9.8-13.1) 02/24/17 10:50 INR 1.1 (0.9-1.2) 02/24/17 10:50 APTT 28.6 Seconds (25.6-37.1) 02/24/17 10:50 - Constitutional Appears: Non-toxic, No Acute Distress - Eye Exam Eye Exam: Normal appearance - ENT Exam ENT Exam: Normal Exam - Respiratory Exam Respiratory Exam: Clear to Ausculation Bilateral, Rhonchi. absent: Rales, Wheezes - Cardiovascular Exam Cardiovascular Exam: REGULAR RHYTHM, +S1, +S2 - GI/Abdominal Exam GI & Abdominal Exam: Soft, Normal Bowel Sounds. absent: Tenderness - Extremities Exam Extremities Exam: Normal Inspection. absent: Pedal Edema - Neurological Exam Neurological Exam: Alert, Awake, Oriented x3 - Skin Skin Exam: Intact Assessment and Plan - Assessment and Plan (Free Text) Plan: Assessment/Plan 1) AMS -resolved (2) COPD exacerbation Assessment and Plan: -improving Xr No infiltrates Pulmonology consult appreciated.pt cleared -hold steroids -pending Physical therapy.pt refused yesterday. new PT order was put for today. (3) Hypertension Assessment and Plan: -controlled -bisoprolol,clonidine (4) ETOH withdrawal -resolved -librium q 12 - CIWA 0 (5) Headache -controlled -secondary to ETOh withdrawal,uncontrolled HTN, cerebral atherosclerosis - Neuro consult appreciated -Aspirin, plavix -MRI brain neg (6) DVT prophylaxis Assessment and Plan: Lovenox 40 mg sc Status: Acute
--- NOTE | 2017-03-02 08:58 | CP.PCM.PN ---
Subjective - Date & Time of Evaluation Date of Evaluation: 03/02/17 Time of Evaluation: 08:58 - Subjective Subjective: no chest pains/sob Objective - Vital Signs/Intake and Output Vital Signs (last 24 hours): Temp Pulse Resp BP Pulse Ox 97.9 F 79 18 121/76 99 03/02/17 08:00 03/02/17 08:00 03/02/17 08:00 03/02/17 08:00 03/02/17 08:00 - Medications Medications: Current Medications Acetaminophen (Tylenol 325mg Tab) 650 mg PO Q6 PRN PRN Reason: Headache Last Admin: 03/01/17 04:52 Dose: 650 mg Albuterol/Ipratropium (Duoneb 3 Mg/0.5 Mg (3 Ml) Ud) 3 ml INH RQ4 [facility] Last Admin: 03/02/17 07:59 Dose: 3 ml Amlodipine Besylate (Norvasc) 10 mg PO DAILY [facility] Last Admin: 03/01/17 09:35 Dose: 10 mg Aspirin (Ecotrin) 81 mg PO DAILY [facility] Last Admin: 03/01/17 09:37 Dose: 81 mg Atorvastatin Calcium (Lipitor) 40 mg PO HS [facility] Last Admin: 03/01/17 21:05 Dose: 40 mg Bisoprolol Fumarate (Zebeta) 5 mg PO DAILY [facility] Last Admin: 03/01/17 09:38 Dose: 5 mg Chlordiazepoxide (Librium) 25 mg PO Q12 PRN PRN Reason: Symptoms of alcohol withdrawl Clonidine HCl (Catapres) 0.1 mg PO BID [facility] Last Admin: 03/01/17 18:02 Dose: Not Given Clopidogrel Bisulfate (Plavix) 75 mg PO DAILY [facility] Last Admin: 03/01/17 09:36 Dose: 75 mg Divalproex Sodium (Depakote Dr(*Bid*)) 500 mg PO BID [facility] Last Admin: 03/01/17 17:39 Dose: 500 mg Escitalopram Oxalate (Lexapro) 10 mg PO DAILY [facility] Last Admin: 03/01/17 09:36 Dose: 10 mg Folic Acid (Folic Acid) 1 mg PO DAILY [facility] Last Admin: 03/01/17 09:36 Dose: 1 mg Gabapentin (Neurontin) 300 mg PO TID [facility] Last Admin: 03/01/17 17:39 Dose: 300 mg Guaifenesin/Dextromethorphan (Robitussin Dm) 10 ml PO Q6 PRN PRN Reason: Cough Last Admin: 02/28/17 16:22 Dose: 10 ml Ibuprofen (Motrin Tab) 600 mg PO Q8 PRN PRN Reason: Pain, moderate (4-7) Last Admin: 03/02/17 02:13 Dose: 600 mg Labetalol HCl (Trandate) 20 mg IVP Q6H PRN PRN Reason: Systolic Blood Pressure Last Admin: 02/25/17 05:49 Dose: 20 mg Lisinopril (Zestril) 10 mg PO DAILY@1700 [facility] Last Admin: 03/01/17 17:39 Dose: 10 mg Magnesium Oxide (Mag-Ox) 400 mg PO BID [facility] Last Admin: 03/01/17 17:39 Dose: 400 mg Ondansetron HCl (Zofran Inj) 4 mg IVP Q4 PRN PRN Reason: Nausea/Vomiting Last Admin: 02/22/17 18:00 Dose: 4 mg Risperidone (Risperdal Tab) 0.5 mg PO HS [facility] Last Admin: 03/01/17 21:05 Dose: 0.5 mg Fluticasone/Salmeterol (Advair Diskus 500/50) 1 puff IH BID [facility] Last Admin: 03/01/17 17:39 Dose: 1 puff Thiamine HCl (Vitamin B1 Tab) 100 mg PO DAILY [facility] Last Admin: 03/01/17 09:36 Dose: 100 mg - Labs Labs: 03/01/17 04:20 03/01/17 04:20 PT 11.8 Seconds (9.8-13.1) 02/24/17 10:50 INR 1.1 (0.9-1.2) 02/24/17 10:50 APTT 28.6 Seconds (25.6-37.1) 02/24/17 10:50 - Constitutional Appears: No Acute Distress - Head Exam Head Exam: ATRAUMATIC, NORMAL INSPECTION, NORMOCEPHALIC - Eye Exam Eye Exam: EOMI, Normal appearance, PERRL Pupil Exam: NORMAL ACCOMODATION, PERRL - ENT Exam ENT Exam: Mucous Membranes Moist, Normal Exam - Neck Exam Neck Exam: Full ROM, Normal Inspection. absent: Lymphadenopathy - Respiratory Exam Respiratory Exam: Clear to Ausculation Bilateral, NORMAL BREATHING PATTERN - Cardiovascular Exam Cardiovascular Exam: REGULAR RHYTHM, +S1, +S2. absent: Murmur - GI/Abdominal Exam GI & Abdominal Exam: Soft, Normal Bowel Sounds. absent: Tenderness - Rectal Exam Rectal Exam: NORMAL INSPECTION - Extremities Exam Extremities Exam: Full ROM, Normal Capillary Refill, Normal Inspection. absent : Joint Swelling, Pedal Edema - Back Exam Back Exam: NORMAL INSPECTION - Neurological Exam Neurological Exam: Alert, Awake, CN II-XII Intact, Normal Gait, Oriented x3 - Psychiatric Exam Psychiatric exam: Normal Affect, Normal Mood - Skin Skin Exam: Dry, Intact, Normal Color, Warm Assessment and Plan - Assessment and Plan (Free Text) Assessment: copd-improved alcohol withdrawal improved Plan: continue current rx
[2017-03-02] MEDS: Divalproex 500 mg DR(BID formulation) PO SCH ×2 (11:37→17:59)
[2017-03-02] MEDS: Magnesium Oxide 400 mg Tab UD PO SCH ×2 (11:37→17:59)
[2017-03-02] MEDS: Fluticasone-Salmeterol 500-50mcg Diskus IH SCH ×2 (11:37→17:58)
--- NOTE | 2017-03-02 14:11 | PQF GENQUE ---
This form is a permanent part of the medical record 03/02/17 Dr. Martínez, Please specify if lacunar infarct is ruled in or ruled out. MRI brain 02/23: No evidence of acute infarction. 02/24 CT no acute findings. PN: 02/24 Under heading AMS: CT head small L lacunar infarct. Under heading Headache: MRI brain negative. Infarct not mentioned again. Admitted ( 02/22) with cough, sob, subjective fever. 02/23 neuro consulted for severe headaches for the last 2 weeks and several episodes of "blacking out". Clarification of your documentation is requested to better reflect the severity of illness and intensity of treatment of your patient. Indicators present [] Specify: [] [] Specify: [] [] Specify: [] [] Specify: [] Location in the medical record that reflects the above clinical findings: [] Treatment Provided: [] PHYSICIAN'S RESPONSE Based on your medical judgment of the clinical indicators outlined above please clarify the following: [] Practitioner response [] If unable to determine, please check the box, sign and date. Present On Admission (POA) Indicator: [] Present at the time of admission [] Not present at the time of admission [] Clinically Undetermined In responding to this query, please exercise your independent professional judgment. The fact that a question is asked does not imply that any particular answer is desired or expected. Thank you for your clarification on this documentation. If you have any questions please call:[phone] * Thank you, Radha Summers RN, CD[facility]
[2017-03-03] MEDS: Albuterol-Ipratrop 3 mg / 0.5 (3 ml) UD INH SCH ×5 (05:00→19:47)
--- NOTE | 2017-03-03 08:36 | CP.PCM.PN ---
Subjective - Date & Time of Evaluation Date of Evaluation: 03/03/17 Time of Evaluation: 08:30 - Subjective Subjective: Mr. Ledesma was seen and examined at the bedside. He is alert, oriented and able to answer questions appropriately and follows simple commands. He states of experiencing generalized headache with pain scale 5/10 with very mild blurred vision, characterize as pressure-like. He denies any dizziness, lightheadedness , weakness, numbness, nausea, or vomiting. His liver enzymes are elevated AST ( 72, ALT (117). He further states of able to ambulate to and from bathroom with no SOB. There was no untoward events overnight. Objective - Vital Signs/Intake and Output Vital Signs (last 24 hours): Temp Pulse Resp BP Pulse Ox 97.9 F 90 20 129/80 99 03/03/17 08:08 03/03/17 08:08 03/03/17 08:08 03/03/17 08:08 03/03/17 08:08 - Medications Medications: Current Medications Acetaminophen (Tylenol 325mg Tab) 650 mg PO Q6 PRN PRN Reason: Headache Last Admin: 03/01/17 04:52 Dose: 650 mg Albuterol/Ipratropium (Duoneb 3 Mg/0.5 Mg (3 Ml) Ud) 3 ml INH RQ4 [facility] Last Admin: 03/03/17 07:55 Dose: 3 ml Amlodipine Besylate (Norvasc) 10 mg PO DAILY [facility] Last Admin: 03/02/17 11:37 Dose: 10 mg Aspirin (Ecotrin) 81 mg PO DAILY [facility] Last Admin: 03/02/17 11:39 Dose: 81 mg Atorvastatin Calcium (Lipitor) 40 mg PO HS [facility] Last Admin: 03/02/17 21:28 Dose: 40 mg Bisoprolol Fumarate (Zebeta) 5 mg PO DAILY [facility] Last Admin: 03/02/17 11:40 Dose: 5 mg Chlordiazepoxide (Librium) 25 mg PO Q12 PRN PRN Reason: Symptoms of alcohol withdrawl Clonidine HCl (Catapres) 0.1 mg PO BID [facility] Last Admin: 03/02/17 17:58 Dose: 0.1 mg Clopidogrel Bisulfate (Plavix) 75 mg PO DAILY [facility] Last Admin: 03/02/17 11:40 Dose: 75 mg Escitalopram Oxalate (Lexapro) 10 mg PO DAILY [facility] Last Admin: 03/02/17 11:39 Dose: 10 mg Folic Acid (Folic Acid) 1 mg PO DAILY [facility] Last Admin: 03/02/17 11:39 Dose: 1 mg Gabapentin (Neurontin) 600 mg PO TID [facility] Guaifenesin/Dextromethorphan (Robitussin Dm) 10 ml PO Q6 PRN PRN Reason: Cough Last Admin: 02/28/17 16:22 Dose: 10 ml Ibuprofen (Motrin Tab) 600 mg PO Q8 PRN PRN Reason: Pain, moderate (4-7) Last Admin: 03/02/17 02:13 Dose: 600 mg Labetalol HCl (Trandate) 20 mg IVP Q6H PRN PRN Reason: Systolic Blood Pressure Last Admin: 02/25/17 05:49 Dose: 20 mg Lisinopril (Zestril) 10 mg PO DAILY@1700 [facility] Last Admin: 03/01/17 17:39 Dose: 10 mg Magnesium Oxide (Mag-Ox) 400 mg PO BID [facility] Last Admin: 03/02/17 17:59 Dose: 400 mg Ondansetron HCl (Zofran Inj) 4 mg IVP Q4 PRN PRN Reason: Nausea/Vomiting Last Admin: 02/22/17 18:00 Dose: 4 mg Risperidone (Risperdal Tab) 0.5 mg PO HS [facility] Last Admin: 03/02/17 21:28 Dose: 0.5 mg Fluticasone/Salmeterol (Advair Diskus 500/50) 1 puff IH BID [facility] Last Admin: 03/02/17 17:58 Dose: 1 puff Thiamine HCl (Vitamin B1 Tab) 100 mg PO DAILY [facility] Last Admin: 03/02/17 11:38 Dose: 100 mg - Labs Labs: 03/01/17 04:20 03/01/17 04:20 PT 11.8 Seconds (9.8-13.1) 02/24/17 10:50 INR 1.1 (0.9-1.2) 02/24/17 10:50 APTT 28.6 Seconds (25.6-37.1) 02/24/17 10:50 - Constitutional Appears: No Acute Distress - Head Exam Head Exam: NORMAL INSPECTION - Neurological Exam Neurological Exam: Alert, Awake, CN II-XII Intact, Oriented x3 Neuro motor strength exam: Left Upper Extremity: 5, Right Upper Extremity: 5, Left Lower Extremity: 5, Right Lower Extremity: 5 Additional comments: He is able to answer questions appropriately and follows simple commands. Sensation remains intact. Assessment and Plan (1) Cerebral atherosclerosis Assessment & Plan: Case discussed with Dr. Arita, continue all current medical and physical therapies. Status: Acute (2) Headache Assessment & Plan: Case discussed with Dr. Arita, with his liver enzymes elevated AST (72) and ALT (117), recommends depakote to be discontinued and increase Gabapentin 300 mg PO TID to 600 mg PO TID. Status: Acute (3) Drug abuse Status: Acute
[2017-03-03] MEDS: Magnesium Oxide 400 mg Tab UD PO SCH ×2 (09:58→17:59)
--- NOTE | 2017-03-03 10:56 | CP.PCM.DIS ---
Provider - Provider Date of Admission: 02/22/17 08:54 Attending physician: Yury Martínez MD Primary care physician: Gurwinder Mtz MD Time Spent in preparation of Discharge (in minutes): 30 Hospital Course - Lab Results Lab Results: Micro Results 02/26/17 18:50 Nose MRSA Culture (Admit) - Final MRSA DETECTED 02/22/17 04:00 Blood-Venous Blood Culture - Final NO GROWTH AFTER 5 DAYS 02/22/17 04:00 Blood-Venous Gram Stain - Final TEST NOT PERFORMED 02/22/17 04:51 Blood-Venous Blood Culture - Final NO GROWTH AFTER 5 DAYS 02/22/17 04:51 Blood-Venous Gram Stain - Final TEST NOT PERFORMED 02/24/17 18:38 Naris MRSA Culture (Admit) - Final MRSA NOT DETECTED Most Recent Lab Values WBC 10.8 K/uL (4.8-10.8) 03/01/17 04:20 RBC 4.52 Mil/uL (4.40-5.90) 03/01/17 04:20 Hgb 14.1 g/dL (12.0-18.0) 03/01/17 04:20 Hct 42.8 % (35.0-51.0) 03/01/17 04:20 MCV 94.5 fl (80.0-94.0) H 03/01/17 04:20 MCH 31.2 pg (27.0-31.0) H 03/01/17 04:20 MCHC 33.0 g/dL (33.0-37.0) 03/01/17 04:20 RDW 13.3 % (11.5-14.5) 03/01/17 04:20 Plt Count 169 K/uL (130-400) 03/01/17 04:20 MPV 7.7 fl (7.2-11.7) 02/22/17 04:20 Neut % (Auto) 32.2 % (50.0-75.0) L 02/22/17 04:20 Lymph % (Auto) 29.6 % (20.0-40.0) 02/22/17 04:20 [place] % (Auto) 12.8 % (0.0-10.0) H 02/22/17 04:20 Eos % (Auto) 24.9 % (0.0-4.0) H 02/22/17 04:20 Baso % (Auto) 0.5 % (0.0-2.0) 02/22/17 04:20 Neut # 2.2 K/uL (1.8-7.0) 02/22/17 04:20 Lymph # 2.0 K/uL (1.0-4.3) 02/22/17 04:20 [place] # 0.9 K/uL (0.0-0.8) H 02/22/17 04:20 Eos # 1.7 K/uL (0.0-0.7) H 02/22/17 04:20 Baso # 0.0 K/uL (0.0-0.2) 02/22/17 04:20 Neutrophils % (Manual) 39 % (42-75) L 02/22/17 04:20 Lymphocytes % (Manual) 29 % (20-50) 02/22/17 04:20 Monocytes % (Manual) 6 % (0-10) 02/22/17 04:20 Eosinophils % (Manual) 25 % (0-7) H 02/22/17 04:20 Basophils % (Manual) 1 % (0-2) 02/22/17 04:20 Platelet Estimate Normal (NORMAL) 02/22/17 04:20 Anisocytosis (manual) Slight 02/22/17 04:20 ESR 27 mm/hr (0-20) H 02/23/17 14:33 PT 11.8 Seconds (9.8-13.1) 02/24/17 10:50 INR 1.1 (0.9-1.2) 02/24/17 10:50 APTT 28.6 Seconds (25.6-37.1) 02/24/17 10:50 pCO2 33 mm/Hg (35-45) L 02/24/17 10:03 pO2 82 mm/Hg (80-100) 02/24/17 10:03 HCO3 27.8 mmol/L (21-28) 02/24/17 10:03 ABG pH 7.51 (7.35-7.45) H 02/24/17 10:03 ABG Total CO2 27.3 mmol/L (22-28) 02/24/17 10:03 ABG O2 Saturation 98.9 % (95-98) H 02/24/17 10:03 ABG O2 Content 21.3 ML/dL (15-23) 02/24/17 10:03 ABG Base Excess 3.8 mmol/L (-2.0-3.0) H 02/24/17 10:03 ABG Hemoglobin 15.9 g/dL (11.7-17.4) 02/24/17 10:03 ABG Carboxyhemoglobin 2.2 % (0.5-1.5) H 02/24/17 10:03 POC ABG HHb (Measured) 1.1 % (0.0-5.0) 02/24/17 10:03 ABG Methemoglobin 1.3 % (0.0-3.0) 02/24/17 10:03 ABG O2 Capacity 21.5 mL/dL (16-24) 02/24/17 10:03 Wei Test Yes 02/24/17 10:03 A-a O2 Difference 26.0 mm/Hg 02/24/17 10:03 Hgb O2 Saturation 95.4 % (95.0-98.0) 02/24/17 10:03 FiO2 21.0 % 02/24/17 10:03 Sodium 139 mmol/l (132-148) 03/01/17 04:20 Potassium 4.4 MMOL/L (3.6-5.0) 03/01/17 04:20 Chloride 105 mmol/L (98-107) 03/01/17 04:20 Carbon Dioxide 29 mmol/L (22-30) 03/01/17 04:20 Anion Gap 9 (10-20) L 03/01/17 04:20 BUN 22 mg/dl (9-20) H 03/01/17 04:20 Creatinine 0.9 mg/dl (0.8-1.5) 03/01/17 04:20 Est GFR ( Amer) > 60 03/01/17 04:20 Est GFR (Non-Af Amer) > 60 03/01/17 04:20 Random Glucose 117 mg/dL (75-110) H 03/01/17 04:20 Hemoglobin A1c 5.7 % (4.2-6.5) 02/23/17 12:37 Lactic Acid 1.2 MMOL/L (0.7-2.1) 02/22/17 04:20 Calcium 8.6 mg/dL (8.4-10.2) 03/01/17 04:20 Total Bilirubin 0.3 mg/dl (0.2-1.3) 03/01/17 04:20 Direct Bilirubin 0.4 mg/ml (0.0-0.4) 02/25/17 08:47 AST 72 U/L (17-59) H D 03/01/17 04:20 ALT 117 U/L (21-72) H D 03/01/17 04:20 Alkaline Phosphatase 76 U/L (38-126) 03/01/17 04:20 Total Creatine Kinase 76 U/L (55-170) 02/24/17 12:09 CK-MB (Mass) 1.42 ng/mL (0.0-3.38) 02/24/17 12:09 Troponin I 0.0260 ng/mL (0.00-0.120) 02/24/17 12:09 C-React Prot High Sens 10.63 mg/L (1.00-3.00) H 02/23/17 14:33 NT-Pro-B Natriuret Pep 52.7 pg/ml (0-900) 02/22/17 04:20 Total Protein 6.6 G/DL (6.3-8.2) 03/01/17 04:20 Albumin 3.6 g/dL (3.5-5.0) 03/01/17 04:20 Globulin 3.0 gm/dL (2.2-3.9) 03/01/17 04:20 Albumin/Globulin Ratio 1.2 (1.0-2.1) 03/01/17 04:20 Triglycerides 81 mg/DL (0-149) 02/23/17 12:37 Cholesterol 204 mg/dL (0-199) H 02/23/17 12:37 LDL Cholesterol Direct 126 mg/dL (0-129) 02/23/17 12:37 HDL Cholesterol 60 MG/DL (30-70) 02/23/17 12:37 Vitamin B12 284 pg/mL (239-931) 02/23/17 14:33 25-OH Vitamin D Total 17.8 NG/ML (30.0-100.0) L 02/23/17 16:22 Homocysteine 13.2 umol/L ( <11.4) H 02/23/17 14:33 Thyroxine (T4) 6.41 ug/dl (5.5-11.0) 02/23/17 12:37 Total T3 0.770 nmol/L (1.49-2.60) L 02/23/17 12:37 TSH 3rd Generation 0.10 mIU/ML (0.46-4.68) L 02/23/17 12:37 Urine Color Yellow (YELLOW) 02/22/17 06:00 Urine Clarity Clear (Clear) 02/22/17 06:00 Urine pH 6.0 (5.0-8.0) 02/22/17 06:00 Ur Specific [place] 1.028 (1.003-1.030) 02/22/17 06:00 Urine Protein 30 mg/dL (NEGATIVE) 02/22/17 06:00 Urine Glucose (UA) >=500 mg/dL (Normal) 02/22/17 06:00 Urine Ketones Negative mg/dL (NEGATIVE) 02/22/17 06:00 Urine Blood Moderate (NEGATIVE) 02/22/17 06:00 Urine Nitrate Negative (NEGATIVE) 02/22/17 06:00 Urine Bilirubin Negative (NEGATIVE) 02/22/17 06:00 Urine Urobilinogen 0.2-1.0 mg/dL (0.2-1.0) 02/22/17 06:00 Ur Leukocyte Esterase Neg [place]/uL (Negative) 02/22/17 06:00 Urine RBC (Auto) 4 /hpf (0-3) H 02/22/17 06:00 Urine Microscopic WBC 1 /hpf (0-5) 02/22/17 06:00 Ur Squamous Epith Cells 1 /hpf (0-5) 02/22/17 06:00 Urine Opiates Screen Positive (NEGATIVE) H 02/22/17 06:00 Urine Methadone Screen Negative (NEGATIVE) 02/22/17 06:00 Ur Barbiturates Screen Negative (NEGATIVE) 02/22/17 06:00 Ur Phencyclidine Scrn Negative (NEGATIVE) 02/22/17 06:00 Ur Amphetamines Screen Negative (NEGATIVE) 02/22/17 06:00 U Benzodiazepines Scrn Negative (NEGATIVE) 02/22/17 06:00 U Oth Cocaine Metabols Negative (NEGATIVE) 02/22/17 06:00 U Cannabinoids Screen Negative (NEGATIVE) 02/22/17 06:00 Influenza Typ A,B (EIA) Negative for flu a/b (NEGATIVE) 02/22/17 04:20 Prothrombin Mut Interp see note 02/23/17 12:37 Prothrombin Gene Mutate see note 02/23/17 12:37 Prothromb Gene Review see note 02/23/17 12:37 - Hospital Course Hospital Course: 51 yo ,m, PMhx/o COPD X 5 years,HTN, Gastritis,Hep C presents c/o chest tightness started 2 days ago associated with 4-5 episodes of severe SOB during yesterday and today not alleviated with albuterol pump. Patient reports productive cough for the last month that turned yellowish expectoration for the last 2 days and increased amount of flegm. Pt also c/o subjective fever for the last 7 days. He denies abd pain, diarrhea, rash, recent travel, sick contact. Pt report that stopped smoking 2 weeks ago and drinks ETOH very frequent. LAst time 2 days ago. Patient admitted for COPD exacerbation and during hospitalization he developed ETOH withdrawal, severe Headache, AMS and pt needed ICU transfer. PAtient recovered and has been in telemetry. PAtient cleared by System Development Manager. Hemodynamically stable. Cleared by Neurologist. Depakote discontinued. Patient cleared to go for TCU Diagnosis 1) AMS -resolved (2) COPD exacerbation -resolved Xr No infiltrates Pulmonology consult appreciated.pt cleared (3) Hypertension controlled -bisoprolol,clonidine (4) ETOH withdrawal -resolved -librium q 12 - CIWA 0 (5) Headache -controlled -secondary to ETOh withdrawal,uncontrolled HTN, cerebral atherosclerosis - Neuro consult appreciated -Aspirin, plavix -MRI brain neg (6) DVT prophylaxis Assessment and Plan: Lovenox 40 mg sc Discharge Exam - Head Exam Head Exam: NORMAL INSPECTION - Eye Exam Eye Exam: Normal appearance - Respiratory Exam Respiratory Exam: Clear to PA & Lateral. absent: Rales, Rhonchi - Cardiovascular Exam Cardiovascular Exam: REGULAR RHYTHM, +S1, +S2 - GI/Abdominal Exam GI & Abdominal Exam: Normal Bowel Sounds, Soft. absent: Guarding, Rebound - Extremities Exam Extremities exam: normal inspection - Neurological Exam Neurological exam: Alert, Oriented x3 - Psychiatric Exam Psychiatric exam: Normal Affect, Normal Mood - Skin Skin Exam: Intact Discharge Plan - Follow Up Plan Condition: FAIR Disposition: HOME/ ROUTINE Instructions: COPD (Chronic Obstructive Pulmonary Disease) (DC) Referrals: Gurwinder Mtz MD [Primary Care Provider] - Jose Juan Saucedo MD [Staff Provider] -
[2017-03-03] MEDS: Fluticasone-Salmeterol 500-50mcg Diskus IH SCH ×2 (11:18→17:59)
[2017-03-03 16:35] VITALS: RESP 16
[2017-03-03 20:18] VITALS: BP 113/73; PULSE 82; TEMP 98.3; O2SAT 98
== END 2017-03-03 21:30 | DRG 88 ==
LOC: H.ER 03:14 → H.ERHOLD 05:27 → H.MEDSURG1 06:45 → OBSVTOIN 08:54 → H.TEL 02-23 22:52 → H.ICU/CCU 02-24 13:43 → H.TEL 02-26 14:13
PROVIDERS: ADMIT Internal Medicine; ATTEND Internal Medicine
PROC: 3E0F73Z Introduction of Anti-inflammatory into Respiratory Tract, Via Natural or Artificial Opening (ICD-10-PCS; principal; 2017-02-22)
DX: J44.1 Chronic obstructive pulmonary disease with (acute) exacerbation (principal); F10.231 Alcohol dependence with withdrawal delirium; F11.10 Opioid abuse, uncomplicated; B19.20 Unspecified viral hepatitis C without hepatic coma; J20.9 Acute bronchitis, unspecified; J44.0 Chronic obstructive pulmonary disease with (acute) lower respiratory infection; I67.2 Cerebral atherosclerosis; E78.5 Hyperlipidemia, unspecified; I10 Essential (primary) hypertension; K29.70 Gastritis, unspecified, without bleeding; M17.0 Bilateral primary osteoarthritis of knee; N40.0 Benign prostatic hyperplasia without lower urinary tract symptoms; F17.210 Nicotine dependence, cigarettes, uncomplicated; Z86.73 Personal history of transient ischemic attack (TIA), and cerebral infarction without residual deficits; Z79.82 Long term (current) use of aspirin

== ENCOUNTER 2017-03-03 12:44 | Inpatient (IN) | payer MEDICAID ==
[2017-03-04] MEDS: Albuterol-Ipratrop 3 mg / 0.5 (3 ml) UD INH SCH ×6 (00:22→19:54)
--- NOTE | 2017-03-04 07:11 | CP.PCM.PN ---
Subjective - Date & Time of Evaluation Date of Evaluation: 03/04/17 Time of Evaluation: 07:07 - Subjective Subjective: Mr. Ledesma was seen and examined at the bedside. He is alert, oriented. He states of experiencing headache characterize by generalize, with pain scale 2/10, non- radiating to any parts of his body. He denies any weakness, lightheadedness, dizziness, nausea, or vomiting. He is able to follow simple commands.There was no untoward events overnight. Objective - Vital Signs/Intake and Output Vital Signs (last 24 hours): Temp Pulse Resp BP Pulse Ox 83 18 99 03/03/17 22:50 03/03/17 22:50 03/03/17 22:50 - Medications Medications: Current Medications Acetaminophen (Tylenol 325mg Tab) 650 mg PO Q6 PRN PRN Reason: Headache Albuterol/Ipratropium (Duoneb 3 Mg/0.5 Mg (3 Ml) Ud) 3 ml INH RQ4 [facility] Last Admin: 03/04/17 05:01 Dose: 3 ml Amlodipine Besylate (Norvasc) 10 mg PO DAILY [facility] Aspirin (Ecotrin) 81 mg PO DAILY [facility] Atorvastatin Calcium (Lipitor) 40 mg PO DAILY [facility] Bisoprolol Fumarate (Zebeta) 5 mg PO DAILY [facility] Chlordiazepoxide (Librium) 25 mg PO Q12 PRN PRN Reason: Symptoms of alcohol withdrawl Clonidine HCl (Catapres) 0.1 mg PO BID [facility] Clopidogrel Bisulfate (Plavix) 75 mg PO DAILY [facility] Escitalopram Oxalate (Lexapro) 10 mg PO DAILY [facility] Folic Acid (Folic Acid) 1 mg PO DAILY [facility] Gabapentin (Neurontin) 600 mg PO TID [facility] Guaifenesin/Dextromethorphan (Robitussin Dm) 10 ml PO Q6 PRN PRN Reason: cough Lisinopril (Zestril) 10 mg PO DAILY [facility] Magnesium Oxide (Mag-Ox) 400 mg PO BID [facility] Pneumococcal Polyvalent Vaccine (Pneumovax 23 Vaccine) 0.5 ml IM .ONCE ONE Stop: 03/04/17 09:01 Risperidone (Risperdal Tab) 0.5 mg PO HS [facility] Last Admin: 03/03/17 23:00 Dose: 0.5 mg Fluticasone/Salmeterol (Advair Diskus 500/50) 1 puff IH BID [facility] Thiamine HCl (Vitamin B1 Tab) 100 mg PO DAILY [facility] - Constitutional Appears: No Acute Distress - Head Exam Head Exam: NORMAL INSPECTION - Neurological Exam Neurological Exam: Alert, Awake, Oriented x3 Neuro motor strength exam: Left Upper Extremity: 4, Right Upper Extremity: 4, Left Lower Extremity: 4, Right Lower Extremity: 4 Additional comments: He is able to answer questions appropriately and follow simple commands. Sensation remains intact. Assessment and Plan (1) Cerebral atherosclerosis Assessment & Plan: Case discussed with Dr. Arita, continue all current medical regimen. Gabapentin was increase yesterday from 300 mg to 600 mg TID to alleviate headache. Status: Acute
--- NOTE | 2017-03-04 08:30 | CP.PCM.HP ---
History of Present Illness - History of Present Illness History of Present Illness: 51 yo ,m, PMhx/o COPD X 5 years,HTN, Gastritis,Hep C presents recently admitted to hospital for COPD exacerbation ( Cough, SOB, wheezing) . 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 He denies abd pain, diarrhea, rash, recent travel, sick contact. Pt report that stopped smoking 2 weeks ago and drinks ETOH very frequent. 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 During hospitalization he developed ETOH withdrawal, severe Headache, AMS and pt needed ICU transfer. PAtient recovered and has been in telemetry. PAtient cleared by Marketing And Communications Officer. Hemodynamically stable. Cleared by Neurologist.Patient evaluated for psych and on treatment for phsycotic disorder associated with ETOH abuse. Depakote discontinued. Patient cleared to go for TCU to c/w rehab. Patient seen and examined bedside with Dr Martínez in TCU. Patient c/o occs frontal headache, alleviated spontaneously. Patient under treatment with Gabapentin as Neurologist recommendation. HE denies blurry vision, dizziness, chest pain, SOB , fever. Reports good appetite. stooling and urinating normal Present on Admission - Present on Admission Any Indicators Present on Admission: No History of DVT/PE: No History of Uncontrolled Diabetes: No Urinary Catheter: No Decubitus Ulcer Present: No Review of Systems - Constitutional Constitutional: As Per HPI - Cardiovascular Cardiovascular: As Per HPI - Respiratory Respiratory: As Per HPI - Gastrointestinal Gastrointestinal: As Per HPI - Musculoskeletal Musculoskeletal: As Per HPI - Neurological Neurological: Headaches - Psychiatric Psychiatric: As Per HPI Past Patient History - Infectious Disease Hx of Infectious Diseases: None - Past Medical History & Family History Past Medical History?: Yes - Past Social History Smoking Status: Heavy Smoker > 10 Cigarettes Daily - CARDIAC Hx Hypercholesterolemia: Yes Hx Hypertension: Yes - PULMONARY Hx Asthma: Yes Hx Bronchitis: Yes Hx Chronic Obstructive Pulmonary Disease (COPD): Yes - NEUROLOGICAL HX Cerebrovascular Accident: Yes - HEENT Hx HEENT Problems: Yes - RENAL Hx Chronic Kidney Disease: No - ENDOCRINE/METABOLIC Hx Endocrine Disorders: No - HEMATOLOGICAL/ONCOLOGICAL Hx Blood Disorders: Yes Hx AIDS: No Hx Hepatitis C: Yes Hx Human Immunodeficiency Virus (HIV): No - INTEGUMENTARY Hx Dermatological Problems: No - MUSCULOSKELETAL/RHEUMATOLOGICAL Hx Arthritis: Yes (KNEES) Hx Back Pain: Yes Hx Falls: No Hx Herniated Disk: Yes - GASTROINTESTINAL Hx Gastritis: Yes - GENITOURINARY/GYNECOLOGICAL Hx Genitourinary Disorders: Yes Other/Comment: Enlarged Prostate - PSYCHIATRIC Hx Psychophysiologic Disorder: No Hx Depression: Yes Hx Substance Use: Yes (heroin abuse) - SURGICAL HISTORY Hx Surgeries: No - ANESTHESIA Hx Anesthesia: No Hx Anesthesia Reactions: No Hx Malignant Hyperthermia: No Meds Allergies/Adverse Reactions: Allergies Allergy/AdvReac Type Severity Reaction Status Date / Time No Known Allergies Allergy Verified 12/24/16 20:53 Physical Exam - Constitutional Appears: No Acute Distress - Head Exam Head Exam: ATRAUMATIC, NORMOCEPHALIC - Eye Exam Eye Exam: Normal appearance - ENT Exam ENT Exam: Mucous Membranes Moist - Neck Exam Neck exam: Positive for: Normal Inspection - Respiratory Exam Respiratory Exam: Decreased Breath Sounds (B/L lung bases). absent: Rales, Rhonchi, Wheezes - Cardiovascular Exam Cardiovascular Exam: REGULAR RHYTHM, +S1, +S2 - GI/Abdominal Exam GI & Abdominal Exam: Normal Bowel Sounds, Soft. absent: Guarding, Rebound, Tenderness - Extremities Exam Extremities exam: Positive for: normal inspection. Negative for: pedal edema - Neurological Exam Neurological exam: Alert, Normal Gait, Oriented x3 - Psychiatric Exam Psychiatric exam: Normal Affect, Normal Mood - Skin Skin Exam: Intact Results - Vital Signs Recent Vital Signs: Last Vital Signs Temp 97.7 F 03/04/17 08:13 Pulse 76 03/04/17 08:13 Resp 20 03/04/17 08:13 BP 122/77 03/04/17 08:13 Pulse Ox 99 03/04/17 08:13 Assessment & Plan - Assessment and Plan (Free Text) Plan: 51 yo ,m, PMhx/o COPD X 5 years,HTN, Gastritis admitted in TCU for rehab COPD (1) COPD exacerbation -resolved Xr No infiltrates Pulmonology consult appreciated.pt cleared (2) Hypertension controlled -bisoprolol,clonidine (3) ETOH withdrawal -resolved (4) Headache -controlled -secondary to ETOh withdrawal,uncontrolled HTN, cerebral atherosclerosis - Neuro consult appreciated -Aspirin, plavix -MRI brain neg (5) DVT prophylaxis Lovenox 40 mg sc
[2017-03-04] MEDS: Fluticasone-Salmeterol 500-50mcg Diskus IH SCH ×2 (08:37→16:45)
[2017-03-04] MEDS: Magnesium Oxide 400 mg Tab UD PO SCH ×2 (08:42→16:45)
[2017-03-04] MEDS ORDERED: Pneumococcal 23-Valent Vaccine IM ONE (09:00)
--- NOTE | 2017-03-04 13:44 | CP.PCM.CON ---
History of Present Illness - History of Present Illness History of Present Illness: Psychiatry consult note HPI: 51 y/o male with a past medical history of COPD, Hypertension, Hepatitis C, and chronic back pain, presented to the ED complaining chest tightness, admitted for COPD exacerbation, now on TCU. Patient continues to report intermittent feelings of depression but states that his mood has improved since initial assessment. He continues to have intermittent auditory hallucinations, most recently this morning saying "what are you doing with yourself? Get out of here." He denies intention to listen to the voices. He denies CAH to harm himself. No current VH. NO paranoia/delusions. Patient reports that he uses illicit percocet purchased from the streets and drinks ETOH daily. He denies current signs/symptoms of ETOH w/drawal. PMD: Dr. Gurwinder Mtz Family history: mother (breast CA) PMH: Asthma, Bronchitis, COPD, Gastritis, Hypertension, Hepatitis C, and chronic back pain PPHx: Denies history of treatment w/ psychiatric medications; patient has a history of opioid abuse Surg Hx: denied All: NKDA Social: +drinks 2-4 drinks/day, uses percocet purchased from the street; denies IV drug use, denies cocaine use MSE: A + O x 3, calm, cooperative, speech normal rate/rhythm/volume, mood "anxious", affect- full range, no current AH/VH/paranoia/delusions, I/J fair, good impulse control. 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 -Psychoeducation provided re: alcohol and opiate abuse -Can discontinue Librium; no signs/symptoms of ETOH withdrawal -Continue Lexapro 10 mg PO Daily, Increase Risperdal to 1 mg PO HS -Outpatient psychiatry follow-up upon discharge -No 1:1 indicated Past Patient History - Infectious Disease Hx of Infectious Diseases: None - Past Medical History & Family History Past Medical History?: Yes - Past Social History Smoking Status: Heavy Smoker > 10 Cigarettes Daily - CARDIAC Hx Cardiac Disorders: No Hx Congestive Heart Failure: No Hx Hypercholesterolemia: No Hx Hypertension: Yes - PULMONARY Hx Chronic Obstructive Pulmonary Disease (COPD): Yes - NEUROLOGICAL HX Cerebrovascular Accident: Yes - HEENT Hx HEENT Problems: Yes - RENAL Hx Chronic Kidney Disease: No - ENDOCRINE/METABOLIC Hx Endocrine Disorders: No - HEMATOLOGICAL/ONCOLOGICAL Hx Blood Disorders: Yes Hx AIDS: No Hx Hepatitis C: Yes Hx Human Immunodeficiency Virus (HIV): No - INTEGUMENTARY Hx Dermatological Problems: No - MUSCULOSKELETAL/RHEUMATOLOGICAL Hx Arthritis: Yes Hx Rheumatoid Arthritis: Yes - GASTROINTESTINAL Hx Gastritis: Yes - GENITOURINARY/GYNECOLOGICAL Hx Genitourinary Disorders: Yes Other/Comment: Enlarged Prostate - PSYCHIATRIC Hx Psychophysiologic Disorder: No Hx Depression: Yes Hx Substance Use: Yes (heroin abuse) - SURGICAL HISTORY Hx Surgeries: No - ANESTHESIA Hx Anesthesia: No Hx Anesthesia Reactions: No Hx Malignant Hyperthermia: No Meds Allergies/Adverse Reactions: Allergies Allergy/AdvReac Type Severity Reaction Status Date / Time No Known Allergies Allergy Verified 12/24/16 20:53 - Medications Medications: Current Medications Acetaminophen (Tylenol 325mg Tab) 650 mg PO Q6 PRN PRN Reason: Headache Albuterol/Ipratropium (Duoneb 3 Mg/0.5 Mg (3 Ml) Ud) 3 ml INH RQ4 [facility] Last Admin: 03/04/17 11:48 Dose: 3 ml Amlodipine Besylate (Norvasc) 10 mg PO DAILY [facility] Last Admin: 03/04/17 08:42 Dose: 10 mg Aspirin (Ecotrin) 81 mg PO DAILY [facility] Last Admin: 03/04/17 08:39 Dose: 81 mg Atorvastatin Calcium (Lipitor) 40 mg PO DAILY [facility] Last Admin: 03/04/17 08:42 Dose: 40 mg Bisoprolol Fumarate (Zebeta) 5 mg PO DAILY [facility] Last Admin: 03/04/17 08:41 Dose: 5 mg Clonidine HCl (Catapres) 0.1 mg PO BID [facility] Last Admin: 03/04/17 08:42 Dose: Not Given Clopidogrel Bisulfate (Plavix) 75 mg PO DAILY [facility] Last Admin: 03/04/17 08:41 Dose: 75 mg Escitalopram Oxalate (Lexapro) 10 mg PO DAILY [facility] Last Admin: 03/04/17 08:41 Dose: 10 mg Folic Acid (Folic Acid) 1 mg PO DAILY [facility] Last Admin: 03/04/17 08:41 Dose: 1 mg Gabapentin (Neurontin) 600 mg PO TID [facility] Last Admin: 03/04/17 12:03 Dose: 600 mg Guaifenesin/Dextromethorphan (Robitussin Dm) 10 ml PO Q6 PRN PRN Reason: cough Lisinopril (Zestril) 10 mg PO DAILY [facility] Last Admin: 03/04/17 08:42 Dose: 10 mg Magnesium Oxide (Mag-Ox) 400 mg PO BID [facility] Last Admin: 03/04/17 08:42 Dose: 400 mg Risperidone (Risperdal Tab) 1 mg PO HS [facility] Fluticasone/Salmeterol (Advair Diskus 500/50) 1 puff IH BID [facility] Last Admin: 03/04/17 08:37 Dose: 1 unit Thiamine HCl (Vitamin B1 Tab) 100 mg PO DAILY [facility] Last Admin: 03/04/17 08:41 Dose: 100 mg Results - Vital Signs Recent Vital Signs: Last Vital Signs Temp 97.7 F 03/04/17 08:13 Pulse 76 03/04/17 08:42 Resp 20 03/04/17 08:13 BP 117/53 L 03/04/17 11:42 Pulse Ox 99 03/04/17 08:13
[2017-03-05] MEDS: Albuterol-Ipratrop 3 mg / 0.5 (3 ml) UD INH SCH ×7 (00:14→23:11)
[2017-03-05] MEDS: Fluticasone-Salmeterol 500-50mcg Diskus IH SCH ×3 (08:43→17:42)
[2017-03-05] MEDS: Magnesium Oxide 400 mg Tab UD PO SCH ×2 (08:45→16:58)
--- NOTE | 2017-03-05 09:14 | PN ---
DATE: 03/05/2017 SUBJECTIVE: The patient is seen and examined. Interim events noted. The patient remains in Transitional Care Unit. Feels okay. Seems to be getting stronger. No new complaint of chest pain. No shortness of breath. Does have chronic back pain. PHYSICAL EXAMINATION: GENERAL: The patient is in no acute distress. VITAL SIGNS: Stable. HEART: S1 and S2, normal and regular. LUNGS: Good bilateral air exchange. ABDOMEN: Soft, nontender. EXTREMITIES: No edema. No calf swelling. No tenderness. No acute ischemia. CENTRAL NERVOUS SYSTEM: Essentially unchanged. DIAGNOSTIC DATA: Available diagnostic data reviewed. ASSESSMENT AND PLAN: Overall, the patient's general medical condition is stable. General condition is improving. The patient seems to be getting stronger. Plan as ordered. Yury Martínez MD
--- NOTE | 2017-03-05 13:07 | CP.PCM.CON ---
History of Present Illness - History of Present Illness History of Present Illness: 51 YR OLD MALE KNOWN TO ME FROM HIS ADMISSION TO THE MEDICAL FLOOR FOR EXACERBATION OF COPD AND ALCOHOL WITHDRAWAL WITH DTS.HE IS REFERRED FOR FOLLOWUP PULMONARY EVALUATION.HE IS IN NO APPARENT DISTRESS.NO CHEST PAINS/ SOB.NO COUGH ALERT AND ORIENTED X 3. Past Patient History - Infectious Disease Hx of Infectious Diseases: None - Past Medical History & Family History Past Medical History?: Yes - Past Social History Smoking Status: Heavy Smoker > 10 Cigarettes Daily - CARDIAC Hx Hypercholesterolemia: Yes Hx Hypertension: Yes - PULMONARY Hx Asthma: Yes Hx Bronchitis: Yes Hx Chronic Obstructive Pulmonary Disease (COPD): Yes - NEUROLOGICAL HX Cerebrovascular Accident: Yes - HEENT Hx HEENT Problems: Yes - RENAL Hx Chronic Kidney Disease: No - ENDOCRINE/METABOLIC Hx Endocrine Disorders: No - HEMATOLOGICAL/ONCOLOGICAL Hx Blood Disorders: Yes Hx AIDS: No Hx Hepatitis C: Yes Hx Human Immunodeficiency Virus (HIV): No - INTEGUMENTARY Hx Dermatological Problems: No - MUSCULOSKELETAL/RHEUMATOLOGICAL Hx Arthritis: Yes (KNEES) Hx Back Pain: Yes Hx Falls: No Hx Herniated Disk: Yes - GASTROINTESTINAL Hx Gastritis: Yes - GENITOURINARY/GYNECOLOGICAL Hx Genitourinary Disorders: Yes Other/Comment: Enlarged Prostate - PSYCHIATRIC Hx Psychophysiologic Disorder: No Hx Depression: Yes Hx Substance Use: Yes (heroin abuse) - SURGICAL HISTORY Hx Surgeries: No - ANESTHESIA Hx Anesthesia: No Hx Anesthesia Reactions: No Hx Malignant Hyperthermia: No Meds Allergies/Adverse Reactions: Allergies Allergy/AdvReac Type Severity Reaction Status Date / Time No Known Allergies Allergy Verified 12/24/16 20:53 - Medications Medications: Current Medications Acetaminophen (Tylenol 325mg Tab) 650 mg PO Q6 PRN PRN Reason: Headache Albuterol/Ipratropium (Duoneb 3 Mg/0.5 Mg (3 Ml) Ud) 3 ml INH RQ4 [facility] Last Admin: 03/05/17 11:56 Dose: 3 ml Amlodipine Besylate (Norvasc) 10 mg PO DAILY [facility] Last Admin: 03/05/17 08:45 Dose: 10 mg Aspirin (Ecotrin) 81 mg PO DAILY [facility] Last Admin: 03/05/17 08:44 Dose: 81 mg Atorvastatin Calcium (Lipitor) 40 mg PO DAILY [facility] Last Admin: 03/05/17 08:45 Dose: Not Given Bisoprolol Fumarate (Zebeta) 5 mg PO DAILY [facility] Last Admin: 03/05/17 08:46 Dose: 5 mg Clonidine HCl (Catapres) 0.1 mg PO BID [facility] Last Admin: 03/05/17 08:44 Dose: Not Given Clopidogrel Bisulfate (Plavix) 75 mg PO DAILY [facility] Last Admin: 03/05/17 08:45 Dose: 75 mg Escitalopram Oxalate (Lexapro) 10 mg PO DAILY [facility] Last Admin: 03/05/17 08:45 Dose: 10 mg Folic Acid (Folic Acid) 1 mg PO DAILY [facility] Last Admin: 03/05/17 08:45 Dose: 1 mg Gabapentin (Neurontin) 600 mg PO TID [facility] Last Admin: 03/05/17 12:22 Dose: 600 mg Guaifenesin/Dextromethorphan (Robitussin Dm) 10 ml PO Q6 PRN PRN Reason: cough Ibuprofen (Motrin Tab) 600 mg PO Q6 PRN PRN Reason: Headache Last Admin: 03/05/17 00:36 Dose: 600 mg Lisinopril (Zestril) 10 mg PO DAILY [facility] Last Admin: 03/05/17 08:46 Dose: 10 mg Magnesium Oxide (Mag-Ox) 400 mg PO BID [facility] Last Admin: 03/05/17 08:45 Dose: 400 mg Risperidone (Risperdal Tab) 1 mg PO HS [facility] Last Admin: 03/04/17 21:48 Dose: 1 mg Fluticasone/Salmeterol (Advair Diskus 500/50) 1 puff IH BID [facility] Last Admin: 03/05/17 08:43 Dose: 1 unit Thiamine HCl (Vitamin B1 Tab) 100 mg PO DAILY [facility] Last Admin: 03/05/17 08:46 Dose: 100 mg Physical Exam - Constitutional Appears: No Acute Distress - Head Exam Head Exam: ATRAUMATIC, NORMAL INSPECTION, NORMOCEPHALIC - Eye Exam Eye Exam: EOMI, Normal appearance, PERRL Pupil Exam: NORMAL ACCOMODATION, PERRL - ENT Exam ENT Exam: Mucous Membranes Moist, Normal Exam - Neck Exam Neck exam: Positive for: Normal Inspection - Respiratory Exam Respiratory Exam: Clear to Auscultation Bilateral, NORMAL BREATHING PATTERN - Cardiovascular Exam Cardiovascular Exam: REGULAR RHYTHM - GI/Abdominal Exam GI & Abdominal Exam: Normal Bowel Sounds, Soft. absent: Tenderness - Rectal Exam Rectal Exam: NORMAL INSPECTION - Extremities Exam Extremities exam: Positive for: normal inspection - Back Exam Back exam: NORMAL INSPECTION - Neurological Exam Neurological exam: Alert, CN II-XII Intact, Normal Gait, Oriented x3, Reflexes Normal - Psychiatric Exam Psychiatric exam: Normal Affect, Normal Mood - Skin Skin Exam: Dry, Intact, Normal Color, Warm Results - Vital Signs Recent Vital Signs: Last Vital Signs Temp 97.7 F 03/05/17 12:05 Pulse 75 03/05/17 12:05 Resp 20 03/05/17 12:05 BP 122/80 03/05/17 12:05 Pulse Ox 96 03/05/17 12:05 Assessment & Plan - Assessment and Plan (Free Text) Assessment: COPD STABLE ALCOHOL WITHDRAWAL RESOLVED Plan: NO FURTHER PULMONARY INTERVENTION FOR NOW WILL SIGN OFF CASE AND SEE AGAIN AT YOUR REQUEST
[2017-03-05] MEDS: guaiFENesin DM 200 mg-20 mg/10 ml UD PO PRN (23:08)
[2017-03-06] MEDS: Oxycodone/Acetaminophen 5/325 mg Tab PO PRN ×3 (00:16→22:58)
[2017-03-06] MEDS: Albuterol-Ipratrop 3 mg / 0.5 (3 ml) UD INH SCH ×5 (04:38→19:14)
[2017-03-06] MEDS: Fluticasone-Salmeterol 500-50mcg Diskus IH SCH ×2 (09:15→16:32)
[2017-03-06] MEDS: Lidocaine 5% Patch TD SCH (09:17)
[2017-03-06] MEDS: Magnesium Oxide 400 mg Tab UD PO SCH ×2 (09:18→16:32)
--- NOTE | 2017-03-06 10:39 | PN ---
DATE: 03/06/2017 SUBJECTIVE: Patient seen and examined. Interim events noted. Patient feels okay and was able to do his ADLs, but had an episode of left hip pain which patient had before. Currently no pain. PHYSICAL EXAMINATION: GENERAL: Patient is in no acute distress. VITAL SIGNS: Stable. HEART: S1 and S2, normal and regular. LUNGS: Good bilateral air exchange. ABDOMEN: Soft, nontender. EXTREMITIES: No edema. No calf swelling. No tenderness. No acute ischemia. No sign of acute fracture or dislocation at right hip joint. DIAGNOSTIC DATA: Available diagnostic data reviewed. ASSESSMENT AND PLAN: Overall, patient is clinically stable. Plan as ordered. Yury Martínez MD
[2017-03-06] MEDS: guaiFENesin DM 200 mg-20 mg/10 ml UD PO PRN (22:59)
[2017-03-07] MEDS: Albuterol-Ipratrop 3 mg / 0.5 (3 ml) UD INH SCH ×7 (00:59→23:36)
[2017-03-07 06:56] LABS: BASO % 0.5 % (0.0-2.0); EOS # 0.7 K/uL (0.0-0.7); EOS % 8.6 % (0.0-4.0); HEMOGLOBIN 12.7 g/dL (12.0-18.0); LYMPH # 2.1 K/uL (1.0-4.3); MEAN CELL VOLUME 93.4 fl (80.0-94.0); MEAN CORPUSCULAR HEMOGLOBIN 32.1 pg (27.0-31.0); MEAN CORPUSCULAR HGB CONC 34.4 g/dL (33.0-37.0); MEAN PLATELET VOLUME 7.1 fl (7.2-11.7); MONO # 0.6 K/uL (0.0-0.8); MONO % 7.4 % (0.0-10.0); NEUT % 58.5 % (50.0-75.0); NRBC % 0.1 % (0.0-0.0); RBC 3.97 Mil/uL (4.40-5.90); WHITE BLOOD COUNT 8.6 K/uL (4.8-10.8)
[2017-03-07 07:18] LABS: ALB/GLOB RATIO 1.1 (1.0-2.1); ALBUMIN 3.5 g/dL (3.5-5.0); ALT/SGPT 83 U/L (21-72); AST/SGOT 51 U/L (17-59); BLOOD UREA NITROGEN 28 mg/dl (9-20); CALCIUM 9.1 mg/dL (8.4-10.2); GFR AFRICAN-AMERICAN > 60; GFR NON-AFRICAN AMERICAN > 60
[2017-03-07] MEDS: Fluticasone-Salmeterol 500-50mcg Diskus IH SCH ×2 (08:50→16:32)
[2017-03-07] MEDS: Lidocaine 5% Patch TD SCH (08:52)
[2017-03-07] MEDS: Magnesium Oxide 400 mg Tab UD PO SCH ×2 (08:52→16:32)
[2017-03-07] MEDS ORDERED: Acetaminophen-Codeine 300/30 mg Tab PO PRN (09:04)
--- NOTE | 2017-03-07 10:01 | PN ---
DATE: 03/07/2017 SUBJECTIVE: Patient seen and examined. Interim events noted. Patient remains in Transitional Care Unit. Feels okay. Complains of occasional pains and aches. No new complaint of chest pain or shortness of breath. PHYSICAL EXAMINATION: GENERAL: Patient is in no acute distress. VITAL SIGNS: Stable. HEART: S1 and S2, normal and regular. LUNGS: Good bilateral air exchange. ABDOMEN: Soft and nontender. EXTREMITIES: No edema. No calf swelling. No tenderness. No acute ischemia. CENTRAL NERVOUS SYSTEM: Essentially unchanged. DIAGNOSTIC DATA: Available diagnostic data reviewed. CBC and CMP are acceptable. ASSESSMENT AND PLAN: Overall, patient is clinically stable. Plan as ordered. Yury Martínez MD
[2017-03-08] MEDS: Albuterol-Ipratrop 3 mg / 0.5 (3 ml) UD INH SCH ×6 (04:53→23:48)
--- NOTE | 2017-03-08 07:31 | CP.PCM.PN ---
Subjective - Date & Time of Evaluation Date of Evaluation: 03/08/17 Time of Evaluation: 07:27 - Subjective Subjective: MeLeanne martino was seen and examined at the bedside. He is alert, oriented in all spheres. He is able to participate in a pleasant conversation. He claims of blurred vision seeing objects from a distance. He also states of seeing clear objects in a close distance.He further states of using reading glasses.He further states of experiencing continuous dull headache, generalized with pain scale of 1/10. He was able to follow simple commands. There was no untoward events overnight. Objective - Vital Signs/Intake and Output Vital Signs (last 24 hours): Temp Pulse Resp BP Pulse Ox 97.7 F 77 20 101/60 97 03/07/17 19:57 03/07/17 19:57 03/07/17 19:57 03/07/17 19:57 03/07/17 19:57 - Medications Medications: Current Medications Acetaminophen (Tylenol 325mg Tab) 650 mg PO Q6 PRN PRN Reason: Headache Acetaminophen/Codeine Phosphate (Tylenol/Codeine 300 Mg/30 Mg) 1 tab PO Q6 PRN PRN Reason: Pain, severe (8-10) Last Admin: 03/07/17 09:14 Dose: 1 tab Albuterol/Ipratropium (Duoneb 3 Mg/0.5 Mg (3 Ml) Ud) 3 ml INH RQ4 [facility] Last Admin: 03/08/17 07:24 Dose: 3 ml Amlodipine Besylate (Norvasc) 10 mg PO DAILY [facility] Last Admin: 03/07/17 08:52 Dose: 10 mg Aspirin (Ecotrin) 81 mg PO DAILY [facility] Last Admin: 03/07/17 08:51 Dose: 81 mg Atorvastatin Calcium (Lipitor) 40 mg PO DAILY [facility] Last Admin: 03/07/17 08:52 Dose: 40 mg Bisoprolol Fumarate (Zebeta) 5 mg PO DAILY [facility] Last Admin: 03/07/17 08:53 Dose: 5 mg Clonidine HCl (Catapres) 0.1 mg PO BID [facility] Last Admin: 03/07/17 16:32 Dose: 0.1 mg Clopidogrel Bisulfate (Plavix) 75 mg PO DAILY [facility] Last Admin: 03/07/17 08:52 Dose: 75 mg Escitalopram Oxalate (Lexapro) 10 mg PO DAILY [facility] Last Admin: 03/07/17 08:51 Dose: 10 mg Folic Acid (Folic Acid) 1 mg PO DAILY [facility] Last Admin: 03/07/17 08:51 Dose: 1 mg Gabapentin (Neurontin) 600 mg PO TID [facility] Last Admin: 03/07/17 16:33 Dose: 600 mg Guaifenesin/Dextromethorphan (Robitussin Dm) 10 ml PO Q6 PRN PRN Reason: cough Last Admin: 03/06/17 22:59 Dose: 10 ml Ibuprofen (Motrin Tab) 600 mg PO Q6 PRN PRN Reason: Headache Last Admin: 03/05/17 20:20 Dose: 600 mg Lidocaine (Lidoderm) 1 ea TD DAILY [facility] Last Admin: 03/07/17 08:52 Dose: 1 ea Lisinopril (Zestril) 10 mg PO DAILY [facility] Last Admin: 03/07/17 08:53 Dose: 10 mg Magnesium Oxide (Mag-Ox) 400 mg PO BID [facility] Last Admin: 03/07/17 16:32 Dose: 400 mg Risperidone (Risperdal Tab) 1 mg PO HS [facility] Last Admin: 03/07/17 21:48 Dose: 1 mg Fluticasone/Salmeterol (Advair Diskus 500/50) 1 puff IH BID [facility] Last Admin: 03/07/17 16:32 Dose: 1 unit Thiamine HCl (Vitamin B1 Tab) 100 mg PO DAILY [facility] Last Admin: 03/07/17 08:53 Dose: 100 mg - Labs Labs: 03/07/17 06:00 03/07/17 06:00 - Constitutional Appears: No Acute Distress - Head Exam Head Exam: NORMAL INSPECTION - Neurological Exam Neurological Exam: Alert, Awake, Oriented x3 Neuro motor strength exam: Left Upper Extremity: 5, Right Upper Extremity: 5, Left Lower Extremity: 5, Right Lower Extremity: 5 Additional comments: Neurological unchanged from previous examination. Assessment and Plan (1) Cerebral atherosclerosis Assessment & Plan: Case discussed wiayesha Arita, continue all current medical, physical regimen. If headache worsen to repeat CT of the head without contrast. Status: Acute
[2017-03-08] MEDS: Fluticasone-Salmeterol 500-50mcg Diskus IH SCH ×2 (08:38→17:14)
[2017-03-08] MEDS: Lidocaine 5% Patch TD SCH (08:39)
[2017-03-08] MEDS: Magnesium Oxide 400 mg Tab UD PO SCH ×2 (08:40→17:15)
--- NOTE | 2017-03-08 12:21 | CP.PCM.HP ---
History of Present Illness - History of Present Illness History of Present Illness: 51 yr old M admitted to TCU for rehabilitation s/p treatment of COPD exacerbation and psych disorder associated with Etoh abuse. Patient tolerated physical therapy well as well as psych treatment. Patient is medically stable for discharge. Instruction given to follow up with PMD and psych within 1 week. Past Patient History - Infectious Disease Hx of Infectious Diseases: None - Past Medical History & Family History Past Medical History?: Yes - Past Social History Smoking Status: Heavy Smoker > 10 Cigarettes Daily - CARDIAC Hx Hypercholesterolemia: Yes Hx Hypertension: Yes - PULMONARY Hx Asthma: Yes Hx Bronchitis: Yes Hx Chronic Obstructive Pulmonary Disease (COPD): Yes - NEUROLOGICAL HX Cerebrovascular Accident: Yes - HEENT Hx HEENT Problems: Yes - RENAL Hx Chronic Kidney Disease: No - ENDOCRINE/METABOLIC Hx Endocrine Disorders: No - HEMATOLOGICAL/ONCOLOGICAL Hx Blood Disorders: Yes Hx AIDS: No Hx Hepatitis C: Yes Hx Human Immunodeficiency Virus (HIV): No - INTEGUMENTARY Hx Dermatological Problems: No - MUSCULOSKELETAL/RHEUMATOLOGICAL Hx Arthritis: Yes (KNEES) Hx Back Pain: Yes Hx Falls: No Hx Herniated Disk: Yes - GASTROINTESTINAL Hx Gastritis: Yes - GENITOURINARY/GYNECOLOGICAL Hx Genitourinary Disorders: Yes Other/Comment: Enlarged Prostate - PSYCHIATRIC Hx Psychophysiologic Disorder: No Hx Depression: Yes Hx Substance Use: Yes (heroin abuse) - SURGICAL HISTORY Hx Surgeries: No - ANESTHESIA Hx Anesthesia: No Hx Anesthesia Reactions: No Hx Malignant Hyperthermia: No Meds Home Medications: Home Medication List Medication Instructions Recorded Confirmed Type Acetaminophen [Tylenol 325mg tab] 650 mg PO Q6 PRN #30 tab 03/08/17 Rx Albuterol/Ipratropium [Duoneb 3 3 ml INH RQ4 PRN #1 b 03/08/17 Rx mg/0.5 mg (3 ml) UD] Aspirin [Adult Low Dose Aspirin EC] 81 mg PO DAILY #30 tablet 03/08/17 Rx Atorvastatin [Lipitor] 40 mg PO DAILY #30 tab 03/08/17 Rx Bisoprolol [Zebeta] 5 mg PO DAILY #30 tab 03/08/17 Rx Clopidogrel [Plavix] 75 mg PO DAILY #30 tab 03/08/17 Rx Escitalopram [Lexapro] 10 mg PO DAILY #30 tab 03/08/17 Rx Fluticasone/Salmeterol 500/50 1 puff IH BID #1 dsk 03/08/17 Rx [Advair Diskus 500/50] Folic Acid 1 mg PO DAILY #30 tab 03/08/17 Rx Gabapentin [Neurontin] 600 mg PO TID #90 tab 03/08/17 Rx Lisinopril [Zestril] 10 mg PO DAILY #30 tab 03/08/17 Rx Magnesium Oxide [Mag-Ox] 400 mg PO BID #60 tab 03/08/17 Rx Thiamine [Vitamin B1 Tab] 100 mg PO DAILY #30 tab 03/08/17 Rx amLODIPine [Norvasc] 10 mg PO DAILY #30 tab 03/08/17 Rx cloNIDine [Catapres] 0.1 mg PO BID #60 tab 03/08/17 Rx risperiDONE [RisperDAL Tab] 1 mg PO HS #30 tab 03/08/17 Rx Allergies/Adverse Reactions: Allergies Allergy/AdvReac Type Severity Reaction Status Date / Time No Known Allergies Allergy Verified 12/24/16 20:53 Results - Vital Signs Recent Vital Signs: Last Vital Signs Temp 97.2 F L 03/08/17 07:50 Pulse 71 03/08/17 08:40 Resp 20 03/08/17 07:50 BP 118/69 03/08/17 08:40 Pulse Ox 99 03/08/17 07:50 - Labs Result Diagrams: 03/07/17 06:00 03/07/17 06:00
--- NOTE | 2017-03-08 12:24 | CP.PCM.DIS ---
Provider - Provider Date of Admission: 03/03/17 22:04 Attending physician: Yury Martínez MD Primary care physician: Gurwinder Mtz MD Consults: Lexi Schaffer- psychiatry; Dr. Saucedo- Pulmonary; Dr. Arita-neurology Time Spent in preparation of Discharge (in minutes): 30 Diagnosis - Discharge Diagnosis (1) COPD with acute exacerbation Status: Resolved Priority: Low (2) Cerebral atherosclerosis Status: Chronic Priority: Low (3) Psychiatric disorder Status: Chronic Priority: Medium (4) ETOH abuse Status: Chronic Priority: Low Hospital Course - Lab Results Lab Results: Most Recent Lab Values WBC 8.6 K/uL (4.8-10.8) 03/07/17 06:00 RBC 3.97 Mil/uL (4.40-5.90) L 03/07/17 06:00 Hgb 12.7 g/dL (12.0-18.0) 03/07/17 06:00 Hct 37.0 % (35.0-51.0) 03/07/17 06:00 MCV 93.4 fl (80.0-94.0) 03/07/17 06:00 MCH 32.1 pg (27.0-31.0) H 03/07/17 06:00 MCHC 34.4 g/dL (33.0-37.0) 03/07/17 06:00 RDW 13.0 % (11.5-14.5) 03/07/17 06:00 Plt Count 233 K/uL (130-400) 03/07/17 06:00 MPV 7.1 fl (7.2-11.7) L 03/07/17 06:00 Neut % (Auto) 58.5 % (50.0-75.0) 03/07/17 06:00 Lymph % (Auto) 25.0 % (20.0-40.0) 03/07/17 06:00 Storey % (Auto) 7.4 % (0.0-10.0) 03/07/17 06:00 Eos % (Auto) 8.6 % (0.0-4.0) H 03/07/17 06:00 Baso % (Auto) 0.5 % (0.0-2.0) 03/07/17 06:00 Neut # 5.0 K/uL (1.8-7.0) 03/07/17 06:00 Lymph # 2.1 K/uL (1.0-4.3) 03/07/17 06:00 Storey # 0.6 K/uL (0.0-0.8) 03/07/17 06:00 Eos # 0.7 K/uL (0.0-0.7) 03/07/17 06:00 Baso # 0.0 K/uL (0.0-0.2) 03/07/17 06:00 Sodium 143 mmol/l (132-148) 03/07/17 06:00 Potassium 4.6 MMOL/L (3.6-5.0) 03/07/17 06:00 Chloride 107 mmol/L (98-107) 03/07/17 06:00 Carbon Dioxide 28 mmol/L (22-30) 03/07/17 06:00 Anion Gap 13 (10-20) 03/07/17 06:00 BUN 28 mg/dl (9-20) H 03/07/17 06:00 Creatinine 1.0 mg/dl (0.8-1.5) 03/07/17 06:00 Est GFR ( Amer) > 60 03/07/17 06:00 Est GFR (Non-Af Amer) > 60 03/07/17 06:00 Random Glucose 137 mg/dL (75-110) H 03/07/17 06:00 Calcium 9.1 mg/dL (8.4-10.2) 03/07/17 06:00 Total Bilirubin < 0.1 mg/dl (0.2-1.3) L 03/07/17 06:00 AST 51 U/L (17-59) 03/07/17 06:00 ALT 83 U/L (21-72) H D 03/07/17 06:00 Alkaline Phosphatase 125 U/L (38-126) 03/07/17 06:00 Total Protein 6.7 G/DL (6.3-8.2) 03/07/17 06:00 Albumin 3.5 g/dL (3.5-5.0) 03/07/17 06:00 Globulin 3.2 gm/dL (2.2-3.9) 03/07/17 06:00 Albumin/Globulin Ratio 1.1 (1.0-2.1) 03/07/17 06:00 - Hospital Course Hospital Course: 51 yr old M admitted to TCU for rehabilitation s/p treatment of COPD exacerbation and psych disorder associated with Etoh abuse. Patient tolerated physical therapy well as well as psych treatment. Patient denies suicidal or homicidal ideations, is medically stable for discharge. Instructions given to follow up with PMD and psychiatry within 1 week. - Date & Time of H&P Date of H&P: 03/04/17 Time of H&P: 08:30 Discharge Exam - Head Exam Head Exam: NORMAL INSPECTION - Eye Exam Eye Exam: EOMI, PERRL - ENT Exam ENT Exam: Mucous Membranes Dry - Neck Exam Neck exam: Full Rom - Respiratory Exam Respiratory Exam: Clear to PA & Lateral, NORMAL BREATHING PATTERN - Cardiovascular Exam Cardiovascular Exam: REGULAR RHYTHM, +S1, +S2 - GI/Abdominal Exam GI & Abdominal Exam: Normal Bowel Sounds, Soft. absent: Tenderness - Extremities Exam Extremities exam: full ROM - Neurological Exam Neurological exam: Alert, CN II-XII Intact, Oriented x3 - Psychiatric Exam Psychiatric exam: Normal Affect, Normal Mood - Skin Skin Exam: Dry, Intact, Normal Color, Warm Discharge Plan - Discharge Medications Prescriptions: Acetaminophen [Tylenol 325mg tab] 650 mg PO Q6 PRN #30 tab PRN Reason: Headache Albuterol/Ipratropium [Duoneb 3 mg/0.5 mg (3 ml) UD] 3 ml INH RQ4 PRN #1 b PRN Reason: Shortness Of Breath amLODIPine [Norvasc] 10 mg PO DAILY #30 tab Aspirin [Adult Low Dose Aspirin EC] 81 mg PO DAILY #30 tablet. Atorvastatin [Lipitor] 40 mg PO DAILY #30 tab Bisoprolol [Zebeta] 5 mg PO DAILY #30 tab cloNIDine [Catapres] 0.1 mg PO BID #60 tab Clopidogrel [Plavix] 75 mg PO DAILY #30 tab Escitalopram [Lexapro] 10 mg PO DAILY #30 tab Fluticasone/Salmeterol 500/50 [Advair Diskus 500/50] 1 puff IH BID #1 dsk Folic Acid 1 mg PO DAILY #30 tab Gabapentin [Neurontin] 600 mg PO TID #90 tab Lisinopril [Zestril] 10 mg PO DAILY #30 tab Magnesium Oxide [Mag-Ox] 400 mg PO BID #60 tab risperiDONE [RisperDAL Tab] 1 mg PO HS #30 tab Thiamine [Vitamin B1 Tab] 100 mg PO DAILY #30 tab - Follow Up Plan Condition: GOOD Disposition: HOME/ ROUTINE Instructions: COPD (Chronic Obstructive Pulmonary Disease) (DC) Additional Instructions: Follow up with your PMD within 1 week. Follow up with [facility] within 2 weeks Take medications as prescribed. Referrals: [facility] [Provider Group] Gurwinder Mtz MD [Primary Care Provider] - Clinical Quality Measures - Date & Time of Discharge Summary Date of Discharge Summary: 03/08/17 Time of Discharge Summary: 12:35
--- NOTE | 2017-03-08 15:14 | CP.PCM.PN ---
Subjective - Date & Time of Evaluation Date of Evaluation: 03/08/17 Time of Evaluation: 10:00 - Subjective Subjective: Patient seen and examined at bedside. In no acute distress. Reports tolerating physical therapy well. No complaints at this time. Objective - Vital Signs/Intake and Output Vital Signs (last 24 hours): Temp Pulse Resp BP Pulse Ox 97.2 F L 71 20 118/69 99 03/08/17 07:50 03/08/17 08:40 03/08/17 07:50 03/08/17 08:40 03/08/17 07:50 - Medications Medications: Current Medications Acetaminophen (Tylenol 325mg Tab) 650 mg PO Q6 PRN PRN Reason: Headache Acetaminophen/Codeine Phosphate (Tylenol/Codeine 300 Mg/30 Mg) 1 tab PO Q6 PRN PRN Reason: Pain, severe (8-10) Last Admin: 03/07/17 09:14 Dose: 1 tab Albuterol/Ipratropium (Duoneb 3 Mg/0.5 Mg (3 Ml) Ud) 3 ml INH RQ4 REPLACED BY [facility] Last Admin: 03/08/17 11:23 Dose: 3 ml Amlodipine Besylate (Norvasc) 10 mg PO DAILY [facility] Last Admin: 03/08/17 08:40 Dose: 10 mg Aspirin (Ecotrin) 81 mg PO DAILY [facility] Last Admin: 03/08/17 08:39 Dose: 81 mg Atorvastatin Calcium (Lipitor) 40 mg PO DAILY [facility] Last Admin: 03/08/17 08:40 Dose: 40 mg Bisoprolol Fumarate (Zebeta) 5 mg PO DAILY [facility] Last Admin: 03/08/17 08:40 Dose: 5 mg Clonidine HCl (Catapres) 0.1 mg PO BID [facility]PL[facility] BY [facility] Last Admin: 03/08/17 08:39 Dose: Not Given Clopidogrel Bisulfate (Plavix) 75 mg PO DAILY [facility] Last Admin: 03/08/17 08:40 Dose: 75 mg Escitalopram Oxalate (Lexapro) 10 mg PO DAILY [facility] Last Admin: 03/08/17 08:39 Dose: 10 mg Folic Acid (Folic Acid) 1 mg PO DAILY [facility] Last Admin: 03/08/17 08:39 Dose: 1 mg Gabapentin (Neurontin) 600 mg PO TID [facility]PL[facility] BY [facility] Last Admin: 03/08/17 12:44 Dose: 600 mg Guaifenesin/Dextromethorphan (Robitussin Dm) 10 ml PO Q6 PRN PRN Reason: cough Last Admin: 03/06/17 22:59 Dose: 10 ml Ibuprofen (Motrin Tab) 600 mg PO Q6 PRN PRN Reason: Headache Last Admin: 03/05/17 20:20 Dose: 600 mg Lidocaine (Lidoderm) 1 ea TD DAILY [facility]PL[facility] Last Admin: 03/08/17 08:39 Dose: 1 ea Lisinopril (Zestril) 10 mg PO DAILY [facility] BY [facility] Last Admin: 03/08/17 08:40 Dose: 10 mg Magnesium Oxide (Mag-Ox) 400 mg PO BID [facility]PL[facility] BY [facility] Last Admin: 03/08/17 08:40 Dose: 400 mg Risperidone (Risperdal Tab) 1 mg PO HS REPLACED BY [facility] Last Admin: 03/07/17 21:48 Dose: 1 mg Fluticasone/Salmeterol (Advair Diskus 500/50) 1 puff IH BID REPLACED BY [facility] Last Admin: 03/08/17 08:38 Dose: 1 unit Thiamine HCl (Vitamin B1 Tab) 100 mg PO DAILY [facility]PL[facility] BY [facility] Last Admin: 03/08/17 08:40 Dose: 100 mg - Labs Labs: 03/07/17 06:00 03/07/17 06:00 - Constitutional Appears: Well - Head Exam Head Exam: ATRAUMATIC, NORMOCEPHALIC - Eye Exam Eye Exam: EOMI, PERRL - ENT Exam ENT Exam: Mucous Membranes Moist - Neck Exam Neck Exam: Full ROM - Respiratory Exam Respiratory Exam: NORMAL BREATHING PATTERN - Cardiovascular Exam Cardiovascular Exam: REGULAR RHYTHM, +S1, +S2 - GI/Abdominal Exam GI & Abdominal Exam: Soft, Normal Bowel Sounds - Extremities Exam Extremities Exam: Full ROM. absent: Pedal Edema - Neurological Exam Neurological Exam: Alert, Awake, CN II-XII Intact, Oriented x3 - Psychiatric Exam Psychiatric exam: Normal Affect, Normal Mood - Skin Skin Exam: Dry, Intact, Normal Color, Warm Assessment and Plan (1) Cerebral atherosclerosis Assessment & Plan: -stable, per neurology: If worsened headache, will repeat CT Head without contrast -continue physical therapy and current management Status: Chronic (2) Psychiatric disorder Assessment & Plan: -stable, continue current medications, upon discharge refer to psychiatry clinic as outpatient Status: Chronic (3) ETOH abuse Assessment & Plan: -chronic, stable -continue current management Status: Chronic
[2017-03-08] MEDS: guaiFENesin DM 200 mg-20 mg/10 ml UD PO PRN (21:04)
[2017-03-09] MEDS: Albuterol-Ipratrop 3 mg / 0.5 (3 ml) UD INH SCH ×6 (05:39→23:57)
[2017-03-09] MEDS: Fluticasone-Salmeterol 500-50mcg Diskus IH SCH ×2 (08:37→17:23)
[2017-03-09] MEDS: Lidocaine 5% Patch TD SCH (08:38)
[2017-03-09] MEDS: Magnesium Oxide 400 mg Tab UD PO SCH ×2 (08:39→17:23)
--- NOTE | 2017-03-09 08:42 | CP.PCM.PN ---
Subjective - Date & Time of Evaluation Date of Evaluation: 03/09/17 Time of Evaluation: 08:38 - Subjective Subjective: Mr. Ledesma was seen and examined at the bedside. He is alert, oriented, able to participate in a pleasant conversation. He is able to follow simple commands. He further states of going home marie. He states of experiencing very mild headache, denies any blurred vision, dizziness, lightheadedness, nausea, or vomiting. He is able to ambulate around his room with steady gait. He further request an explanation of his withdrawal and liver dis. verbalize understanding. There was no untoward events overnight. Objective - Vital Signs/Intake and Output Vital Signs (last 24 hours): Temp Pulse Resp BP Pulse Ox 98.1 F 86 20 99/69 L 97 03/08/17 19:56 03/08/17 19:56 03/08/17 19:56 03/08/17 19:56 03/08/17 19:56 - Medications Medications: Current Medications Acetaminophen (Tylenol 325mg Tab) 650 mg PO Q6 PRN PRN Reason: Headache Acetaminophen/Codeine Phosphate (Tylenol/Codeine 300 Mg/30 Mg) 1 tab PO Q6 PRN PRN Reason: Pain, severe (8-10) Last Admin: 03/07/17 09:14 Dose: 1 tab Albuterol/Ipratropium (Duoneb 3 Mg/0.5 Mg (3 Ml) Ud) 3 ml INH RQ4 [facility] Last Admin: 03/09/17 07:34 Dose: 3 ml Amlodipine Besylate (Norvasc) 10 mg PO DAILY [facility] Last Admin: 03/08/17 08:40 Dose: 10 mg Aspirin (Ecotrin) 81 mg PO DAILY [facility] Last Admin: 03/08/17 08:39 Dose: 81 mg Atorvastatin Calcium (Lipitor) 40 mg PO DAILY [facility] Last Admin: 03/08/17 08:40 Dose: 40 mg Bisoprolol Fumarate (Zebeta) 5 mg PO DAILY [facility] Last Admin: 03/08/17 08:40 Dose: 5 mg Clonidine HCl (Catapres) 0.1 mg PO BID [facility] Last Admin: 03/08/17 17:15 Dose: 0.1 mg Clopidogrel Bisulfate (Plavix) 75 mg PO DAILY [facility] Last Admin: 03/08/17 08:40 Dose: 75 mg Diphenhydramine HCl (Benadryl) 50 mg PO HS PRN PRN Reason: Sleep Last Admin: 03/08/17 21:50 Dose: 50 mg Escitalopram Oxalate (Lexapro) 10 mg PO DAILY [facility] Last Admin: 03/08/17 08:39 Dose: 10 mg Folic Acid (Folic Acid) 1 mg PO DAILY [facility] Last Admin: 03/08/17 08:39 Dose: 1 mg Gabapentin (Neurontin) 600 mg PO TID [facility] Last Admin: 03/08/17 17:14 Dose: 600 mg Guaifenesin/Dextromethorphan (Robitussin Dm) 10 ml PO Q6 PRN PRN Reason: cough Last Admin: 03/08/17 21:04 Dose: 10 ml Ibuprofen (Motrin Tab) 600 mg PO Q6 PRN PRN Reason: Headache Last Admin: 03/08/17 21:01 Dose: 600 mg Lidocaine (Lidoderm) 1 ea TD DAILY [facility] Last Admin: 03/08/17 08:39 Dose: 1 ea Lisinopril (Zestril) 10 mg PO DAILY [facility] Last Admin: 03/08/17 08:40 Dose: 10 mg Magnesium Oxide (Mag-Ox) 400 mg PO BID [facility] Last Admin: 03/08/17 17:15 Dose: 400 mg Risperidone (Risperdal Tab) 1 mg PO HS [facility] Last Admin: 03/08/17 21:01 Dose: 1 mg Fluticasone/Salmeterol (Advair Diskus 500/50) 1 puff IH BID [facility] Last Admin: 03/08/17 17:14 Dose: 1 unit Thiamine HCl (Vitamin B1 Tab) 100 mg PO DAILY [facility] Last Admin: 03/08/17 08:40 Dose: 100 mg - Labs Labs: 03/07/17 06:00 03/07/17 06:00 - Constitutional Appears: No Acute Distress - Head Exam Head Exam: NORMAL INSPECTION - Neurological Exam Neurological Exam: Alert, Awake, Oriented x3 Neuro motor strength exam: Left Upper Extremity: 5, Right Upper Extremity: 5, Left Lower Extremity: 5, Right Lower Extremity: 5 Additional comments: Neurological improved from previous examination. Assessment and Plan (1) Cerebral atherosclerosis Assessment & Plan: Case discussed with Dr. Arita, continue all current medical treatment. If patient to be discharge marie. to continue dual anti-platelet, statin, neurontin, and clonidine. There is no new recommendation from neurology. Status: Chronic
[2017-03-09 10:17] LABS: ALB/GLOB RATIO 1.2 (1.0-2.1); ALBUMIN 4.1 g/dL (3.5-5.0); BILIRUBIN,DIRECT 0.3 mg/ml (0.0-0.4)
--- NOTE | 2017-03-09 12:45 | CP.PCM.PN ---
Subjective - Date & Time of Evaluation Date of Evaluation: 03/09/17 Time of Evaluation: 07:55 - Subjective Subjective: Patient seen and examined at bedside with attending-Dr. Martínez. Denies abdominal pain, chest pain, SOB, weakness or dizziness. Tolerating physical therapy well. Objective - Vital Signs/Intake and Output Vital Signs (last 24 hours): Temp Pulse Resp BP Pulse Ox 97.0 F L 74 20 110/88 98 03/09/17 09:22 03/09/17 09:22 03/09/17 09:22 03/09/17 09:22 03/09/17 09:22 - Medications Medications: Current Medications Acetaminophen (Tylenol 325mg Tab) 650 mg PO Q6 PRN PRN Reason: Headache Acetaminophen/Codeine Phosphate (Tylenol/Codeine 300 Mg/30 Mg) 1 tab PO Q6 PRN PRN Reason: Pain, severe (8-10) Last Admin: 03/07/17 09:14 Dose: 1 tab Albuterol/Ipratropium (Duoneb 3 Mg/0.5 Mg (3 Ml) Ud) 3 ml INH RQ4 [facility] Last Admin: 03/09/17 11:14 Dose: 3 ml Amlodipine Besylate (Norvasc) 10 mg PO DAILY [facility] Last Admin: 03/09/17 08:39 Dose: 10 mg Aspirin (Ecotrin) 81 mg PO DAILY [facility] Last Admin: 03/09/17 08:38 Dose: 81 mg Atorvastatin Calcium (Lipitor) 40 mg PO DAILY [facility] Last Admin: 03/09/17 08:39 Dose: 40 mg Bisoprolol Fumarate (Zebeta) 5 mg PO DAILY [facility] Last Admin: 03/09/17 08:39 Dose: 5 mg Clonidine HCl (Catapres) 0.1 mg PO BID [facility] Last Admin: 03/09/17 08:38 Dose: Not Given Clopidogrel Bisulfate (Plavix) 75 mg PO DAILY [facility] Last Admin: 03/09/17 08:39 Dose: 75 mg Diphenhydramine HCl (Benadryl) 50 mg PO HS PRN PRN Reason: Sleep Last Admin: 03/08/17 21:50 Dose: 50 mg Escitalopram Oxalate (Lexapro) 10 mg PO DAILY [facility] Last Admin: 03/09/17 08:38 Dose: 10 mg Folic Acid (Folic Acid) 1 mg PO DAILY [facility] Last Admin: 03/09/17 08:38 Dose: 1 mg Gabapentin (Neurontin) 600 mg PO TID [facility] Last Admin: 03/09/17 08:39 Dose: 600 mg Guaifenesin/Dextromethorphan (Robitussin Dm) 10 ml PO Q6 PRN PRN Reason: cough Last Admin: 03/08/17 21:04 Dose: 10 ml Ibuprofen (Motrin Tab) 600 mg PO Q6 PRN PRN Reason: Headache Last Admin: 03/08/17 21:01 Dose: 600 mg Lidocaine (Lidoderm) 1 ea TD DAILY [facility] Last Admin: 03/09/17 08:38 Dose: Not Given Lisinopril (Zestril) 10 mg PO DAILY [facility] Last Admin: 03/09/17 08:40 Dose: 10 mg Magnesium Oxide (Mag-Ox) 400 mg PO BID [facility] Last Admin: 03/09/17 08:39 Dose: 400 mg Risperidone (Risperdal Tab) 1 mg PO HS [facility] Last Admin: 03/08/17 21:01 Dose: 1 mg Fluticasone/Salmeterol (Advair Diskus 500/50) 1 puff IH BID [facility] Last Admin: 03/09/17 08:37 Dose: 1 unit Thiamine HCl (Vitamin B1 Tab) 100 mg PO DAILY [facility] Last Admin: 03/09/17 08:39 Dose: 100 mg - Labs Labs: 03/07/17 06:00 03/07/17 06:00 - Constitutional Appears: No Acute Distress - Head Exam Head Exam: ATRAUMATIC, NORMOCEPHALIC - Eye Exam Eye Exam: EOMI, PERRL - ENT Exam ENT Exam: Mucous Membranes Moist - Neck Exam Neck Exam: Full ROM - Respiratory Exam Respiratory Exam: Clear to Ausculation Bilateral, NORMAL BREATHING PATTERN - Cardiovascular Exam Cardiovascular Exam: REGULAR RHYTHM, +S1, +S2 - GI/Abdominal Exam GI & Abdominal Exam: Soft (obese), Normal Bowel Sounds. absent: Tenderness - Neurological Exam Neurological Exam: Alert, Awake, CN II-XII Intact, Oriented x3 - Psychiatric Exam Psychiatric exam: Normal Affect, Normal Mood - Skin Skin Exam: Dry, Normal Color, Warm Assessment and Plan (1) Cerebral atherosclerosis Assessment & Plan: -stable, improved neurological exam -Neurology consult appreciated: continue with dual anti-platelet therapy, statin , neurontin and clonidine, no new recommendations Status: Chronic (2) Psychiatric disorder Assessment & Plan: stable, continue current medications, upon discharge will refer to psychiatry clinic as outpatient Status: Chronic (3) ETOH abuse Assessment & Plan: stable, continue current management Status: Chronic
[2017-03-10] MEDS: Albuterol-Ipratrop 3 mg / 0.5 (3 ml) UD INH SCH ×3 (05:28→11:13)
[2017-03-10 08:03] VITALS: BP 110/70; PULSE 74; RESP 22; TEMP 97.5; O2SAT 100
--- NOTE | 2017-03-10 08:41 | CP.PCM.PN ---
Subjective - Date & Time of Evaluation Date of Evaluation: 03/10/17 Time of Evaluation: 08:37 - Subjective Subjective: Mr. Ledesma was seen and examined at the bedside. He is alert, oriented in all spheres. He states of being discharged today. He verbalizes his concern regarding all his medications. The primary physician will be giving all his discharge prescriptions and will have to follow his private primary physician. He denies any headache, dizziness, lightheadedness, nausea,or vomiting. His liver enzymes today is improving from previous. There was no untoward events overnight. Objective - Vital Signs/Intake and Output Vital Signs (last 24 hours): Temp Pulse Resp BP Pulse Ox 97.5 F L 74 22 110/70 100 03/10/17 08:02 03/10/17 08:02 03/10/17 08:02 03/10/17 08:02 03/10/17 08:02 - Medications Medications: Current Medications Acetaminophen (Tylenol 325mg Tab) 650 mg PO Q6 PRN PRN Reason: Headache Acetaminophen/Codeine Phosphate (Tylenol/Codeine 300 Mg/30 Mg) 1 tab PO Q6 PRN PRN Reason: Pain, severe (8-10) Last Admin: 03/07/17 09:14 Dose: 1 tab Albuterol/Ipratropium (Duoneb 3 Mg/0.5 Mg (3 Ml) Ud) 3 ml INH RQ4 [facility] Last Admin: 03/10/17 07:32 Dose: 3 ml Amlodipine Besylate (Norvasc) 10 mg PO DAILY [facility] Last Admin: 03/09/17 08:39 Dose: 10 mg Aspirin (Ecotrin) 81 mg PO DAILY [facility] Last Admin: 03/09/17 08:38 Dose: 81 mg Atorvastatin Calcium (Lipitor) 40 mg PO DAILY [facility] Last Admin: 03/09/17 08:39 Dose: 40 mg Bisoprolol Fumarate (Zebeta) 5 mg PO DAILY [facility] Last Admin: 03/09/17 08:39 Dose: 5 mg Clonidine HCl (Catapres) 0.1 mg PO BID [facility] Last Admin: 03/09/17 17:23 Dose: Not Given Clopidogrel Bisulfate (Plavix) 75 mg PO DAILY [facility] Last Admin: 03/09/17 08:39 Dose: 75 mg Diphenhydramine HCl (Benadryl) 50 mg PO HS PRN PRN Reason: Sleep Last Admin: 03/09/17 21:09 Dose: 50 mg Escitalopram Oxalate (Lexapro) 10 mg PO DAILY [facility] Last Admin: 03/09/17 08:38 Dose: 10 mg Folic Acid (Folic Acid) 1 mg PO DAILY [facility] Last Admin: 03/09/17 08:38 Dose: 1 mg Gabapentin (Neurontin) 600 mg PO TID [facility] Last Admin: 03/09/17 17:23 Dose: 600 mg Guaifenesin/Dextromethorphan (Robitussin Dm) 10 ml PO Q6 PRN PRN Reason: cough Last Admin: 03/08/17 21:04 Dose: 10 ml Ibuprofen (Motrin Tab) 600 mg PO Q6 PRN PRN Reason: Headache Last Admin: 03/09/17 17:24 Dose: 600 mg Lidocaine (Lidoderm) 1 ea TD DAILY [facility] Last Admin: 03/09/17 08:38 Dose: Not Given Lisinopril (Zestril) 10 mg PO DAILY [facility] Last Admin: 03/09/17 08:40 Dose: 10 mg Magnesium Oxide (Mag-Ox) 400 mg PO BID [facility] Last Admin: 03/09/17 17:23 Dose: 400 mg Risperidone (Risperdal Tab) 1 mg PO HS [facility] Last Admin: 03/09/17 21:09 Dose: 1 mg Fluticasone/Salmeterol (Advair Diskus 500/50) 1 puff IH BID [facility] Last Admin: 03/09/17 17:23 Dose: 1 unit Thiamine HCl (Vitamin B1 Tab) 100 mg PO DAILY [facility] Last Admin: 03/09/17 08:39 Dose: 100 mg - Labs Labs: 03/07/17 06:00 03/07/17 06:00 - Constitutional Appears: No Acute Distress - Head Exam Head Exam: NORMAL INSPECTION - Neurological Exam Neurological Exam: Alert, Awake, Oriented x3 Neuro motor strength exam: Left Upper Extremity: 5, Right Upper Extremity: 5, Left Lower Extremity: 5, Right Lower Extremity: 5 Additional comments: Neurological unchanged from previous examination. Assessment and Plan (1) Cerebral atherosclerosis Assessment & Plan: Case discussed with Dr. Arita, continue all current medical regimen. Recommend to continue aspirin, plavix, and lipitor for his cerebral atherosclerosis. Gabapentin for his headache. Status: Chronic
[2017-03-10] MEDS: Fluticasone-Salmeterol 500-50mcg Diskus IH SCH (09:13)
[2017-03-10] MEDS: Lidocaine 5% Patch TD SCH (09:15)
[2017-03-10] MEDS: Magnesium Oxide 400 mg Tab UD PO SCH (09:16)
--- NOTE | 2017-03-10 09:26 | CP.PCM.DIS ---
Provider - Provider Date of Admission: 03/03/17 22:04 Attending physician: Yury Martínez MD Primary care physician: Gurwinder Mtz MD Consults: Lexi Schaffer- psychiatry; Dr. Saucedo- Pulmonary; Dr. Arita-neurology Time Spent in preparation of Discharge (in minutes): 30 Diagnosis - Discharge Diagnosis (1) Cerebral atherosclerosis Status: Chronic Priority: Low (2) Psychiatric disorder Status: Chronic Priority: Low (3) ETOH abuse Status: Chronic Priority: Low Hospital Course - Lab Results Lab Results: Most Recent Lab Values WBC 8.6 K/uL (4.8-10.8) 03/07/17 06:00 RBC 3.97 Mil/uL (4.40-5.90) L 03/07/17 06:00 Hgb 12.7 g/dL (12.0-18.0) 03/07/17 06:00 Hct 37.0 % (35.0-51.0) 03/07/17 06:00 MCV 93.4 fl (80.0-94.0) 03/07/17 06:00 MCH 32.1 pg (27.0-31.0) H 03/07/17 06:00 MCHC 34.4 g/dL (33.0-37.0) 03/07/17 06:00 RDW 13.0 % (11.5-14.5) 03/07/17 06:00 Plt Count 233 K/uL (130-400) 03/07/17 06:00 MPV 7.1 fl (7.2-11.7) L 03/07/17 06:00 Neut % (Auto) 58.5 % (50.0-75.0) 03/07/17 06:00 Lymph % (Auto) 25.0 % (20.0-40.0) 03/07/17 06:00 [place] % (Auto) 7.4 % (0.0-10.0) 03/07/17 06:00 Eos % (Auto) 8.6 % (0.0-4.0) H 03/07/17 06:00 Baso % (Auto) 0.5 % (0.0-2.0) 03/07/17 06:00 Neut # 5.0 K/uL (1.8-7.0) 03/07/17 06:00 Lymph # 2.1 K/uL (1.0-4.3) 03/07/17 06:00 [place] # 0.6 K/uL (0.0-0.8) 03/07/17 06:00 Eos # 0.7 K/uL (0.0-0.7) 03/07/17 06:00 Baso # 0.0 K/uL (0.0-0.2) 03/07/17 06:00 Sodium 143 mmol/l (132-148) 03/07/17 06:00 Potassium 4.6 MMOL/L (3.6-5.0) 03/07/17 06:00 Chloride 107 mmol/L (98-107) 03/07/17 06:00 Carbon Dioxide 28 mmol/L (22-30) 03/07/17 06:00 Anion Gap 13 (10-20) 03/07/17 06:00 BUN 28 mg/dl (9-20) H 03/07/17 06:00 Creatinine 1.0 mg/dl (0.8-1.5) 03/07/17 06:00 Est GFR ( Amer) > 60 03/07/17 06:00 Est GFR (Non-Af Amer) > 60 03/07/17 06:00 Random Glucose 137 mg/dL (75-110) H 03/07/17 06:00 Calcium 9.1 mg/dL (8.4-10.2) 03/07/17 06:00 Total Bilirubin 0.3 mg/dl (0.2-1.3) 03/09/17 09:25 Direct Bilirubin 0.3 mg/ml (0.0-0.4) 03/09/17 09:25 AST 59 U/L (17-59) 03/09/17 09:25 ALT 79 U/L (21-72) H 03/09/17 09:25 Alkaline Phosphatase 102 U/L (38-126) 03/09/17 09:25 Total Protein 7.4 G/DL (6.3-8.2) 03/09/17 09:25 Albumin 4.1 g/dL (3.5-5.0) 03/09/17 09:25 Globulin 3.4 gm/dL (2.2-3.9) 03/09/17 09:25 Albumin/Globulin Ratio 1.2 (1.0-2.1) 03/09/17 09:25 - Hospital Course Hospital Course: 51 yr old M admitted to TCU for rehabilitation s/p treatment of COPD exacerbation and psych disorder associated with Etoh abuse. Patient tolerated physical therapy well as well as psych treatment. Patient denies suicidal or homicidal ideation, is medically stable for discharge. Instructions given to follow up with PMD and psychiatry within 1 week. - Date & Time of H&P Date of H&P: 03/04/17 Time of H&P: 08:30 Discharge Exam - Head Exam Head Exam: NORMAL INSPECTION - Eye Exam Eye Exam: EOMI, PERRL - ENT Exam ENT Exam: Mucous Membranes Moist - Neck Exam Neck exam: Full Rom - Respiratory Exam Respiratory Exam: Clear to PA & Lateral, NORMAL BREATHING PATTERN - Cardiovascular Exam Cardiovascular Exam: REGULAR RHYTHM, +S1, +S2 - GI/Abdominal Exam GI & Abdominal Exam: Normal Bowel Sounds, Soft. absent: Tenderness - Extremities Exam Extremities exam: full ROM - Psychiatric Exam Psychiatric exam: Normal Affect, Normal Mood - Skin Skin Exam: Dry, Normal Color, Warm Discharge Plan - Discharge Medications Prescriptions: Acetaminophen [Tylenol 325mg tab] 650 mg PO Q6 PRN #30 tab PRN Reason: Headache Albuterol/Ipratropium [Duoneb 3 mg/0.5 mg (3 ml) UD] 3 ml INH RQ4 PRN #1 b PRN Reason: Shortness Of Breath amLODIPine [Norvasc] 10 mg PO DAILY #30 tab Aspirin [Adult Low Dose Aspirin EC] 81 mg PO DAILY #30 tablet. Atorvastatin [Lipitor] 40 mg PO DAILY #30 tab Bisoprolol [Zebeta] 5 mg PO DAILY #30 tab cloNIDine [Catapres] 0.1 mg PO BID #60 tab Clopidogrel [Plavix] 75 mg PO DAILY #30 tab Escitalopram [Lexapro] 10 mg PO DAILY #30 tab Fluticasone/Salmeterol 500/50 [Advair Diskus 500/50] 1 puff IH BID #1 dsk Folic Acid 1 mg PO DAILY #30 tab Gabapentin [Neurontin] 600 mg PO TID #90 tab Lisinopril [Zestril] 10 mg PO DAILY #30 tab Magnesium Oxide [Mag-Ox] 400 mg PO BID #60 tab risperiDONE [RisperDAL Tab] 1 mg PO HS #30 tab Thiamine [Vitamin B1 Tab] 100 mg PO DAILY #30 tab - Follow Up Plan Condition: GOOD Disposition: HOME/ ROUTINE Instructions: COPD (Chronic Obstructive Pulmonary Disease) (DC) Additional Instructions: Follow up with your PMD within 1 week. [facility] 2 weeks Take medications as prescribed. Referrals: [facility] [Provider Group] Gurwinder Mtz MD [Primary Care Provider] - Clinical Quality Measures - Date & Time of Discharge Summary Date of Discharge Summary: 03/10/17 Time of Discharge Summary: 18:13
== END 2017-03-10 11:10 | disposition home or self-care (01) | DRG 88 ==
LOC: H.TCU 22:04
PROVIDERS: ADMIT Internal Medicine; ATTEND Internal Medicine
PROC: F07Z9FZ Gait Training/Functional Ambulation Treatment using Assistive, Adaptive, Supportive or Protective Equipment (ICD-10-PCS; principal; 2017-03-03)
PROC: 3E0F73Z Introduction of Anti-inflammatory into Respiratory Tract, Via Natural or Artificial Opening (ICD-10-PCS; 2017-03-03)
PROC: F08Z4FZ Home Management Treatment using Assistive, Adaptive, Supportive or Protective Equipment (ICD-10-PCS; 2017-03-03)
PROC: 3E0234Z Introduction of Serum, Toxoid and Vaccine into Muscle, Percutaneous Approach (ICD-10-PCS; 2017-03-04)
PROC: F07M6FZ Therapeutic Exercise Treatment of Musculoskeletal System - Whole Body using Assistive, Adaptive, Supportive or Protective Equipment (ICD-10-PCS; 2017-03-04)
DX: J44.1 Chronic obstructive pulmonary disease with (acute) exacerbation (principal); I67.2 Cerebral atherosclerosis; B19.20 Unspecified viral hepatitis C without hepatic coma; F11.10 Opioid abuse, uncomplicated; F10.20 Alcohol dependence, uncomplicated; G89.29 Other chronic pain; I10 Essential (primary) hypertension; E78.00 Pure hypercholesterolemia, unspecified; M06.9 Rheumatoid arthritis, unspecified; N40.0 Benign prostatic hyperplasia without lower urinary tract symptoms; K29.70 Gastritis, unspecified, without bleeding; F32.9 Major depressive disorder, single episode, unspecified; R51 Headache; F17.210 Nicotine dependence, cigarettes, uncomplicated; Z23 Encounter for immunization; Z86.73 Personal history of transient ischemic attack (TIA), and cerebral infarction without residual deficits

== ENCOUNTER 2017-08-25 23:14 | Observation (INO) | payer MEDICAID ==
[2017-08-25 23:14] VITALS: BMI 29.5
[2017-08-25] MEDS ORDERED: Iohexol 240 (50 ml) PO ONE (23:58)
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
[2017-08-26] MEDS ORDERED: Iohexol 240 (50 ml) ONE (00:25)
[2017-08-26] MEDS ORDERED: Albuterol-Ipratrop 3 mg / 0.5 (3 ml) UD ONE (00:26)
[2017-08-26] MEDS ORDERED: Morphine 4 MG/ML VIAL ONE (00:26)
[2017-08-26 00:27] LABS: BASO # 0.1 K/uL (0.0-0.2); BASO % 0.7 % (0.0-2.0); EOS # 0.9 K/uL (0.0-0.7); EOS % 11.8 % (0.0-4.0); HEMOGLOBIN 14.6 g/dL (12.0-18.0); LYMPH # 1.7 K/uL (1.0-4.3); LYMPH % 22.4 % (20.0-40.0); MEAN CORPUSCULAR HEMOGLOBIN 31.8 pg (27.0-31.0); MEAN CORPUSCULAR HGB CONC 33.8 g/dL (33.0-37.0); MEAN PLATELET VOLUME 7.4 fl (7.2-11.7); MONO % 13.1 % (0.0-10.0); NEUT # 3.9 K/uL (1.8-7.0); RBC 4.59 Mil/uL (4.40-5.90); RED CELL DISTRIBUTION WIDTH 14.4 % (11.5-14.5); WHITE BLOOD COUNT 7.4 K/uL (4.8-10.8)
[2017-08-26 00:36] LABS: ALB/GLOB RATIO 1.1 (1.0-2.1); ALBUMIN 4.1 g/dL (3.5-5.0); CALCIUM 9.1 mg/dL (8.4-10.2)
[2017-08-26] MEDS ORDERED: Sodium Chloride 0.9% 1,000 ML IV STA ×2 (00:39→05:54)
[2017-08-26 01:19] LABS: PROTHROMBIN TIME 10.8 Seconds (9.8-13.1)
[2017-08-26 01:20] LABS: PARTIAL THROMBOPLASTIN TIME 29.9 Seconds (25.6-37.1)
[2017-08-26 02:17] LABS: SQUAMOUS EPITHIAL 1 /hpf (0-5); URINE BACTERIA RARE (<OCC); URINE BILIRUBIN NEGATIVE (NEGATIVE); URINE BLOOD SMALL (NEGATIVE); URINE CLARITY SLIGHTY-CLOUDY (Clear); URINE COLOR YELLOW (YELLOW); URINE GLUCOSE (UA) NEG (Normal); URINE LEUKOCYTE ESTERASE NEG Leu/uL (Negative); URINE PROTEIN 30 mg/dL (NEGATIVE); URINE UROBILINOGEN 0.2-1.0 mg/dL (0.2-1.0)
[2017-08-26 02:36] LABS: BARBITURATES, UR NEGATIVE (NEGATIVE); BENZODIAZEPINES, UR NEGATIVE (NEGATIVE); OPIATES, UR POSITIVE (NEGATIVE); PHENCYCLIDINE, UR NEGATIVE (NEGATIVE)
[2017-08-26] MEDS ORDERED: Albuterol-Ipratrop 3 mg / 0.5 (3 ml) UD INH STA ×3 (03:23)
[2017-08-26] MEDS ORDERED: Magnesium Sulfate 2 gm/50 ml 2 GM/50 ML BAG IVPB ONE (06:30)
[2017-08-26 06:41] LABS: CALCIUM 9.1 mg/dL (8.4-10.2)
[2017-08-26] MEDS ORDERED: Magnesium Sulfate 2 gm/50 ml 2 GM/50 ML BAG ONE (07:29)
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
[2017-08-26] MEDS ORDERED: methylPREDNISolone 60 MG in Sodium Chloride 0.9% 50 ML IV SCH (11:15)
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
[2017-08-26] MEDS: Albuterol-Ipratrop 3 mg / 0.5 (3 ml) UD INH SCH ×2 (13:23→19:46)
[2017-08-26] MEDS ORDERED: Albuterol-Ipratrop 3 mg / 0.5 (3 ml) UD INH PRN (14:40)
[2017-08-26] MEDS: Fluticasone-Salmeterol 500-50mcg Diskus IH SCH (18:04)
[2017-08-26] MEDS: Azithromycin 500 MG in Sodium Chloride 0.9% 250 ML IVPB SCH (18:12)
[2017-08-26] MEDS ORDERED: Sodium Chloride 0.45% 1,000 ML IV SCH (22:45)
[2017-08-27] MEDS ORDERED: Labetalol 5 mg/ml Inj 20ML IVP STA (05:07)
[2017-08-27] MEDS ORDERED: [UNRECOGNIZED DRUG - OTHER] PO PRN (07:58)
[2017-08-27 08:09] VITALS: BP 186/104; PULSE 67; RESP 20; TEMP 98.3; O2SAT 95
[2017-08-27] MEDS: Fluticasone-Salmeterol 500-50mcg Diskus IH SCH (08:44)
[2017-08-27] MEDS: Azithromycin 500 MG in Sodium Chloride 0.9% 250 ML IVPB SCH (08:50)
[2017-08-27] MEDS ORDERED: Multivitamin With Minerals Tab PO SCH (09:00)
[2017-08-27 09:15] LABS: BLOOD UREA NITROGEN 33 mg/dl (9-20); CALCIUM 9.8 mg/dL (8.4-10.2); GFR AFRICAN-AMERICAN > 60; GFR NON-AFRICAN AMERICAN > 60
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
== END 2017-08-27 12:56 | disposition left against medical advice (07) ==
LOC: H.ER 23:14 → H.ERHOLD 08-26 06:31 → H.TEL 08-26 08:52
PROVIDERS: ADMIT Internal Medicine; ATTEND Internal Medicine
DX: J44.1 Chronic obstructive pulmonary disease with (acute) exacerbation (principal); I10 Essential (primary) hypertension; F10.129 Alcohol abuse with intoxication, unspecified; Y90.4 Blood alcohol level of 80-99 mg/100 ml; J45.909 Unspecified asthma, uncomplicated; B19.20 Unspecified viral hepatitis C without hepatic coma; G89.29 Other chronic pain; F19.10 Other psychoactive substance abuse, uncomplicated; K29.70 Gastritis, unspecified, without bleeding; F41.9 Anxiety disorder, unspecified; E78.00 Pure hypercholesterolemia, unspecified; K42.9 Umbilical hernia without obstruction or gangrene; K44.9 Diaphragmatic hernia without obstruction or gangrene; N40.0 Benign prostatic hyperplasia without lower urinary tract symptoms; M06.9 Rheumatoid arthritis, unspecified; M17.0 Bilateral primary osteoarthritis of knee; Z79.02 Long term (current) use of antithrombotics/antiplatelets; Z79.82 Long term (current) use of aspirin
CPT/HCPCS: 36415; 70450; 71250; 74176; 80048; 80053; 80320; 80324; 80345; 80346; 80349; 80353; 80358; 80361; 81003; 82436; 83690; 83992; 84132; 84300; 85025; 85610; 85730; 86850; 86900; 94640; 96361; 96365; 96366; 96375; 96376; 99285; G0378; J0456; J1885; J2270; J2405; J2930; J7030; Q9966

== ENCOUNTER 2018-01-15 22:41 | Inpatient (IN) | payer MEDICAID ==
[2018-01-15 22:41] VITALS: BMI 29.5
[2018-01-15] MEDS ORDERED: Albuterol-Ipratrop 3 mg / 0.5 (3 ml) UD ONE (23:05)
[2018-01-15] MEDS ORDERED: Albuterol-Ipratrop 3 mg / 0.5 (3 ml) UD INH STA (23:13)
[2018-01-15] MEDS ORDERED: methylPREDNISolone 125 MG in Sodium Chloride 0.9% 50 ML IVPB STA (23:17)
--- NOTE | 2018-01-15 23:25 | ED PDOC ---
HPI: SOB/CHF/COPD Time Seen by Provider: 01/15/18 23:22 Chief Complaint (Nursing): Shortness Of Breath Chief Complaint (Provider): sob History Per: Patient (52 y/o male h/o COPD here with sob/cough ongoing x 1 week. Admits etoh and heroine use. Admits ongoing smoking. Has tried use of albuterol neb without relief of medication. PMD JON MCELROY. ) Past Medical History Reviewed: Historical Data, Nursing Documentation, Vital Signs Vital Signs: Last Vital Signs Temp 98.0 F 01/15/18 22:59 Pulse 103 H 01/15/18 22:59 Resp 22 01/15/18 22:59 BP 143/91 H 01/15/18 22:59 Pulse Ox 90 L 01/15/18 22:59 - Medical History PMH: Arthritis (KNEES), Asthma, Benign Prostatic Hyperplasia, Bronchitis, COPD, Depression, Gastritis, Hepatitis (C), HTN, Hypercholesterolemia, Rheumatoid Arthritis, Sexually Transmitted Disease (syphillis), Chronic Pain (back pain) Denies: CHF, HIV, Chronic Kidney Disease - Family History Family History: States: Unknown Family Hx - Immunization History Hx Tetanus Toxoid Vaccination: No Hx Influenza Vaccination: No Hx Pneumococcal Vaccination: No - Home Medications Home Medications: Ambulatory Orders Medication Instructions Recorded Acetaminophen [Tylenol 325mg tab] 650 mg PO Q6 PRN #30 tab 03/08/17 Albuterol/Ipratropium [Duoneb 3 3 ml INH RQ4 PRN #1 b 03/08/17 mg/0.5 mg (3 ml) UD] Aspirin [Adult Low Dose Aspirin EC] 81 mg PO DAILY #30 03/08/17 Atorvastatin [Lipitor] 40 mg PO DAILY #30 tab 03/08/17 Bisoprolol [Zebeta] 5 mg PO DAILY #30 tab 03/08/17 Clopidogrel [Plavix] 75 mg PO DAILY #30 tab 03/08/17 Escitalopram [Lexapro] 10 mg PO DAILY #30 tab 03/08/17 Fluticasone/Salmeterol 500/50 1 puff IH BID #1 dsk 03/08/17 [Advair Diskus 500/50] Folic Acid 1 mg PO DAILY #30 tab 03/08/17 Gabapentin [Neurontin] 600 mg PO TID #90 tab 03/08/17 Lisinopril [Zestril] 10 mg PO DAILY #30 tab 03/08/17 Magnesium Oxide [Mag-Ox] 400 mg PO BID #60 tab 03/08/17 Thiamine [Vitamin B1 Tab] 100 mg PO DAILY #30 tab 03/08/17 amLODIPine [Norvasc] 10 mg PO DAILY #30 tab 03/08/17 cloNIDine [Catapres] 0.1 mg PO BID #60 tab 03/08/17 risperiDONE [RisperDAL Tab] 1 mg PO HS #30 tab 03/08/17 - Allergies Allergies/Adverse Reactions: Allergies Allergy/AdvReac Type Severity Reaction Status Date / Time No Known Allergies Allergy Verified 08/25/17 23:27 Review of Systems ROS Statement: Except As Marked, All Systems Reviewed And Found Negative Respiratory: Positive for: Cough, Shortness of Breath Physical Exam - Reviewed Nursing Documentation Reviewed: Yes Vital Signs Reviewed: Yes - Physical Exam Appears: Positive for: Well, Non-toxic, No Acute Distress Head Exam: Positive for: ATRAUMATIC, NORMAL INSPECTION, NORMOCEPHALIC Skin: Positive for: Normal Color, Warm, DRY Eye Exam: Positive for: EOMI, Normal appearance, PERRL ENT: Positive for: Normal ENT Inspection Neck: Positive for: Normal, Painless ROM Cardiovascular/Chest: Positive for: Regular Rate, Rhythm Respiratory: Positive for: Rhonchi Gastrointestinal/Abdominal: Positive for: Normal Exam, Soft Back: Positive for: Normal Inspection Extremity: Positive for: Normal ROM Neurologic/Psych: Positive for: Alert, Oriented - Laboratory Results Result Diagrams: 01/15/18 23:25 01/15/18 23:25 - ECG O2 Sat by Pulse Oximetry: 90 - Progress ED Course And Treament: solumedrol 125 mg iv x 1 dose duoneb x 3 doses cxr: ? infiltrate noted rocephin 1 gm iv zithromax 500mg iv x 1 dose d/w Dr. Paz Disposition - Clinical Impression Clinical Impression: COPD exacerbation - Patient ED Disposition Is Patient to be Admitted: Yes - Disposition Disposition Time: 01:14 Condition: FAIR - Pt Status Changed To: Hospital Disposition Of: Observation
[2018-01-15 23:38] LABS: BASO # 0.1 K/uL (0.0-0.2); BASO % 1.1 % (0.0-2.0); EOS # 1.7 K/uL (0.0-0.7); EOS % 24.8 % (0.0-4.0); HEMOGLOBIN 14.6 g/dL (12.0-18.0); LYMPH # 2.1 K/uL (1.0-4.3); LYMPH % 30.4 % (20.0-40.0); MEAN CELL VOLUME 94.5 fl (80.0-94.0); MEAN CORPUSCULAR HEMOGLOBIN 31.4 pg (27.0-31.0); MEAN CORPUSCULAR HGB CONC 33.2 g/dL (33.0-37.0); MEAN PLATELET VOLUME 7.8 fl (7.2-11.7); MONO # 0.6 K/uL (0.0-0.8); MONO % 8.7 % (0.0-10.0); NEUT # 2.4 K/uL (1.8-7.0); PLATELET COUNT 156 K/uL (130-400); RBC 4.65 Mil/uL (4.40-5.90); RED CELL DISTRIBUTION WIDTH 13.8 % (11.5-14.5); WHITE BLOOD COUNT 6.9 K/uL (4.8-10.8)
[2018-01-15 23:45] LABS: VENOUS BLOOD GAS BASE EXCESS 2.2 mmol/L (0.0-2.0); VENOUS BLOOD GAS PCO2 49 mmHg (40-60); VENOUS BLOOD GAS PO2 61 mm/Hg (30-55); VENOUS BLOOD PH 7.37 (7.32-7.43)
[2018-01-16 00:06] LABS: ALB/GLOB RATIO 1.2 (1.0-2.1); ALBUMIN 4.7 g/dL (3.5-5.0); ALT/SGPT 67 U/L (21-72); AST/SGOT 82 U/L (17-59); BLOOD UREA NITROGEN 13 mg/dl (9-20); CALCIUM 9.3 mg/dL (8.4-10.2); GFR NON-AFRICAN AMERICAN > 60
[2018-01-16 00:11] LABS: B-TYPE NATRIURETIC PEPTIDE 33.4 pg/ml (0-900)
[2018-01-16] MEDS ORDERED: Azithromycin 500 MG in Sodium Chloride 0.9% 250 ML IVPB STA (00:22)
[2018-01-16] MEDS ORDERED: cefTRIAXone (Rocephin) 1 gm Inj IVPB ONE (00:22)
[2018-01-16 00:54] LABS: EOSINOPHIL 23 % (0-7); LARGE PLATELETS PRESENT; LYMPHOCYTE 32 % (20-50); MONOCYTE 10 % (0-10); NEUTROPHIL 35 % (42-75); PLATELET ESTIMATE NORMAL (NORMAL); TOTAL CELLS COUNTED 100
[2018-01-16] MEDS ORDERED: Albuterol-Ipratrop 3 mg / 0.5 (3 ml) UD INH PRN (01:13)
[2018-01-16] MEDS ORDERED: Azithromycin 500 MG IV IVPB ONE (01:59)
[2018-01-16] MEDS ORDERED: cefTRIAXone (Rocephin) 1 gm Inj ONE (01:59)
[2018-01-16] MEDS ORDERED: Albuterol-Ipratrop 3 mg / 0.5 (3 ml) UD ONE ×3 (02:00→12:15)
[2018-01-16 02:44] LABS: BARBITURATES, UR NEGATIVE (NEGATIVE); BENZODIAZEPINES, UR NEGATIVE (NEGATIVE); OPIATES, UR POSITIVE (NEGATIVE); PHENCYCLIDINE, UR NEGATIVE (NEGATIVE)
[2018-01-16] MEDS: Magnesium Oxide 400 mg Tab UD PO SCH ×2 (08:37→16:01)
[2018-01-16] MEDS ORDERED: Azithromycin 500 MG in Sodium Chloride 0.9% 250 ML IVPB SCH (09:00)
--- NOTE | 2018-01-16 09:00 | RAD ---
Date of service: 01/16/2018 HISTORY: sob COMPARISON: Radiograph 02/22/2017. FINDINGS: LUNGS: No active pulmonary disease. PLEURA: No significant pleural effusion identified, no pneumothorax apparent. CARDIOVASCULAR: No aortic atherosclerotic calcification present. Normal cardiac size. No pulmonary vascular congestion. OSSEOUS STRUCTURES: No significant abnormalities. VISUALIZED UPPER ABDOMEN: Normal. OTHER FINDINGS: None. IMPRESSION: No interval acute cardiopulmonary disease appreciated.
[2018-01-16] MEDS: Fluticasone-Salmeterol 500-50mcg Diskus IH SCH ×2 (09:52→16:00)
[2018-01-16] MEDS: Albuterol-Ipratrop 3 mg / 0.5 (3 ml) UD INH SCH ×4 (09:52→19:00)
--- NOTE | 2018-01-16 10:06 | CARD ---
APPROVED REPORT Date of service: 01/15/2018 EKG Measurement Heart [id number] <Conclusion> Normal sinus rhythm Normal ECG
[2018-01-16] MEDS ORDERED: methylPREDNISolone 60 MG in Sodium Chloride 0.9% 50 ML IVPB SCH (11:15)
[2018-01-16] MEDS: Dextrose 5%/Lactated Ringer's 1,000 ML IV SCH ×3 (14:13→21:15)
[2018-01-16] MEDS ORDERED: Influenza Vaccine (5 YR UP)/PF 60 MCG/0.5 ML SYR IM ONE (20:02)
[2018-01-16] MEDS: guaiFENesin DM 200 mg-20 mg/10 ml UD PO PRN (21:24)
[2018-01-17] MEDS: Azithromycin 500 MG in Sodium Chloride 0.9% 250 ML IVPB SCH (01:25)
[2018-01-17] MEDS: Albuterol-Ipratrop 3 mg / 0.5 (3 ml) UD INH SCH ×4 (07:36→19:12)
[2018-01-17] MEDS: Fluticasone-Salmeterol 500-50mcg Diskus IH SCH ×2 (08:13→17:54)
[2018-01-17] MEDS: Magnesium Oxide 400 mg Tab UD PO SCH ×2 (08:17→17:56)
--- NOTE | 2018-01-17 08:25 | CP.PCM.HP ---
History of Present Illness - History of Present Illness History of Present Illness: This is a 52 y/o male admitted for worsening of cough for the past week. Denies any fever ,He has been a smoker for many years, He also claims to have problems with alcoholism and heroin. Has been noncompliant with his medications. Currently not working. Has a hx of depression HTN Present on Admission - Present on Admission Any Indicators Present on Admission: No History of DVT/PE: No History of Uncontrolled Diabetes: No Urinary Catheter: No Decubitus Ulcer Present: No Review of Systems - Respiratory Respiratory: Cough - Psychiatric Psychiatric: Anxiety, Depression, Mood Swings Past Patient History - Infectious Disease Hx of Infectious Diseases: None - Past Medical History & Family History Past Medical History?: Yes - Past Social History Smoking Status: Former Smoker - CARDIAC Hx Cardiac Disorders: Yes Hx Hypercholesterolemia: Yes Hx Hypertension: Yes - PULMONARY Hx Respiratory Disorders: Yes (COPD) Hx Asthma: Yes Hx Chronic Obstructive Pulmonary Disease (COPD): Yes Other/Comment: sinusitis - NEUROLOGICAL Hx Neurological Disorder: Yes HX Cerebrovascular Accident: Yes (no residual deficits) Hx Syncope: Yes (x3 since fall etoh percocet) - HEENT Hx HEENT Problems: No - RENAL Hx Chronic Kidney Disease: No - ENDOCRINE/METABOLIC Hx Endocrine Disorders: No - HEMATOLOGICAL/ONCOLOGICAL Hx Blood Disorders: No - INTEGUMENTARY Hx Dermatological Problems: No - MUSCULOSKELETAL/RHEUMATOLOGICAL Hx Musculoskeletal Disorders: Yes Hx Arthritis: Yes (KNEES) Hx Falls: No Hx Rheumatoid Arthritis: Yes - GASTROINTESTINAL Hx Gastrointestinal Disorders: No Hx Gastritis: Yes - GENITOURINARY/GYNECOLOGICAL Hx Genitourinary Disorders: No Hx Sexually Transmitted Disorders: Yes (syphillis) - PSYCHIATRIC Hx Depression: Yes Hx Substance Use: Yes - SURGICAL HISTORY Hx Surgeries: No - ANESTHESIA Hx Anesthesia: No Hx Anesthesia Reactions: No Hx Malignant Hyperthermia: No Meds Allergies/Adverse Reactions: Allergies Allergy/AdvReac Type Severity Reaction Status Date / Time No Known Allergies Allergy Verified 08/25/17 23:27 Physical Exam - Head Exam Head Exam: NORMAL INSPECTION - Eye Exam Eye Exam: Normal appearance - Respiratory Exam Respiratory Exam: Decreased Breath Sounds - Cardiovascular Exam Cardiovascular Exam: REGULAR RHYTHM - GI/Abdominal Exam GI & Abdominal Exam: Normal Bowel Sounds - Psychiatric Exam Psychiatric exam: Anxious, Depressed Results - Vital Signs Recent Vital Signs: Last Vital Signs Temp 97.6 F 01/17/18 08:03 Pulse 91 H 01/17/18 08:19 Resp 21 01/17/18 08:03 BP 168/99 H 01/17/18 08:19 Pulse Ox 96 01/17/18 08:03 - Labs Result Diagrams: 01/15/18 23:25 01/15/18 23:25 Assessment & Plan (1) COPD exacerbation Status: Acute (2) Alcoholism Status: Acute (3) Heroin addiction Status: Acute (4) Heroin abuse Status: Acute (5) Depression Status: Acute - Assessment and Plan (Free Text) Plan: start IV antibiotics solumedrol neb tx Psych eval benadry Librium
[2018-01-17] MEDS: Dextrose 5%/Lactated Ringer's 1,000 ML IV SCH (12:33)
[2018-01-17] MEDS ORDERED: Naloxone 0.4 mg/ml Inj (Adult) IVP ONE (17:39)
--- NOTE | 2018-01-17 17:48 | PCM.RRT ---
<Gustavo Perea - Last Filed: 01/17/18 17:59> [employer] Nurse Assessment - Situation Location: [facility] [employer] Reason for Call: Change in Mental Status [employer] Called By: RN - Respiratory Oxygen Delivery Method: Nasal Cannula - Stat Labs Ordered [employer] Stat Labs Ordered: CBC, BMP I.Reason for [employer] - A) Acute Change in Patient: (Select all that apply): Acute change in mental status Subjective: [employer] was called for 52 y/o male due to lethargy. Patient is drug abuser, initial VS: 167/100, 74HR, 99% Spo2 with BS of 167. Patient is easily arousable, opens eyes on commands but looks little drowsy. Narcan 0.4 given to the patient, CBC, CMP and Ammonia was done. Patient improved after narcan, VS: remained stable. [employer] was ended, f/u CBC, CMP and ammonia, monitor patient, will follow up as needed. -- Case discussed with Dr. Arellano -Gustavo Perea, PGY-II - Constitutional Appears: No Acute Distress - Head Head Exam: NORMAL INSPECTION - Eyes Eye Exam: Normal appearance - Respiratory Exam Respiratory Exam: Clear to Ausculation Bilateral, NORMAL BREATHING PATTERN - Cardiovascular Exam Cardiovascular Exam: REGULAR RHYTHM - GI/Abdominal Exam GI & Abdominal Exam: Soft, Normal Bowel Sounds - Neurological Exam Additional exam: sleepy but easily arousable <Matthew Arellano - Last Filed: 01/18/18 12:16> [employer] Nurse Assessment - Vital Signs Vital Signs: Rapid Response Vital Sign Blood Pressure 167/100 Pulse Rate 74 Respiratory Rate 18 Temperature 98 F Oxygen Saturation 99 - Vital Signs at end of [employer] Vital Signs at end of [employer]: Rapid Response End Vital Sign Blood Pressure 175/106 Pulse Rate 76 Respiratory Rate 18 Temperature 98.5 F O2 Sat by Pulse Oximetry 98 Attending/Attestation - Attestation I have personally seen and examined this patient.: Yes I have fully participated in the care of the patient.: Yes I have reviewed all pertinent clinical information, including history, physical exam and plan: Yes Notes (Text): 01/18/18 12:14 Patient seen and examined with resident. Case was discussed and agreed with assessment.
[2018-01-17 17:58] LABS: HEMOGLOBIN 15.1 g/dL (12.0-18.0); LYMPH # 0.4 K/uL (1.0-4.3); LYMPH % 5.3 % (20.0-40.0); MEAN CELL VOLUME 93.7 fl (80.0-94.0); MEAN CORPUSCULAR HEMOGLOBIN 31.1 pg (27.0-31.0); MEAN CORPUSCULAR HGB CONC 33.2 g/dL (33.0-37.0); MONO # 0.7 K/uL (0.0-0.8); MONO % 9.3 % (0.0-10.0); NEUT # 6.1 K/uL (1.8-7.0); NEUT % 85.4 % (50.0-75.0); RBC 4.85 Mil/uL (4.40-5.90); RED CELL DISTRIBUTION WIDTH 13.8 % (11.5-14.5); WHITE BLOOD COUNT 7.2 K/uL (4.8-10.8)
[2018-01-17 18:10] LABS: ALB/GLOB RATIO 1.2 (1.0-2.1); ALBUMIN 4.4 g/dL (3.5-5.0); ALT/SGPT 46 U/L (21-72); AST/SGOT 39 U/L (17-59); BLOOD UREA NITROGEN 15 mg/dl (9-20); CALCIUM 9.6 mg/dL (8.4-10.2); GFR NON-AFRICAN AMERICAN > 60
[2018-01-17] MEDS ORDERED: Enalaprilat 2.5 MG/2 ML IVP STA (18:16)
[2018-01-17] MEDS: MethylPREDNISolone 40 mg Vial IV SCH (21:03)
[2018-01-17] MEDS: guaiFENesin DM 200 mg-20 mg/10 ml UD PO PRN (22:07)
[2018-01-18] MEDS: Azithromycin 500 MG in Sodium Chloride 0.9% 250 ML IVPB SCH (02:36)
[2018-01-18] MEDS: Albuterol-Ipratrop 3 mg / 0.5 (3 ml) UD INH SCH ×4 (08:53→19:01)
[2018-01-18] MEDS: Fluticasone-Salmeterol 500-50mcg Diskus IH SCH ×2 (09:37→17:14)
[2018-01-18] MEDS: MethylPREDNISolone 40 mg Vial IV SCH (09:43)
[2018-01-18] MEDS: Magnesium Oxide 400 mg Tab UD PO SCH ×2 (09:46→17:13)
[2018-01-18] MEDS ORDERED: methylPREDNISolone 20 MG in Sodium Chloride 0.9% 50 ML IVPB ONE (11:25)
[2018-01-18] MEDS ORDERED: MethylPREDNISolone 40 mg Vial IVP ONE (11:45)
[2018-01-18 12:50] LABS: LIPASE 225 U/L (23-300)
--- NOTE | 2018-01-18 16:00 | CT ---
Date of service: 01/18/2018 PROCEDURE: CT Abdomen and Pelvis without intravenous contrast HISTORY: Perssitent abdominal pain. COMPARISON: None. TECHNIQUE: CT scan of the abdomen and pelvis was performed without administration of intravenous contrast. Oral contrast was not administered. Coronal and sagittal reformatted images were obtained. . Radiation dose: Total exam DLP = 787.41 mGy-cm. This CT exam was performed using one or more of the following dose reduction techniques: Automated exposure control, adjustment of the mA and/or kV according to patient size, and/or use of iterative reconstruction technique. FINDINGS: LOWER THORAX: The visualized lungs are clear. LIVER: Mild hepatomegaly. Diffuse fatty liver. There are few scattered simple cysts in the liver, the largest in the right hepatic lobe measures 10 mm. GALLBLADDER AND BILE DUCTS: No calcified gallstones. No biliary dilatation PANCREAS: Normal in size. No ductal dilatation. SPLEEN: Normal in size. ADRENALS: Normal in size. No discrete nodule. KIDNEYS AND URETERS: Normal in size without nephrolithiasis. No hydronephrosis. VASCULATURE: No aortic aneurysm. There are aortic atherosclerotic calcifications present. BOWEL: Evaluation of the bowel is limited in the absence of oral contrast. Allowing for this, the proximal small bowel loops are normal in caliber. There is fecalization of distal small bowel contents. There is moderate amount of stool in the colon. There is scattered left colonic diverticulosis without CT evidence for acute diverticulitis. APPENDIX: Normal appendix. PERITONEUM: No free fluid. No free air. LYMPH NODES: No enlarged lymph nodes. BLADDER: Well distended and grossly normal in appearance. REPRODUCTIVE: The prostate gland is normal in size BONES: No acute fracture. Multilevel degenerative changes. Diffuse idiopathic skeletal hyperostosis in the lower thoracic spine. OTHER FINDINGS: There are bilateral small fat containing inguinal hernias. There is a small sliding hiatal hernia. IMPRESSION: No acute abdominal or pelvic abnormality. Constipation. No evidence for bowel obstruction. Scattered left colonic diverticulosis without CT evidence for acute diverticulitis.
--- NOTE | 2018-01-18 16:12 | US ---
Date of service: 01/18/2018 HISTORY: Abdominal pain COMPARISON: None. TECHNIQUE: Sonographic evaluation of the abdomen. FINDINGS: LIVER: Measures 18.0 cm. There is diffuse increased echogenicity of the liver parenchyma. No mass. No intrahepatic bile duct dilatation. GALLBLADDER: There are no gallstones, wall thickening or pericholecystic fluid. The sonographic English's sign is negative. COMMON BILE DUCT: Measures 3.2 mm. No stones. No dilatation. PANCREAS: Unremarkable as visualized. No mass. No ductal dilatation. RIGHT KIDNEY: Measures 11.9cm. Normal echogenicity. No calculus, mass, or hydronephrosis. LEFT KIDNEY: Measures 11.7cm. Normal echogenicity. No calculus, mass, or hydronephrosis. SPLEEN: Normal in size and contour. No mass. AORTA: No aneurysmal dilatation. IVC: Unremarkable. OTHER FINDINGS: None. IMPRESSION: Mild hepatomegaly. Diffuse increased echogenicity in the liver may reflect hepatic steatosis however parenchymal infectious/ inflammatory etiologies cannot be entirely excluded. Clinical and laboratory correlation is advised. No cholelithiasis or biliary dilatation.
[2018-01-18] MEDS ORDERED: MethylPREDNISolone 40 mg Vial IV SCH (21:00)
[2018-01-18] MEDS: MethylPREDNISolone 40 mg Vial IVP SCH (21:51)
[2018-01-18 23:57] VITALS: RESP 20
[2018-01-19] MEDS: Azithromycin 500 MG in Sodium Chloride 0.9% 250 ML IVPB SCH (01:18)
[2018-01-19] MEDS: guaiFENesin DM 200 mg-20 mg/10 ml UD PO PRN (06:25)
[2018-01-19 07:00] LABS: HEMOGLOBIN 16.9 g/dL (12.0-18.0); MEAN CELL VOLUME 94.7 fl (80.0-94.0); MEAN CORPUSCULAR HEMOGLOBIN 31.7 pg (27.0-31.0); MEAN CORPUSCULAR HGB CONC 33.5 g/dL (33.0-37.0); RBC 5.35 Mil/uL (4.40-5.90); RED CELL DISTRIBUTION WIDTH 13.9 % (11.5-14.5); WHITE BLOOD COUNT 7.7 K/uL (4.8-10.8)
[2018-01-19] MEDS: Albuterol-Ipratrop 3 mg / 0.5 (3 ml) UD INH SCH ×2 (07:27→11:19)
[2018-01-19 07:37] LABS: ALB/GLOB RATIO 1.1 (1.0-2.1); ALBUMIN 4.3 g/dL (3.5-5.0); ALT/SGPT 58 U/L (21-72); AST/SGOT 49 U/L (17-59); BLOOD UREA NITROGEN 23 mg/dl (9-20); CALCIUM 9.4 mg/dL (8.4-10.2); GFR NON-AFRICAN AMERICAN > 60
[2018-01-19 08:44] VITALS: TEMP 97.7; O2SAT 99
[2018-01-19] MEDS: Fluticasone-Salmeterol 500-50mcg Diskus IH SCH (09:01)
[2018-01-19] MEDS: Magnesium Oxide 400 mg Tab UD PO SCH (09:01)
[2018-01-19] MEDS: MethylPREDNISolone 40 mg Vial IVP SCH (09:03)
[2018-01-19 12:06] VITALS: BP 128/84; PULSE 76
== END 2018-01-19 14:16 | disposition home or self-care (01) ==
LOC: H.ER 22:41 → H.ERHOLD 01-16 01:14 → H.MEDSURG1 01-16 14:55 → OBSVTOIN 01-18 11:26
PROVIDERS: ADMIT Family Medicine; ATTEND Family Medicine
DX: J44.1 Chronic obstructive pulmonary disease with (acute) exacerbation (principal); F11.20 Opioid dependence, uncomplicated; F10.20 Alcohol dependence, uncomplicated; E78.00 Pure hypercholesterolemia, unspecified; I10 Essential (primary) hypertension; M06.9 Rheumatoid arthritis, unspecified; M17.0 Bilateral primary osteoarthritis of knee; N40.0 Benign prostatic hyperplasia without lower urinary tract symptoms; F32.9 Major depressive disorder, single episode, unspecified; Z79.82 Long term (current) use of aspirin; Z91.14 Patient's other noncompliance with medication regimen; Z79.02 Long term (current) use of antithrombotics/antiplatelets; Z86.73 Personal history of transient ischemic attack (TIA), and cerebral infarction without residual deficits; Z87.891 Personal history of nicotine dependence; Z23 Encounter for immunization

== ENCOUNTER 2018-03-11 00:13 | Inpatient (IN) | payer MEDICAID ==
[2018-03-11 00:13] VITALS: BMI 29.5
[2018-03-11] MEDS ORDERED: Albuterol-Ipratrop 3 mg / 0.5 (3 ml) UD INH STA (00:25)
[2018-03-11] MEDS ORDERED: Magnesium Sulfate 2 gm/50 ml 2 GM/50 ML BAG IV STA ×2 (00:26→02:54)
[2018-03-11] MEDS ORDERED: Magnesium Sulfate 2 gm/50 ml 2 GM/50 ML BAG ONE (00:30)
--- NOTE | 2018-03-11 00:54 | ED PDOC ---
HPI: SOB/CHF/COPD Time Seen by Provider: 03/11/18 00:25 Chief Complaint (Nursing): Shortness Of Breath Chief Complaint (Provider): Shortness Of Breath History Per: Patient History/Exam Limitations: no limitations Onset/Duration Of Symptoms: Worse Since (x1 day) Associated Symptoms: denies: Fever Additional Complaint(s): 52 y/o male with history of COPD, arthritis, hypertension and gastritis presents to ER for evaluation of worsening shortness of breath onset 1 day. Patient reports associated dry cough and wheezing. He states he used his inhaler with no relief. Patient denies fever, vomiting or diarrhea. PMD: Gurwinder Mtz Past Medical History Reviewed: Historical Data, Nursing Documentation, Vital Signs Vital Signs: Last Vital Signs Temp 98.4 F 03/11/18 00:41 Pulse 82 03/11/18 00:41 Resp 24 03/11/18 00:41 BP 141/90 03/11/18 00:41 Pulse Ox 90 L 03/11/18 00:41 - Medical History PMH: Arthritis (KNEES), Asthma, Benign Prostatic Hyperplasia, Bronchitis, COPD, Depression, Gastritis, Hepatitis (C), HTN, Hypercholesterolemia, Rheumatoid Arthritis, Sexually Transmitted Disease (syphillis), Chronic Pain (back pain) Denies: CHF, HIV, Chronic Kidney Disease - Surgical History Surgical History: No Surg Hx - Family History Family History: States: Unknown Family Hx - Immunization History Hx Tetanus Toxoid Vaccination: No Hx Influenza Vaccination: No Hx Pneumococcal Vaccination: No - Home Medications Home Medications: Ambulatory Orders Medication Instructions Recorded RX: Albuterol/Ipratropium [Duoneb 3 ml INH RQ4 PRN #1 b 03/08/17 3 mg/0.5 mg (3 ml) UD] RX: Aspirin [Adult Low Dose 81 mg PO DAILY #30 abi. 03/08/17 Aspirin EC] RX: Folic Acid 1 mg PO DAILY #30 tab 03/08/17 RX: Gabapentin [Neurontin] 600 mg PO TID #90 tab 03/08/17 RX: Lisinopril [Zestril] 10 mg PO DAILY #30 tab 03/08/17 RX: Magnesium Oxide [Mag-Ox] 400 mg PO BID #60 tab 03/08/17 RX: Thiamine [Vitamin B1 Tab] 100 mg PO DAILY #30 tab 03/08/17 RX: amLODIPine [Norvasc] 10 mg PO DAILY #30 tab 03/08/17 RX: cloNIDine [Catapres] 0.1 mg PO BID #60 tab 03/08/17 RX: risperiDONE [RisperDAL Tab] 1 mg PO HS #30 tab 03/08/17 RX: Fluticasone/Salmeterol 500/50 1 puff IH BID #1 dsk 01/19/18 [Advair Diskus 500/50] RX: Metoprolol Tartrate [Lopressor] 100 mg PO DAILY 03/11/18 - Allergies Allergies/Adverse Reactions: Allergies Allergy/AdvReac Type Severity Reaction Status Date / Time No Known Allergies Allergy Verified 08/25/17 23:27 Review of Systems ROS Statement: Except As Marked, All Systems Reviewed And Found Negative Constitutional: Negative for: Fever Respiratory: Positive for: Cough (Dry), Shortness of Breath, Wheezing Gastrointestinal: Negative for: Vomiting, Diarrhea Physical Exam - Reviewed Nursing Documentation Reviewed: Yes Vital Signs Reviewed: Yes - Physical Exam Appears: Positive for: Non-toxic, No Acute Distress Head Exam: Positive for: ATRAUMATIC, NORMOCEPHALIC Skin: Positive for: Normal Color, Warm, Dry Eye Exam: Positive for: Normal appearance, EOMI, PERRL ENT: Positive for: Normal ENT Inspection Neck: Positive for: Normal, Painless ROM, Supple Cardiovascular/Chest: Positive for: Regular Rate, Rhythm. Negative for: Murmur Respiratory: Positive for: Wheezing (expiratory bilaterally), Respiratory Distress (mild), Other (Decreased air entry) Gastrointestinal/Abdominal: Positive for: Normal Exam, Soft. Negative for: Tenderness Extremity: Positive for: Normal ROM. Negative for: Pedal Edema, Swelling Neurologic/Psych: Positive for: Alert, Oriented (x3) - Laboratory Results Result Diagrams: 03/11/18 00:50 03/11/18 00:50 - ECG O2 Sat by Pulse Oximetry: 90 (RA) Pulse Ox Interpretation: Abnormal Medical Decision Making Medical Decision Makin 52 y/o male in respiratory distress insetting of COPD --Labs --CXR --Duoneb INH --SOLU-Medrol IV --Magnesium IVP 0256 Labs reviewed and show no significant abnormality and chest x-ray shows no active disease. Patient reports mild improvement in symptoms and O2 sat is between 90-92. Patient will be hospitalized for further observation. Case referred to Dr Perera (covers Dr Al Mtz) Diagnosis is COPD exacerbation. Scribe Attestation: Documented by Ekta Westfall, acting as a scribe for Quintin Menendez MD. Provider Scribe Attestation: All medical record entries made by the Scribe were at my direction and personally dictated by me. I have reviewed the chart and agree that the record accurately reflects my personal performance of the history, physical exam, medical decision making, and the department course for this patient. Disposition - Clinical Impression Clinical Impression: COPD exacerbation - Patient ED Disposition Is Patient to be Admitted: Yes Discussed With : Grover Perera - Disposition Disposition Time: 01:00 Condition: STABLE - Pt Status Changed To: Hospital Disposition Of: Observation
[2018-03-11 01:05] LABS: BASO # 0.1 K/uL (0.0-0.2); BASO % 0.8 % (0.0-2.0); EOS # 1.1 K/uL (0.0-0.7); EOS % 16.7 % (0.0-4.0); HEMOGLOBIN 13.9 g/dL (12.0-18.0); LYMPH # 2.1 K/uL (1.0-4.3); MEAN CORPUSCULAR HGB CONC 33.7 g/dL (33.0-37.0); MEAN PLATELET VOLUME 7.4 fl (7.2-11.7); MONO # 0.7 K/uL (0.0-0.8); MONO % 11.1 % (0.0-10.0); NEUT # 2.6 K/uL (1.8-7.0); NEUT % 39.4 % (50.0-75.0); RBC 4.32 Mil/uL (4.40-5.90); RED CELL DISTRIBUTION WIDTH 14.1 % (11.5-14.5); WHITE BLOOD COUNT 6.5 K/uL (4.8-10.8)
[2018-03-11 01:17] LABS: ALB/GLOB RATIO 1.4 (1.0-2.1); ALBUMIN 4.5 g/dL (3.5-5.0); ALT/SGPT 64 U/L (21-72); AST/SGOT 75 U/L (17-59); BLOOD UREA NITROGEN 17 mg/dl (9-20); CALCIUM 9.1 mg/dL (8.4-10.2); GFR NON-AFRICAN AMERICAN > 60
--- NOTE | 2018-03-11 07:55 | RAD ---
Date of service: 03/11/2018 HISTORY: chest pain COMPARISON: No prior. FINDINGS: LUNGS: No active pulmonary disease. PLEURA: No significant pleural effusion identified, no pneumothorax apparent. CARDIOVASCULAR: No aortic atherosclerotic calcification present. Normal cardiac size. No pulmonary vascular congestion. OSSEOUS STRUCTURES: No significant abnormalities. VISUALIZED UPPER ABDOMEN: Normal. OTHER FINDINGS: None. IMPRESSION: No active disease.
[2018-03-11] MEDS: Promethazine 6.25 MG/5 ML CUP PO SCH ×4 (09:40→21:19)
[2018-03-11] MEDS: Magnesium Oxide 400 mg Tab UD PO SCH ×2 (09:40→17:16)
--- NOTE | 2018-03-11 09:54 | CP.PCM.HP ---
History of Present Illness - History of Present Illness History of Present Illness: 52 y/o male w/ PMHx of COPD, arthritis, hypertension and gastritis, opioid/etoh/tobacco abuse admitted for copd exacerbation with dyspnea associated with cough x 1 day. CXR - nad O2 sat 90-92 Patient seen and examined at bedside. sob improving complaints of ruq pain complaints of etoh/drug withdrawals. denies cp, fever, vomiting. Present on Admission - Present on Admission Any Indicators Present on Admission: No Review of Systems - Review of Systems All systems: reviewed and no additional remarkable complaints except (mentioned above) Past Patient History - Infectious Disease Hx of Infectious Diseases: None - Past Medical History & Family History Past Medical History?: Yes Past Family History: Reviewed and not pertinent - Past Social History Smoking Status: Heavy Smoker > 10 Cigarettes Daily - CARDIAC Hx Congestive Heart Failure: No Hx Hypercholesterolemia: Yes Hx Hypertension: Yes - PULMONARY Hx Asthma: Yes Hx Bronchitis: Yes Hx Chronic Obstructive Pulmonary Disease (COPD): Yes - NEUROLOGICAL Hx Neurological Disorder: Yes HX Cerebrovascular Accident: Yes (no residual deficits) Hx Syncope: Yes (x3 since fall etoh percocet) - HEENT Hx HEENT Problems: No - RENAL Hx Chronic Kidney Disease: No - ENDOCRINE/METABOLIC Hx Endocrine Disorders: No - HEMATOLOGICAL/ONCOLOGICAL Hx Human Immunodeficiency Virus (HIV): No - INTEGUMENTARY Hx Dermatological Problems: No - MUSCULOSKELETAL/RHEUMATOLOGICAL Hx Arthritis: Yes (KNEES) Hx Rheumatoid Arthritis: Yes - GASTROINTESTINAL Hx Gastritis: Yes - GENITOURINARY/GYNECOLOGICAL Hx Sexually Transmitted Disorders: Yes (syphillis) - PSYCHIATRIC Hx Depression: Yes - SURGICAL HISTORY Hx Surgeries: No - ANESTHESIA Hx Anesthesia: No Hx Anesthesia Reactions: No Hx Malignant Hyperthermia: No Has any member of the family had a problem w/ anesthesia?: No Meds Allergies/Adverse Reactions: Allergies Allergy/AdvReac Type Severity Reaction Status Date / Time No Known Allergies Allergy Verified 08/25/17 23:27 Physical Exam - Constitutional Appears: No Acute Distress, Chronically Ill - Head Exam Head Exam: NORMAL INSPECTION - Eye Exam Eye Exam: Normal appearance - Respiratory Exam Respiratory Exam: Wheezes, NORMAL BREATHING PATTERN - Cardiovascular Exam Cardiovascular Exam: +S1, +S2 - GI/Abdominal Exam GI & Abdominal Exam: Soft, Tenderness (ruq) - Neurological Exam Neurological exam: Alert - Psychiatric Exam Psychiatric exam: Normal Affect, Normal Mood - Skin Skin Exam: Normal Color, Warm Results - Vital Signs Recent Vital Signs: Last Vital Signs Temp 97.5 F L 03/11/18 08:31 Pulse 78 03/11/18 09:51 Resp 20 03/11/18 08:31 BP 168/86 H 03/11/18 09:51 Pulse Ox 94 L 03/11/18 08:31 - Labs Result Diagrams: 03/11/18 00:50 03/11/18 00:50 Labs: Laboratory Results - last 24 hr 03/11/18 03/11/18 00:50 00:50 WBC 6.5 RBC 4.32 L Hgb 13.9 D Hct 41.1 MCV 95.0 H MCH 32.0 H MCHC 33.7 RDW 14.1 Plt Count 154 MPV 7.4 Neut % (Auto) 39.4 L Lymph % (Auto) 32.0 [place] % (Auto) 11.1 H Eos % (Auto) 16.7 H Baso % (Auto) 0.8 Neut # (Auto) 2.6 Lymph # (Auto) 2.1 [place] # (Auto) 0.7 Eos # (Auto) 1.1 H Baso # (Auto) 0.1 Sodium 139 Potassium 3.8 Chloride 99 Carbon Dioxide 23 Anion Gap 21 H BUN 17 Creatinine 0.8 Est GFR ( Amer) > 60 Est GFR (Non-Af Amer) > 60 Random Glucose 103 Calcium 9.1 Total Bilirubin 0.5 AST 75 H D ALT 64 Alkaline Phosphatase 86 Total Protein 7.7 Albumin 4.5 Globulin 3.3 Albumin/Globulin Ratio 1.4 Assessment & Plan (1) COPD exacerbation Status: Acute (2) Abdominal pain Status: Acute (3) Alcoholism Status: Chronic - Assessment and Plan (Free Text) Assessment: available diagnostic data reviewed monitor vitals monitor labs Cont meds Cont tx solumedrol duonebs obtain ruq u/s rest of plan as ordered
--- NOTE | 2018-03-11 13:08 | US ---
Date of service: 03/11/2018 HISTORY: ruq pain COMPARISON: None. TECHNIQUE: Sonographic evaluation of the abdomen. FINDINGS: LIVER: Measures cm. Increased echogenicity of the liver parenchyma. Left hepatic cyst measuring 2.6 centimeters. GALLBLADDER: Unremarkable. No gallstones. COMMON BILE DUCT: Measures mm. No stones. No dilatation. PANCREAS: Unremarkable as visualized. No mass. No ductal dilatation. RIGHT KIDNEY: Measures cm. Normal echogenicity. No calculus, mass, or hydronephrosis. LEFT KIDNEY: Measures cm. Normal echogenicity. No calculus, mass, or hydronephrosis. SPLEEN: Normal in size and contour. No mass. AORTA: No aneurysmal dilatation. IVC: Unremarkable. OTHER FINDINGS: None. IMPRESSION: Fatty liver.
[2018-03-11] MEDS: Albuterol-Ipratrop 3 mg / 0.5 (3 ml) UD INH SCH ×3 (13:30→19:56)
--- NOTE | 2018-03-11 22:58 | CARD ---
APPROVED REPORT Date of service: 03/11/2018 EKG Measurement Heart [id number] <Conclusion> Normal sinus rhythm Normal ECG
[2018-03-12] MEDS: Promethazine 6.25 MG/5 ML CUP PO SCH ×6 (01:51→21:00)
[2018-03-12] MEDS: Albuterol-Ipratrop 3 mg / 0.5 (3 ml) UD INH SCH ×4 (08:00→19:32)
[2018-03-12] MEDS: Magnesium Oxide 400 mg Tab UD PO SCH ×2 (09:52→16:37)
[2018-03-12] MEDS: Fluticasone-Salmeterol 500-50mcg Diskus IH SCH ×2 (11:34→16:37)
[2018-03-13] MEDS: Promethazine 6.25 MG/5 ML CUP PO SCH ×7 (01:11→21:26)
[2018-03-13] MEDS: Albuterol-Ipratrop 3 mg / 0.5 (3 ml) UD INH SCH ×4 (07:30→19:19)
[2018-03-13] MEDS: Fluticasone-Salmeterol 500-50mcg Diskus IH SCH ×2 (09:26→16:36)
[2018-03-13] MEDS: Magnesium Oxide 400 mg Tab UD PO SCH ×2 (09:28→16:37)
[2018-03-13] MEDS: MethylPREDNISolone 40 mg Vial IVP SCH (21:24)
--- NOTE | 2018-03-13 22:37 | CP.PCM.PN ---
Subjective - Date & Time of Evaluation Date of Evaluation: 03/12/18 Time of Evaluation: 10:00 - Subjective Subjective: Subjective patient seen and examined at bedside. Interim events noted No complaints offered at this time denies cp/sob/fever/chills. available diagnostic data reviewed Objective Vital Signs Stable - Constitutional Appears: Non-toxic, No Acute Distress - Head Exam Head Exam: NORMAL INSPECTION - Eye Exam Eye Exam: Normal appearance - Respiratory Exam Respiratory Exam: NORMAL BREATHING PATTERN, wheezing present - Cardiovascular Exam Cardiovascular Exam: +S1, +S2 - GI/Abdominal Exam GI & Abdominal Exam: Soft - Neurological Exam Neurological Exam: Alert, Awake - Psychiatric Exam Psychiatric exam: Normal Affect, Normal Mood - Skin Skin Exam: Normal Color, Warm Assessment and Plan monitor vitals monitor labs Cont meds Cont tx taper steroids rest of plan as ordered Assessment and Plan (1) COPD exacerbation Status: Acute (2) Abdominal pain Status: Acute (3) Alcoholism Status: Chronic
--- NOTE | 2018-03-13 22:38 | CP.PCM.PN ---
Subjective - Date & Time of Evaluation Date of Evaluation: 03/13/18 Time of Evaluation: 11:00 - Subjective Subjective: Subjective patient seen and examined at bedside. Interim events noted No complaints offered at this time denies cp/sob/fever/chills. available diagnostic data reviewed Objective Vital Signs Stable - Constitutional Appears: Non-toxic, No Acute Distress - Head Exam Head Exam: NORMAL INSPECTION - Eye Exam Eye Exam: Normal appearance - Respiratory Exam Respiratory Exam: NORMAL BREATHING PATTERN, wheezing present - Cardiovascular Exam Cardiovascular Exam: +S1, +S2 - GI/Abdominal Exam GI & Abdominal Exam: Soft - Neurological Exam Neurological Exam: Alert, Awake - Psychiatric Exam Psychiatric exam: Normal Affect, Normal Mood - Skin Skin Exam: Normal Color, Warm Assessment and Plan monitor vitals monitor labs Cont meds Cont tx taper steroids rest of plan as ordered Assessment and Plan (1) COPD exacerbation Status: Acute (2) Abdominal pain Status: Resolved (3) Alcoholism Status: Chronic
[2018-03-14] MEDS: Promethazine 6.25 MG/5 ML CUP PO SCH ×6 (01:10→21:16)
[2018-03-14] MEDS: Albuterol-Ipratrop 3 mg / 0.5 (3 ml) UD INH SCH ×4 (07:52→19:00)
[2018-03-14] MEDS: Fluticasone-Salmeterol 500-50mcg Diskus IH SCH ×2 (09:32→17:03)
[2018-03-14] MEDS: Magnesium Oxide 400 mg Tab UD PO SCH ×2 (09:34→17:04)
[2018-03-14] MEDS: MethylPREDNISolone 40 mg Vial IVP SCH ×2 (09:35→21:15)
--- NOTE | 2018-03-14 16:39 | CT ---
Date of service: 03/14/2018 PROCEDURE: CT Chest without contrast HISTORY: Cough. COMPARISON: Comparison made with CT scan abdomen pelvis 01/18/2018 which imaged both lung bases TECHNIQUE: Contiguous axial images were obtained through the chest without intravenous contrast enhancement. Sagittal and coronal reconstructions were performed. Radiation dose: Total exam DLP = 513.14 mGy-cm. This CT exam was performed using one or more of the following dose reduction techniques: Automated exposure control, adjustment of the mA and/or kV according to patient size, and/or use of iterative reconstruction technique. FINDINGS: LUNGS: There appears to be some minimal dependent/passive type atelectasis both posterior lower lung duvall.. Minimal linear scarring seen in both lung bases. No focal acute consolidation. MEDIASTINUM: Unremarkable thoracic aorta. No aneurysm. Ascending thoracic aorta measures approximately 3.5 cm. Descending thoracic aorta measures approximately 2.8 cm. Minor aortic atherosclerotic calcification Heart size within range of normal.. Main pulmonary artery unremarkable. Pulmonary trunk measures approximately 3.1 cm. The. Minor aortic atherosclerotic calcification. No significant mediastinal adenopathy. Evaluation for hilar adenopathy limited due to the lack circulating intravenous contrast material. Trachea midline and patent with no large central endoluminal lesions PLEURA: No pleural fluid. No pneumothorax. BONES: . multilevel degenerative spondylosis of the thoracic spine with multilevel exuberant anterior bridging osteophyte formation. UPPER ABDOMEN: Note again made of multiple small low-attenuation foci scattered throughout the hepatic parenchyma, the larger of which are consistent with small hepatic cysts with the smaller foci too small to characterize bone likely representing cysts as well... OTHER FINDINGS: None. IMPRESSION: Minor linear scarring changes seen both lung bases. No acute consolidation.
[2018-03-14] MEDS: Oxycodone/Acetaminophen 5/325 mg Tab PO PRN (17:15)
[2018-03-15] MEDS: Promethazine 6.25 MG/5 ML CUP PO SCH ×3 (01:00→09:27)
[2018-03-15] MEDS: Albuterol-Ipratrop 3 mg / 0.5 (3 ml) UD INH SCH ×2 (07:28→11:41)
[2018-03-15 08:09] VITALS: BP 135/84; PULSE 69; RESP 20; TEMP 97.6; O2SAT 99
[2018-03-15] MEDS: Oxycodone/Acetaminophen 5/325 mg Tab PO PRN (09:19)
[2018-03-15] MEDS: Fluticasone-Salmeterol 500-50mcg Diskus IH SCH ×2 (09:24→09:25)
[2018-03-15] MEDS: MethylPREDNISolone 40 mg Vial IVP SCH (09:27)
[2018-03-15] MEDS: Magnesium Oxide 400 mg Tab UD PO SCH (09:28)
--- NOTE | 2018-03-22 12:31 | PQF ---
PROVIDER RESPONSE TEXT: ETOH withdrawal was present during admission and treated as it was clinically significant REVIEWER QUERY TEXT: Clinical Significance Impression COPD exacerbation, no mention of withdrawal. Please clarify if the ETOH/ DRUG Withdrawal is a current condition or not. Nursing: Diaphoretic, tremors, anxious. Treatment: Ativan, Librium, Catapres The diagnosis documented below requires documentation to state the clinical significance: "complaints of etoh/drug withdrawals." Please respond and also state in your next progress note whether the condition is: -- Clinically insignificant -- Clinically significant, and to be coded and please also state why it is clinically significant -- Unable to determine clinical significance -- Other, please specify The patient's Clinical Indicators include: Nursing: Diaphoretic Query created by: Radha Summers on 03/14/2018 7:48 AM Electronically signed by: Grover Perera 03/22/2018 10:51 AM
--- NOTE | 2018-03-22 12:31 | PQF ---
PROVIDER RESPONSE TEXT: Provider was unable to determine a response for this query. REVIEWER QUERY TEXT: Rheumatoid Arthritis Specificity Such as -- Bursitis -- Felty?s syndrome -- Juvenile (Please specify type) -- Myopathy -- Nodule -- Organ involvement (Please indicate organ involved and specific disorder) -- Polyneuropathy -- With Rheumatoid Factor -- Other, please specify The patient's Clinical Indicators include: History of Rheumatoid Arthritis. Query created by: Radha Summers on 03/15/2018 8:36 AM Electronically signed by: Grover Perera 03/22/2018 10:51 AM
== END 2018-03-15 13:00 | disposition home or self-care (01) | DRG 88 ==
LOC: H.ER 00:13 → H.ERHOLD 02:53 → H.MEDSURG1 04:10 → OBSVTOIN 03-13 12:02
PROVIDERS: ADMIT Family Medicine; ATTEND Family Medicine
DX: J44.1 Chronic obstructive pulmonary disease with (acute) exacerbation (principal); B19.20 Unspecified viral hepatitis C without hepatic coma; F10.239 Alcohol dependence with withdrawal, unspecified; M06.9 Rheumatoid arthritis, unspecified; R10.11 Right upper quadrant pain; M17.0 Bilateral primary osteoarthritis of knee; I10 Essential (primary) hypertension; K29.70 Gastritis, unspecified, without bleeding; N40.0 Benign prostatic hyperplasia without lower urinary tract symptoms; F32.9 Major depressive disorder, single episode, unspecified; E78.00 Pure hypercholesterolemia, unspecified; G89.29 Other chronic pain; F17.210 Nicotine dependence, cigarettes, uncomplicated; Z79.82 Long term (current) use of aspirin; Y90.9 Presence of alcohol in blood, level not specified

== ENCOUNTER 2018-07-10 05:28 | Inpatient (IN) | payer MEDICAID ==
[2018-07-10 05:44] VITALS: BMI 27.9
[2018-07-10] MEDS ORDERED: Albuterol-Ipratrop 3 mg / 0.5 (3 ml) UD INH STA (05:48)
[2018-07-10] MEDS ORDERED: Magnesium Sulfate 2 gm/50 ml 2 GM/50 ML BAG IV STA (05:52)
[2018-07-10] MEDS ORDERED: Albuterol-Ipratrop 3 mg / 0.5 (3 ml) UD ONE ×2 (05:58→06:00)
[2018-07-10] MEDS ORDERED: Magnesium Sulfate 2 gm/50 ml 2 GM/50 ML BAG ONE (06:00)
--- NOTE | 2018-07-10 06:00 | ED PDOC ---
HPI: SOB/CHF/COPD Time Seen by Provider: 07/10/18 05:43 Chief Complaint (Nursing): Shortness Of Breath Chief Complaint (Provider): Shortness Of Breath History Per: Patient History/Exam Limitations: no limitations Onset/Duration Of Symptoms: Days (x 1 week) Current Symptoms Are (Timing): Still Present Current Respiratory Medications: Albuterol Additional Complaint(s): 52 year old male with a history of COPD, arthritis and gastritis p resents to the ED for evaluation of shortness of breath and a dry cough for one week. Patient reports he used his albuterol inhaler without relief. Patient has been seen by this provider before with similar presentation for COPD exacerbation. PMD; Dr. Bradford Paz Past Medical History Reviewed: Historical Data, Nursing Documentation, Vital Signs Vital Signs: Last Vital Signs Temp 98.0 F 07/10/18 05:44 Pulse 81 07/10/18 05:44 Resp 18 07/10/18 05:44 BP 140/93 H 07/10/18 05:44 Pulse Ox 98 07/10/18 05:44 Primary Care Provider: Bradford Paz - Medical History PMH: Arthritis (KNEES), Asthma, Benign Prostatic Hyperplasia, Bronchitis, COPD, Depression, Gastritis, Hepatitis (C), HTN, Hypercholesterolemia, Rheumatoid Arthritis, Sexually Transmitted Disease (syphillis), Chronic Pain (back pain) Denies: CHF, HIV, Chronic Kidney Disease - Surgical History Surgical History: No Surg Hx - Family History Family History: States: Unknown Family Hx - Social History Ex-Smoker (has not smoked in the last 12 months): Yes (Patient claims) - Immunization History Hx Tetanus Toxoid Vaccination: No Hx Influenza Vaccination: No Hx Pneumococcal Vaccination: No - Home Medications Home Medications: Ambulatory Orders Medication Instructions Recorded Aspirin [Adult Low Dose Aspirin EC] 81 mg PO DAILY #30 tablet. 03/08/17 Folic Acid 1 mg PO DAILY #30 tab 03/08/17 Gabapentin [Neurontin] 600 mg PO TID #90 tab 03/08/17 Lisinopril [Zestril] 10 mg PO DAILY #30 tab 03/08/17 Magnesium Oxide [Mag-Ox] 400 mg PO BID #60 tab 03/08/17 Thiamine [Vitamin B1 Tab] 100 mg PO DAILY #30 tab 03/08/17 amLODIPine [Norvasc] 10 mg PO DAILY #30 tab 03/08/17 cloNIDine [Catapres] 0.1 mg PO BID #60 tab 03/08/17 risperiDONE [RisperDAL Tab] 1 mg PO HS #30 tab 03/08/17 Metoprolol Tartrate [Lopressor] 100 mg PO DAILY 03/11/18 Dexamethasone [Taperdex] 1.5 mg PO DAILY #1 tab.ds.pk 03/15/18 Tiotropium Br/Olodaterol HCl 4 gm IH DAILY 30 Days mist.inhal 03/15/18 [Stiolto Respimat Inhal Fabius] traMADol [Ultram] 50 mg PO TID #15 tab 03/15/18 - Allergies Allergies/Adverse Reactions: Allergies Allergy/AdvReac Type Severity Reaction Status Date / Time No Known Allergies Allergy Verified 07/10/18 05:44 Review of Systems ROS Statement: Except As Marked, All Systems Reviewed And Found Negative Constitutional: Negative for: Fever, Chills Respiratory: Positive for: Cough, Shortness of Breath Gastrointestinal: Negative for: Nausea, Vomiting Physical Exam - Reviewed Nursing Documentation Reviewed: Yes - Physical Exam Appears: Positive for: Uncomfortable Head Exam: Positive for: ATRAUMATIC, NORMAL INSPECTION, NORMOCEPHALIC Skin: Positive for: Normal Color, Warm, Dry Eye Exam: Positive for: EOMI, Normal appearance, PERRL Neck: Positive for: Normal, Painless ROM, Supple Cardiovascular/Chest: Positive for: Regular Rate, Rhythm. Negative for: Murmur Respiratory: Positive for: Rhonchi (inspiratory), Wheezing (expiratory wheezing), Respiratory Distress (moderate) Gastrointestinal/Abdominal: Positive for: Normal Exam, Soft. Negative for: Tenderness, Mass, Guarding Back: Positive for: Normal Inspection. Negative for: L CVA Tenderness, R CVA Tenderness Extremity: Positive for: Normal ROM (x 4). Negative for: Deformity Neurological/Psych: Positive for: Awake, Alert, Normal Tone, Oriented (x3). Negative for: Motor/Sensory Deficits - Laboratory Results Result Diagrams: 07/10/18 06:05 07/10/18 06:05 - ECG O2 Sat by Pulse Oximetry: 98 (RA) Pulse Ox Interpretation: Normal - Critical Care Total Time (In Min): 30 Documented Critical Care: Time excludes all time spent performint seperately billable procedures Medical Decision Making Medical Decision Makin:55 Impression: respiratory distress is setting of COPD exacerbation Plan: --EKG --BNP --CMP --CBC --CXr --Duoneb 9 ml INH --Peak flow pre/post --Magnesium Sulfate 2 gm in 50 ml IVPB --Solu-medrol 125 mg IVP Patient will be admitted to Dr. Perera, who is covering for Dr. Paz, to observation for COPD exacerbation. Scribe Attestation: Documented by Carin Smith, acting as a scribe Eh Menendez MD Provider Scribe Attestation: All medical record entries made by the Scribe were at my direction and personally dictated by me. I have reviewed the chart and agree that the record accurately reflects my personal performance of the history, physical exam, medical decision making, and the department course for this patient. I have also personally directed, reviewed, and agree with the discharge instructions and disposition Disposition - Clinical Impression Clinical Impression: COPD exacerbation - Patient ED Disposition Is Patient to be Admitted: Yes - Disposition Disposition Time: 06:05 Condition: FAIR - Pt Status Changed To: Hospital Disposition Of: Observation
[2018-07-10 06:21] LABS: BASO % 0.8 % (0.0-2.0); EOS # 1.1 K/uL (0.0-0.7); EOS % 17.4 % (0.0-4.0); HEMOGLOBIN 13.8 g/dL (12.0-18.0); LYMPH # 1.6 K/uL (1.0-4.3); LYMPH % 24.6 % (20.0-40.0); MEAN CELL VOLUME 94.6 fl (80.0-94.0); MEAN CORPUSCULAR HEMOGLOBIN 31.8 pg (27.0-31.0); MEAN CORPUSCULAR HGB CONC 33.6 g/dL (33.0-37.0); MEAN PLATELET VOLUME 7.4 fl (7.2-11.7); MONO # 0.8 K/uL (0.0-0.8); MONO % 12.4 % (0.0-10.0); NEUT # 2.9 K/uL (1.8-7.0); NEUT % 44.8 % (50.0-75.0); NRBC % 0.1 % (0.0-0.0); RBC 4.35 Mil/uL (4.40-5.90); RED CELL DISTRIBUTION WIDTH 13.3 % (11.5-14.5); WHITE BLOOD COUNT 6.6 K/uL (4.8-10.8)
[2018-07-10 06:31] LABS: ALB/GLOB RATIO 1.4 (1.0-2.1); ALBUMIN 4.6 g/dL (3.5-5.0); ALT/SGPT 74 U/L (21-72); AST/SGOT 85 U/L (17-59); BLOOD UREA NITROGEN 17 mg/dl (9-20); CALCIUM 9.4 mg/dL (8.4-10.2); GFR NON-AFRICAN AMERICAN > 60
[2018-07-10 06:38] LABS: B-TYPE NATRIURETIC PEPTIDE 48.7 pg/ml (0-900)
--- NOTE | 2018-07-10 08:02 | RAD ---
Date of service: 07/10/2018 HISTORY: chest pain COMPARISON: Portable chest 03/11/2018. TECHNIQUE: 1 view obtained. FINDINGS: LUNGS: No active pulmonary disease. PLEURA: No significant pleural effusion identified, no pneumothorax apparent. CARDIOVASCULAR: No aortic atherosclerotic calcification present. Normal cardiac size. No pulmonary vascular congestion. OSSEOUS STRUCTURES: No significant abnormalities. VISUALIZED UPPER ABDOMEN: Normal. OTHER FINDINGS: None. IMPRESSION: No interval acute cardiopulmonary disease appreciated.
[2018-07-10] MEDS: Albuterol-Ipratrop 3 mg / 0.5 (3 ml) UD INH SCH ×4 (09:44→19:16)
[2018-07-10] MEDS: Pantoprazole 40 mg EC Tab PO SCH (09:50)
[2018-07-10] MEDS ORDERED: methylPREDNISolone 60 MG in Sodium Chloride 0.9% 50 ML IVPB SCH (10:00)
[2018-07-10] MEDS: Enoxaparin 40 mg Syringe SC SCH (10:44)
[2018-07-10] MEDS: Metoprolol Succinate 100 mg XL Tab PO SCH (10:45)
[2018-07-10] MEDS: Promethazine DM 6.25 mg-15 mg/5 ml Syrup PO PRN (12:37)
[2018-07-10] MEDS: Albuterol-Ipratrop 3 mg / 0.5 (3 ml) UD INH PRN (12:42)
[2018-07-10] MEDS: Oxycodone/Acetaminophen 5/325 mg Tab PO PRN ×2 (15:20→21:54)
--- NOTE | 2018-07-10 17:24 | CP.PCM.CON ---
History of Present Illness - History of Present Illness History of Present Illness: Patient with acute on chronic lower back pain, admitted for COPD exacerbation, is referred for pain management. Patient states that he has multiple disc herniations in the neck and lower back and has been given Percocet by his PMD recently, after failing Tramadol previously. [place] TAX EXAMINING TECHNICIAN confirmed that he was given two #15 Percocet prescriptions in recent months. He states the pain is in the lower back and radiates down both legs bilaterally. Past Patient History - Infectious Disease Hx of Infectious Diseases: None - Past Medical History & Family History Past Medical History?: Yes - Past Social History Smoking Status: Heavy Smoker > 10 Cigarettes Daily - CARDIAC Hx Congestive Heart Failure: No Hx Hypercholesterolemia: Yes Hx Hypertension: Yes - PULMONARY Hx Asthma: Yes Hx Bronchitis: Yes Hx Chronic Obstructive Pulmonary Disease (COPD): Yes - NEUROLOGICAL Hx Neurological Disorder: Yes HX Cerebrovascular Accident: Yes (no residual deficits) Hx Syncope: Yes (x3 since fall etoh percocet) - HEENT Hx HEENT Problems: No - RENAL Hx Chronic Kidney Disease: No - ENDOCRINE/METABOLIC Hx Endocrine Disorders: No - HEMATOLOGICAL/ONCOLOGICAL Hx AIDS: No Hx Human Immunodeficiency Virus (HIV): No - INTEGUMENTARY Hx Dermatological Problems: No - MUSCULOSKELETAL/RHEUMATOLOGICAL Hx Arthritis: Yes (KNEES) Hx Falls: No Hx Rheumatoid Arthritis: Yes - GASTROINTESTINAL Hx Gastritis: Yes - GENITOURINARY/GYNECOLOGICAL Hx Sexually Transmitted Disorders: Yes (syphillis) - PSYCHIATRIC Hx Depression: Yes Hx Substance Use: Yes - SURGICAL HISTORY Hx Surgeries: No - ANESTHESIA Hx Anesthesia: No Hx Anesthesia Reactions: No Hx Malignant Hyperthermia: No Meds Allergies/Adverse Reactions: Allergies Allergy/AdvReac Type Severity Reaction Status Date / Time No Known Allergies Allergy Verified 07/10/18 05:44 - Medications Medications: Current Medications Albuterol/Ipratropium (Duoneb 3 Mg/0.5 Mg (3 Ml) Ud) 3 ml INH RQID YEYO Last Admin: 07/10/18 15:12 Dose: 3 ml Albuterol/Ipratropium (Duoneb 3 Mg/0.5 Mg (3 Ml) Ud) 3 ml INH RQ4 PRN PRN Reason: Shortness of Breath Last Admin: 07/10/18 12:42 Dose: 3 ml Amlodipine Besylate (Norvasc) 10 mg PO DAILY [facility] Last Admin: 07/10/18 09:50 Dose: 10 mg Aspirin (Ecotrin) 81 mg PO DAILY [facility] Last Admin: 07/10/18 09:49 Dose: 81 mg Clonidine HCl (Catapres) 0.1 mg PO BID [facility] Last Admin: 07/10/18 17:05 Dose: 0.1 mg Enoxaparin Sodium (Lovenox) 40 mg SC DAILY [facility]; Protocol Last Admin: 07/10/18 10:44 Dose: 40 mg Folic Acid (Folic Acid) 1 mg PO DAILY [facility] Gabapentin (Neurontin) 600 mg PO TID [facility] Last Admin: 07/10/18 17:04 Dose: 600 mg Lisinopril (Zestril) 10 mg PO DAILY [facility] Methylprednisolone (Solu-Medrol) 60 mg IV Q6H [facility] Last Admin: 07/10/18 15:22 Dose: 60 mg Metoprolol Succinate (Toprol Xl) 100 mg PO DAILY [facility] Last Admin: 07/10/18 10:45 Dose: 100 mg Oxycodone/Acetaminophen (Percocet 5/325 Mg Tab) 1 tab PO Q6 PRN PRN Reason: Pain, severe (8-10) Stop: 07/13/18 10:55 Last Admin: 07/10/18 15:20 Dose: 1 tab Pantoprazole Sodium (Protonix Ec Tab) 40 mg PO DAILY [facility] Last Admin: 07/10/18 09:50 Dose: 40 mg Promethazine HCl/Dextromethorphan (Phenergan Dm Syrup) 5 ml PO Q6 PRN PRN Reason: Cough Last Admin: 07/10/18 12:37 Dose: 5 ml Risperidone (Risperdal Tab) 1 mg PO [facility] Thiamine HCl (Vitamin B1 Tab) 100 mg PO DAILY [facility] Physical Exam - Back Exam Back exam: paraspinal tenderness, vertebral tenderness Results - Vital Signs Recent Vital Signs: Last Vital Signs Temp 97.7 F 07/10/18 15:52 Pulse 64 07/10/18 17:05 Resp 20 07/10/18 15:52 BP 125/73 07/10/18 17:05 Pulse Ox 92 L 07/10/18 15:52 - Labs Result Diagrams: 07/10/18 06:05 07/10/18 06:05 Labs: Laboratory Results - last 24 hr 07/10/18 07/10/18 06:05 06:05 WBC 6.6 RBC 4.35 L Hgb 13.8 Hct 41.1 MCV 94.6 H MCH 31.8 H MCHC 33.6 RDW 13.3 Plt Count 144 MPV 7.4 Neut % (Auto) 44.8 L Lymph % (Auto) 24.6 [place] % (Auto) 12.4 H Eos % (Auto) 17.4 H Baso % (Auto) 0.8 Neut # (Auto) 2.9 Lymph # (Auto) 1.6 [place] # (Auto) 0.8 Eos # (Auto) 1.1 H Baso # (Auto) 0.0 Sodium 142 Potassium 4.5 Chloride 102 Carbon Dioxide 28 Anion Gap 17 BUN 17 Creatinine 0.7 L Est GFR ( Amer) > 60 Est GFR (Non-Af Amer) > 60 Random Glucose 97 Calcium 9.4 Total Bilirubin 0.6 AST 85 H ALT 74 H Alkaline Phosphatase 83 NT-Pro-B Natriuret Pep 48.7 Total Protein 7.8 Albumin 4.6 Globulin 3.3 Albumin/Globulin Ratio 1.4 Assessment & Plan - Assessment and Plan (Free Text) Assessment: 52 yo man w/ acute on chronic lower back pain. Pain issue is not acute, and doesn't need to be addressed right now. - please retrieve old lumbar MRI for review - continue Percocet for now - add muscle relaxant and NSAIDs to regimen - PT evaluation - can consider intervention during this hospitalization once COPD exacerbation resolves
--- NOTE | 2018-07-10 17:44 | CP.PCM.HP ---
History of Present Illness - History of Present Illness History of Present Illness: 52 y/o male w/ PMHx of COPD, arthritis, hypertension and gastritis, opioid/etoh/tobacco abuse admitted for copd exacerbation with dyspnea associated with cough x 1 week. CXR - nad Patient seen and examined at bedside. sob improving though continues with symptoms complaints of lower back pain, acute on chronic denies cp, fever, chills, abdominal pain meds: as per chart Allergies: as per chart fam hx: non contributory Present on Admission - Present on Admission Any Indicators Present on Admission: No Review of Systems - Review of Systems All systems: reviewed and no additional remarkable complaints except (mentioned above) Past Patient History - Infectious Disease Hx of Infectious Diseases: None - Past Medical History & Family History Past Medical History?: Yes - Past Social History Smoking Status: Heavy Smoker > 10 Cigarettes Daily - CARDIAC Hx Congestive Heart Failure: No Hx Hypercholesterolemia: Yes Hx Hypertension: Yes - PULMONARY Hx Asthma: Yes Hx Bronchitis: Yes Hx Chronic Obstructive Pulmonary Disease (COPD): Yes - NEUROLOGICAL Hx Neurological Disorder: Yes HX Cerebrovascular Accident: Yes (no residual deficits) Hx Syncope: Yes (x3 since fall etoh percocet) - HEENT Hx HEENT Problems: No - RENAL Hx Chronic Kidney Disease: No - ENDOCRINE/METABOLIC Hx Endocrine Disorders: No - HEMATOLOGICAL/ONCOLOGICAL Hx AIDS: No Hx Human Immunodeficiency Virus (HIV): No - INTEGUMENTARY Hx Dermatological Problems: No - MUSCULOSKELETAL/RHEUMATOLOGICAL Hx Arthritis: Yes (KNEES) Hx Falls: No Hx Rheumatoid Arthritis: Yes - GASTROINTESTINAL Hx Gastritis: Yes - GENITOURINARY/GYNECOLOGICAL Hx Sexually Transmitted Disorders: Yes (syphillis) - PSYCHIATRIC Hx Depression: Yes Hx Substance Use: Yes - SURGICAL HISTORY Hx Surgeries: No - ANESTHESIA Hx Anesthesia: No Hx Anesthesia Reactions: No Hx Malignant Hyperthermia: No Meds Allergies/Adverse Reactions: Allergies Allergy/AdvReac Type Severity Reaction Status Date / Time No Known Allergies Allergy Verified 07/10/18 05:44 Physical Exam - Constitutional Appears: Non-toxic, Chronically Ill - Head Exam Head Exam: NORMAL INSPECTION - Eye Exam Eye Exam: Normal appearance - Neck Exam Neck exam: Positive for: Normal Inspection - Respiratory Exam Respiratory Exam: Wheezes, NORMAL BREATHING PATTERN - Cardiovascular Exam Cardiovascular Exam: +S1, +S2 - GI/Abdominal Exam GI & Abdominal Exam: Soft - Neurological Exam Neurological exam: Alert, Oriented x3 - Psychiatric Exam Psychiatric exam: Normal Affect, Normal Mood - Skin Skin Exam: Normal Color, Warm Results - Vital Signs Recent Vital Signs: Last Vital Signs Temp 97.7 F 07/10/18 15:52 Pulse 64 07/10/18 17:05 Resp 20 07/10/18 15:52 BP 125/73 07/10/18 17:05 Pulse Ox 92 L 07/10/18 15:52 - Labs Result Diagrams: 07/10/18 06:05 07/10/18 06:05 Labs: Laboratory Results - last 24 hr 07/10/18 07/10/18 06:05 06:05 WBC 6.6 RBC 4.35 L Hgb 13.8 Hct 41.1 MCV 94.6 H MCH 31.8 H MCHC 33.6 RDW 13.3 Plt Count 144 MPV 7.4 Neut % (Auto) 44.8 L Lymph % (Auto) 24.6 [place] % (Auto) 12.4 H Eos % (Auto) 17.4 H Baso % (Auto) 0.8 Neut # (Auto) 2.9 Lymph # (Auto) 1.6 [place] # (Auto) 0.8 Eos # (Auto) 1.1 H Baso # (Auto) 0.0 Sodium 142 Potassium 4.5 Chloride 102 Carbon Dioxide 28 Anion Gap 17 BUN 17 Creatinine 0.7 L Est GFR ( Amer) > 60 Est GFR (Non-Af Amer) > 60 Random Glucose 97 Calcium 9.4 Total Bilirubin 0.6 AST 85 H ALT 74 H Alkaline Phosphatase 83 NT-Pro-B Natriuret Pep 48.7 Total Protein 7.8 Albumin 4.6 Globulin 3.3 Albumin/Globulin Ratio 1.4 Assessment & Plan (1) COPD exacerbation Status: Acute (2) Back pain Status: Acute (3) Alcoholism Status: Chronic - Assessment and Plan (Free Text) Plan: available diagnostic data reviewed monitor vitals monitor labs Cont meds Cont tx solumedrol duonebs pain management consult rest of plan as ordered
--- NOTE | 2018-07-10 19:24 | CARD ---
APPROVED REPORT Date of service: 07/10/2018 EKG Measurement Heart [id number] <Conclusion> Normal sinus rhythm Normal ECG
[2018-07-11] MEDS: Albuterol-Ipratrop 3 mg / 0.5 (3 ml) UD INH PRN (06:00)
[2018-07-11] MEDS: Oxycodone/Acetaminophen 5/325 mg Tab PO PRN ×3 (06:13→22:36)
[2018-07-11 07:00] LABS: HEMOGLOBIN 14.3 g/dL (12.0-18.0); MEAN CORPUSCULAR HEMOGLOBIN 31.5 pg (27.0-31.0); MEAN CORPUSCULAR HGB CONC 33.5 g/dL (33.0-37.0); RBC 4.53 Mil/uL (4.40-5.90); WHITE BLOOD COUNT 6.7 K/uL (4.8-10.8)
[2018-07-11 07:26] LABS: ALB/GLOB RATIO 1.3 (1.0-2.1); ALBUMIN 4.3 g/dL (3.5-5.0); ALT/SGPT 71 U/L (21-72); AST/SGOT 48 U/L (17-59); BLOOD UREA NITROGEN 19 mg/dl (9-20); CALCIUM 9.7 mg/dL (8.4-10.2); GFR NON-AFRICAN AMERICAN > 60; URIC ACID 4.7 mg/Dl (3.5-8.5)
[2018-07-11] MEDS: Albuterol-Ipratrop 3 mg / 0.5 (3 ml) UD INH SCH ×4 (07:40→23:21)
[2018-07-11] MEDS: Pantoprazole 40 mg EC Tab PO SCH (08:31)
[2018-07-11] MEDS: Metoprolol Succinate 100 mg XL Tab PO SCH (08:31)
[2018-07-11] MEDS: Enoxaparin 40 mg Syringe SC SCH (08:32)
[2018-07-11] MEDS: Azithromycin 500 MG in Sodium Chloride 0.9% 250 ML IVPB SCH (12:24)
--- NOTE | 2018-07-11 13:22 | CP.PCM.CON ---
History of Present Illness - History of Present Illness History of Present Illness: Pulmonary consult for a 52 Y/O M, admitted to [facility] on 07/10/18 due to COPD Exacerbation. As per Pt, multiple chronic medical conditions, including COPD since 2004, heavy chronic smoker ( 1-2 PPD x 20 yrs, stopped last week), CVA with no deficit. Pt came to hospital on 07/10/18 c/o of gradually increased to moderate SOB x one week, associated to intermittent cough, productive clear thin sputum, chest congestion. Pt was using Nebulizer Tx at home with no relief. Worsening symptoms: GOETZ, dyspnea at rest. Acute on Chronic Back pain 2nd to several disk herniations. Aggravated factor: Exercise. Pt denied: fever, chills, n/v/d, abdominal pain, painful urination, CP, palpitations, recent travel out of [facility]. Other PMHx: Opioid/Etoh/Tobacco abuse, Hepatitis C, Syphilis, R/A, BPH, Depression. CXR: No acute cardiopulmonary disease. EKG: Normal sinus rhythm. Review of Systems - Constitutional Constitutional: Other (negative) - EENT Eyes: Other (negative) Ears: Other (negative) Nose/Mouth/Throat: Other (negative) - Cardiovascular Cardiovascular: Other (negative) - Respiratory Respiratory: Cough, Dyspnea, Dyspnea on Exertion, Chest Congestion - Gastrointestinal Gastrointestinal: Other (negative) - Genitourinary Genitourinary: Other (negative) - Musculoskeletal Musculoskeletal: Back Pain, Radiating Pain into Limb - Integumentary Integumentary: Other (negative) - Neurological Neurological: Other (negative) - Psychiatric Psychiatric: Anxiety, Depression - Endocrine Endocrine: Other (negative) - Hematologic/Lymphatic Hematologic: Other (negative) Past Patient History - Infectious Disease Hx of Infectious Diseases: None - Past Medical History & Family History Past Medical History?: Yes Pertinent Family History: Daughter and Son Hx of Asthma. - Past Social History Smoking Status: Heavy Smoker > 10 Cigarettes Daily Alcohol: Other (Hx abuse) Drugs: Opiates (Hx of abuse) Home Situation {Lives}: With Family - CARDIAC Hx Cardiac Disorders: Yes Hx Congestive Heart Failure: No Hx Hypercholesterolemia: Yes Hx Hypertension: Yes - PULMONARY Hx Respiratory Disorders: Yes Hx Asthma: No Hx Bronchitis: Yes Hx Chronic Obstructive Pulmonary Disease (COPD): Yes - NEUROLOGICAL Hx Neurological Disorder: Yes HX Cerebrovascular Accident: Yes (no residual deficits) Hx Syncope: Yes (x3 since fall etoh percocet) - HEENT Hx HEENT Problems: No - RENAL Hx Chronic Kidney Disease: No - ENDOCRINE/METABOLIC Hx Endocrine Disorders: No - HEMATOLOGICAL/ONCOLOGICAL Hx Blood Disorders: Yes Hx Hepatitis C: Yes Hx Human Immunodeficiency Virus (HIV): No - INTEGUMENTARY Hx Dermatological Problems: No - MUSCULOSKELETAL/RHEUMATOLOGICAL Hx Musculoskeletal Disorders: Yes Hx Arthritis: Yes (KNEES) Hx Back Pain: Yes Hx Rheumatoid Arthritis: Yes - GASTROINTESTINAL Hx Gastrointestinal Disorders: Yes Hx Gastritis: Yes - GENITOURINARY/GYNECOLOGICAL Hx Genitourinary Disorders: Yes (BPH) Hx Sexually Transmitted Disorders: Yes (syphillis) - PSYCHIATRIC Hx Psychophysiologic Disorder: Yes Hx Depression: Yes - SURGICAL HISTORY Hx Surgeries: No - ANESTHESIA Hx Anesthesia: No Hx Anesthesia Reactions: No Hx Malignant Hyperthermia: No Meds Allergies/Adverse Reactions: Allergies Allergy/AdvReac Type Severity Reaction Status Date / Time No Known Allergies Allergy Verified 07/10/18 05:44 - Medications Medications: Current Medications Albuterol/Ipratropium (Duoneb 3 Mg/0.5 Mg (3 Ml) Ud) 3 ml INH RQ4 PRN PRN Reason: Shortness of Breath Last Admin: 07/11/18 06:00 Dose: 3 ml Albuterol/Ipratropium (Duoneb 3 Mg/0.5 Mg (3 Ml) Ud) 3 ml INH RQ4 [facility] Amlodipine Besylate (Norvasc) 10 mg PO DAILY [facility] Last Admin: 07/11/18 08:30 Dose: 10 mg Aspirin (Ecotrin) 81 mg PO DAILY [facility] Last Admin: 07/11/18 08:31 Dose: 81 mg Chlordiazepoxide (Librium) 25 mg PO Q8 [facility] Last Admin: 07/11/18 06:39 Dose: 25 mg Clonidine HCl (Catapres) 0.1 mg PO BID [facility] Last Admin: 07/11/18 08:33 Dose: 0.1 mg Enoxaparin Sodium (Lovenox) 40 mg SC DAILY [facility]; Protocol Last Admin: 07/11/18 08:32 Dose: 40 mg Folic Acid (Folic Acid) 1 mg PO DAILY [facility] Last Admin: 07/11/18 08:30 Dose: 1 mg Gabapentin (Neurontin) 600 mg PO TID [facility] Last Admin: 07/11/18 12:22 Dose: 600 mg Azithromycin 500 mg/ Sodium (Chloride) 250 mls @ 250 mls/hr IVPB DAILY [facility]; Protocol Last Admin: 07/11/18 12:24 Dose: 250 mls/hr Lisinopril (Zestril) 10 mg PO DAILY [facility] Last Admin: 07/11/18 08:33 Dose: 10 mg Methylprednisolone (Solu-Medrol) 60 mg IV Q6H [facility] Metoprolol Succinate (Toprol Xl) 100 mg PO DAILY [facility] Last Admin: 07/11/18 08:31 Dose: 100 mg Oxycodone/Acetaminophen (Percocet 5/325 Mg Tab) 1 tab PO Q6 PRN PRN Reason: Pain, severe (8-10) Stop: 07/13/18 10:55 Last Admin: 07/11/18 06:13 Dose: 1 tab Pantoprazole Sodium (Protonix Ec Tab) 40 mg PO DAILY [facility] Last Admin: 07/11/18 08:31 Dose: 40 mg Promethazine HCl/Dextromethorphan (Phenergan Dm Syrup) 5 ml PO Q6 PRN PRN Reason: Cough Last Admin: 07/10/18 12:37 Dose: 5 ml Risperidone (Risperdal Tab) 1 mg PO HS [facility] Last Admin: 07/10/18 21:14 Dose: 1 mg Thiamine HCl (Vitamin B1 Tab) 100 mg PO DAILY [facility] Last Admin: 07/11/18 08:30 Dose: 100 mg Physical Exam - Constitutional Appears: No Acute Distress, Chronically Ill - Head Exam Head Exam: NORMAL INSPECTION - Eye Exam Eye Exam: PERRL - ENT Exam ENT Exam: Normal Exam - Neck Exam Neck exam: Positive for: Normal Inspection - Respiratory Exam Respiratory Exam: Decreased Breath Sounds (b/l), Rhonchi - Cardiovascular Exam Cardiovascular Exam: REGULAR RHYTHM - GI/Abdominal Exam GI & Abdominal Exam: Normal Bowel Sounds, Soft - Back Exam Back exam: vertebral tenderness - Neurological Exam Neurological exam: Alert, Oriented x3 - Psychiatric Exam Psychiatric exam: Normal Mood - Skin Skin Exam: Warm Results - Vital Signs Recent Vital Signs: Last Vital Signs Temp 97.9 F 07/11/18 07:58 Pulse 73 07/11/18 07:58 Resp 19 07/11/18 07:58 BP 145/90 07/11/18 07:58 Pulse Ox 94 L 07/11/18 07:58 reviewed J.P. - Labs Result Diagrams: 07/11/18 06:00 07/11/18 06:00 Labs: Laboratory Results - last 24 hr 07/11/18 07/11/18 06:00 06:00 WBC 6.7 RBC 4.53 Hgb 14.3 Hct 42.6 MCV 94.0 MCH 31.5 H MCHC 33.5 RDW 13.0 Plt Count 148 Sodium 138 Potassium 4.1 Chloride 99 Carbon Dioxide 27 Anion Gap 16 BUN 19 Creatinine 0.7 L Est GFR ( Amer) > 60 Est GFR (Non-Af Amer) > 60 Random Glucose 202 H Uric Acid 4.7 Calcium 9.7 Phosphorus 3.7 Magnesium 2.0 Total Bilirubin 0.9 AST 48 ALT 71 Alkaline Phosphatase 80 Total Protein 7.8 Albumin 4.3 Globulin 3.4 Albumin/Globulin Ratio 1.3 reviewed J.P. - EKG Data EKG comments: reviewed J.P. - Imaging and Cardiology Chest x-ray Status: Report reviewed by me (Ishan) Assessment & Plan (1) COPD exacerbation Status: Acute Priority: High - Assessment and Plan (Free Text) Plan: Continue with Zithromax, Duoneb, Solu-Medrol, Phenergan DM and rst of tx. - Date & Time Date: 07/11/18 Time: 10:20
--- NOTE | 2018-07-11 14:56 | RAD ---
Date of service: 07/11/2018 PROCEDURE: Right Knee Radiographs. HISTORY: R knee pain COMPARISON: None. TECHNIQUE: 2 views obtained. FINDINGS: BONES: No acute fracture or destructive bony lesion identified. JOINTS: No subluxation or dislocation. Joint space narrowing and articular cortical sclerosis as well as osteophyte formation are identified at all 3 joint compartments, seen worst at the medial femorotibial compartment, compatible with moderate to severe osteoarthritis. JOINT EFFUSION: Small suprapatellar bursa effusion noted. OTHER FINDINGS: Vascular calcifications are identified at the posterior knee soft tissues. IMPRESSION: Moderate to severe tricompartmental osteoarthritis. No acute fracture or dislocation identified.
[2018-07-11] MEDS ORDERED: methylPREDNISolone 60 MG in Sodium Chloride 0.9% 50 ML IVPB SCH (15:00)
[2018-07-11] MEDS ORDERED: methylPREDNISolone 125 MG in Sodium Chloride 0.9% 50 ML IVPB SCH (16:00)
[2018-07-11] MEDS: Promethazine DM 6.25 mg-15 mg/5 ml Syrup PO PRN (16:03)
[2018-07-12] MEDS: Albuterol-Ipratrop 3 mg / 0.5 (3 ml) UD INH SCH ×6 (04:40→23:40)
[2018-07-12] MEDS: Oxycodone/Acetaminophen 5/325 mg Tab PO PRN ×2 (05:58→14:11)
[2018-07-12 07:41] VITALS: RESP 20
[2018-07-12] MEDS: Azithromycin 500 MG in Sodium Chloride 0.9% 250 ML IVPB SCH (08:40)
[2018-07-12] MEDS: Enoxaparin 40 mg Syringe SC SCH (08:43)
[2018-07-12] MEDS: Metoprolol Succinate 100 mg XL Tab PO SCH (08:44)
[2018-07-12] MEDS: Pantoprazole 40 mg EC Tab PO SCH (08:47)
--- NOTE | 2018-07-12 15:48 | CP.PCM.PN ---
Subjective - Date & Time of Evaluation Date of Evaluation: 07/12/18 Time of Evaluation: 11:00 - Subjective Subjective: F/U COPD Exacerbation Cough with scanty yellowish phlegms, breathing better. Objective - Vital Signs/Intake and Output Vital Signs (last 24 hours): Temp Pulse Resp BP Pulse Ox 98.3 F 76 20 187/89 H 96 07/12/18 07:40 07/12/18 07:40 07/12/18 07:40 07/12/18 07:40 07/12/18 07:40 - Medications Medications: Current Medications Acetaminophen (Tylenol 325mg Tab) 650 mg PO Q4 PRN PRN Reason: Pain, Mild (1-3) Last Admin: 07/12/18 04:52 Dose: 650 mg Acetylcysteine (Mucomyst 10% 4ml) 2 ml IH RBID YEYO Albuterol/Ipratropium (Duoneb 3 Mg/0.5 Mg (3 Ml) Ud) 3 ml INH RQ4 PRN PRN Reason: Shortness of Breath Last Admin: 07/11/18 06:00 Dose: 3 ml Albuterol/Ipratropium (Duoneb 3 Mg/0.5 Mg (3 Ml) Ud) 3 ml INH RQ4 [facility] Last Admin: 07/12/18 11:08 Dose: 3 ml Amlodipine Besylate (Norvasc) 10 mg PO DAILY [facility] Last Admin: 07/11/18 08:30 Dose: 10 mg Aspirin (Ecotrin) 81 mg PO DAILY [facility] Last Admin: 07/12/18 08:47 Dose: 81 mg Budesonide (Pulmicort Respules) 0.25 mg INH RBID YEYO Clonidine HCl (Catapres) 0.1 mg PO BID [facility] Last Admin: 07/12/18 08:45 Dose: 0.1 mg Enoxaparin Sodium (Lovenox) 40 mg SC DAILY [facility]; Protocol Last Admin: 07/12/18 08:43 Dose: 40 mg Folic Acid (Folic Acid) 1 mg PO DAILY [facility] Last Admin: 07/12/18 08:44 Dose: 1 mg Gabapentin (Neurontin) 600 mg PO TID [facility] Last Admin: 07/12/18 14:12 Dose: 600 mg Azithromycin 500 mg/ Sodium (Chloride) 250 mls @ 250 mls/hr IVPB DAILY [facility]; Protocol Last Admin: 07/12/18 08:40 Dose: 250 mls/hr Lisinopril (Zestril) 10 mg PO DAILY [facility] Last Admin: 07/12/18 08:51 Dose: 10 mg Lorazepam (Ativan) 0.5 mg PO Q6 PRN PRN Reason: Agitation Last Admin: 07/12/18 08:51 Dose: 0.5 mg Methylprednisolone (Solu-Medrol) 60 mg IV Q8 [facility] Metoprolol Succinate (Toprol Xl) 100 mg PO DAILY [facility] Last Admin: 07/12/18 08:44 Dose: 100 mg Oxycodone/Acetaminophen (Percocet 5/325 Mg Tab) 1 tab PO Q6 PRN PRN Reason: Pain, severe (8-10) Stop: 07/13/18 10:55 Last Admin: 07/12/18 14:11 Dose: 1 tab Pantoprazole Sodium (Protonix Ec Tab) 40 mg PO DAILY [facility] Last Admin: 07/12/18 08:47 Dose: 40 mg Promethazine HCl/Dextromethorphan (Phenergan Dm Syrup) 5 ml PO Q6 PRN PRN Reason: Cough Last Admin: 07/11/18 16:03 Dose: 5 ml Risperidone (Risperdal Tab) 1 mg PO HS [facility] Last Admin: 07/11/18 21:22 Dose: 1 mg Thiamine HCl (Vitamin B1 Tab) 100 mg PO DAILY [facility] Last Admin: 07/12/18 08:45 Dose: 100 mg - Labs Labs: 07/11/18 06:00 07/11/18 06:00 - Constitutional Appears: No Acute Distress - Head Exam Head Exam: NORMAL INSPECTION - Eye Exam Eye Exam: PERRL - ENT Exam ENT Exam: Normal Exam - Neck Exam Neck Exam: Normal Inspection - Respiratory Exam Respiratory Exam: Decreased Breath Sounds (b/l), Rhonchi (scattered) - Cardiovascular Exam Cardiovascular Exam: REGULAR RHYTHM - GI/Abdominal Exam GI & Abdominal Exam: Soft, Normal Bowel Sounds - Extremities Exam Extremities Exam: Normal Inspection - Back Exam Back Exam: vertebral tenderness - Neurological Exam Neurological Exam: Alert, Oriented x3 - Psychiatric Exam Psychiatric exam: Normal Mood - Skin Skin Exam: Warm Assessment and Plan (1) COPD exacerbation Status: Acute - Assessment and Plan (Free Text) Plan: Taper Steroid, add Mucomyst, Mucinex and rst of Tx.
[2018-07-12] MEDS: Budesonide 0.25 mg/2 ml Inhal Susp UD INH SCH (19:26)
[2018-07-12] MEDS: Acetylcysteine 10% 4 ML IH SCH (19:26)
[2018-07-13] MEDS ORDERED: Enalaprilat 2.5 MG/2 ML IVP ONE ×3 (01:05→01:18)
[2018-07-13] MEDS ORDERED: WATER IV ONE (01:45)
[2018-07-13] MEDS ORDERED: DEXTROSE 5% IV ONE (01:45)
[2018-07-13] MEDS ORDERED: ENALAPRILAT IV ONE (01:45)
[2018-07-13] MEDS ORDERED: Naloxone 0.4 mg/ml Inj (Adult) IM STA ×2 (03:00→03:10)
[2018-07-13] MEDS ORDERED: Naloxone 0.4 mg/ml Inj (Adult) ONE (03:07)
--- NOTE | 2018-07-13 03:36 | PCM.RRT ---
OPTIMIZATION ENGINEER Nurse Assessment - Situation OPTIMIZATION ENGINEER Responder Arrival Time: 03:00 OPTIMIZATION ENGINEER Reason for Call: Hypertension OPTIMIZATION ENGINEER Called By: RN - Respiratory Oxygen Delivery Method: Room Air - Neurological Status (Select all that apply): absent: Alert, Responsive, Oriented, Verbal, Follows Commands - Eyes Additional Comments: Pinpoint pupils bilaterally - Respiratory Exam Respiratory Exam: Clear to Ausculation Bilateral, NORMAL BREATHING PATTERN - Cardiovascular Exam Cardiovascular Exam: RRR, +S1, +S2 - GI/Abdominal Exam GI & Abdominal Exam: Soft, Normal Bowel Sounds. absent: Tenderness - Neurological Exam Neurological Exam: Altered. absent: Alert, Awake, Oriented x3 - Extremities Exam Extremities Exam: Normal Inspection Plan - Assessment of Findings&Treatment Plan 52 y/o male w/ pmhx of COPD and heroin use admitted for COPD exacerbation 2:55 OPTIMIZATION ENGINEER called due to elevated BP, refractory to Clonidine 0.5mg PO and Hydra lazine 25mg PO x3 Vitals at start of OPTIMIZATION ENGINEER BP 181/ 110, HR 69, RR 16, O2 Sat 96% on room air Patient is not alert or oriented. Opens eyes to sternal rub. No verbal response EKG at bedside: Normal EKG 3:03 Hydralazine 20mg IV x 1 administered 3:05 Repeat vitals: BP 168/95, HR 70, O2 Sat 98% on rm air, RR 17 3:09AM Narcan 0.4mg IVx1 administered 3:10 AM Patient opened eyes and gradually became verbally responsive. 3:12 Repeat vitals: 158/101, HR 72, O2Sat 97, RR 13 3:13 Patient is alert and oriented x3, but doses off intermittently 3:17 Repeat vitals BP 164/90, HR 76 3:21 Another dose of Narcan 0.4mg IV given 3:27 End of OPTIMIZATION ENGINEER: patient alert/oriented/back to baseline. Vitals 167/93 HR 76 Losartan 50 mg PO x 1 ordered Patient stable. Will cont. to monitor patient's vitals.
[2018-07-13] MEDS: Albuterol-Ipratrop 3 mg / 0.5 (3 ml) UD INH SCH ×3 (04:19→11:30)
[2018-07-13 07:22] LABS: ALB/GLOB RATIO 1.3 (1.0-2.1); ALBUMIN 4.5 g/dL (3.5-5.0); ALT/SGPT 54 U/L (21-72); AST/SGOT 33 U/L (17-59); BLOOD UREA NITROGEN 18 mg/dl (9-20); CALCIUM 9.2 mg/dL (8.4-10.2); GFR NON-AFRICAN AMERICAN > 60
[2018-07-13 07:37] LABS: BASO % 0.1 % (0.0-2.0); HEMOGLOBIN 16.9 g/dL (12.0-18.0); LYMPH # 0.6 K/uL (1.0-4.3); MEAN CELL VOLUME 93.4 fl (80.0-94.0); MEAN CORPUSCULAR HEMOGLOBIN 31.4 pg (27.0-31.0); MEAN CORPUSCULAR HGB CONC 33.6 g/dL (33.0-37.0); MEAN PLATELET VOLUME 8.3 fl (7.2-11.7); MONO # 0.5 K/uL (0.0-0.8); MONO % 4.5 % (0.0-10.0); NEUT # 9.5 K/uL (1.8-7.0); NEUT % 89.4 % (50.0-75.0); NRBC % 0.1 % (0.0-0.0); PLATELET COUNT 181 K/uL (130-400); RBC 5.37 Mil/uL (4.40-5.90); RED CELL DISTRIBUTION WIDTH 13.4 % (11.5-14.5); WHITE BLOOD COUNT 10.6 K/uL (4.8-10.8)
[2018-07-13 07:46] VITALS: PULSE 74; TEMP 97.6; O2SAT 96
[2018-07-13] MEDS: Budesonide 0.25 mg/2 ml Inhal Susp UD INH SCH (07:46)
[2018-07-13] MEDS: Acetylcysteine 10% 4 ML IH SCH (07:47)
[2018-07-13] MEDS: Pantoprazole 40 mg EC Tab PO SCH (08:26)
[2018-07-13] MEDS: Azithromycin 500 MG in Sodium Chloride 0.9% 250 ML IVPB SCH (08:28)
[2018-07-13] MEDS: Metoprolol Succinate 100 mg XL Tab PO SCH (08:28)
[2018-07-13] MEDS: Oxycodone/Acetaminophen 5/325 mg Tab PO PRN (08:29)
[2018-07-13] MEDS: Enoxaparin 40 mg Syringe SC SCH (08:38)
[2018-07-13 10:12] LABS: LYMPHOCYTE 7 % (20-50); MONOCYTE 4 % (0-10); NEUTROPHIL 89 % (42-75); PLATELET ESTIMATE NORMAL (NORMAL); TOTAL CELLS COUNTED 100
--- NOTE | 2018-07-13 11:28 | CARD ---
APPROVED REPORT Date of service: 07/13/2018 EKG Measurement Heart [id number] <Conclusion> Normal sinus rhythm Normal ECG
[2018-07-13 13:57] LABS: BARBITURATES, UR NEGATIVE (NEGATIVE); BENZODIAZEPINES, UR POSITIVE (NEGATIVE); OPIATES, UR POSITIVE (NEGATIVE); PHENCYCLIDINE, UR NEGATIVE (NEGATIVE)
[2018-07-13 14:29] VITALS: BP 148/81
--- NOTE | 2018-07-13 16:01 | CP.PCM.PN ---
Objective - Vital Signs/Intake and Output Vital Signs (last 24 hours): Temp Pulse Resp BP Pulse Ox 97.6 F 74 20 148/81 96 07/13/18 07:46 07/13/18 10:43 07/13/18 07:46 07/13/18 14:28 07/13/18 07:46 - Labs Labs: 07/13/18 06:50 07/13/18 06:50 Assessment and Plan (1) COPD exacerbation Status: Acute
--- NOTE | 2018-07-17 18:22 | PQF ---
PROVIDER RESPONSE TEXT: Provider was unable to determine a response for this query. REVIEWER QUERY TEXT: Rheumatoid Arthritis Specificity A hx. of Rheumatoid arthritis is documented in the EMR. Please clarify the specific site and lateral ity. Please also specify any associated conditions if known Such as -- Bursitis -- Felty?s syndrome -- Juvenile (Please specify type) -- Myopathy -- Nodule -- Organ involvement (Please indicate organ involved and specific disorder) -- Polyneuropathy -- With Rheumatoid Factor -- Other, please specify The patient's Clinical Indicators include: -- Query created by: Yu Carroll on 07/12/2018 12:03 PM Electronically signed by: Grover Perera 07/17/2018 6:19 PM
--- NOTE | 2018-07-17 18:22 | PQF ---
PROVIDER RESPONSE TEXT: Provider was unable to determine a response for this query. REVIEWER QUERY TEXT: Clarification of Clinical Diagnostic Findings The following meds have been ordered: Risperdal, and Ativan: please clarify the current conditions b eing treated related to the meds listed. There is documentation of a hx. of opiate and etoh abuse. T here are separate codes for a history of opiate and etoh abuse versus currently treated conditions. OR: Other explanation of clinical findings The patient's Clinical Indicators include: --- Query created by: Yu Carroll on 07/12/2018 1:51 PM Electronically signed by: Grover Perera 07/17/2018 6:19 PM
== END 2018-07-13 15:13 | disposition home or self-care (01) | DRG 88 ==
LOC: H.ER 05:28 → H.ERHOLD 05:56 → H.MEDSURG1 08:46 → OBSVTOIN 07-11 10:33 → H.MEDSURG1 07-11 15:42
PROVIDERS: ADMIT Family Medicine; ATTEND Family Medicine
DX: J44.1 Chronic obstructive pulmonary disease with (acute) exacerbation (principal); G89.29 Other chronic pain; E78.00 Pure hypercholesterolemia, unspecified; M17.0 Bilateral primary osteoarthritis of knee; M06.9 Rheumatoid arthritis, unspecified; Z79.82 Long term (current) use of aspirin; F17.210 Nicotine dependence, cigarettes, uncomplicated; I10 Essential (primary) hypertension; Z86.73 Personal history of transient ischemic attack (TIA), and cerebral infarction without residual deficits; N40.0 Benign prostatic hyperplasia without lower urinary tract symptoms; F32.9 Major depressive disorder, single episode, unspecified; K29.70 Gastritis, unspecified, without bleeding

== ENCOUNTER 2018-07-19 11:44 | Emergency (ER) | payer MEDICAID ==
[2018-07-19 11:57] VITALS: BMI 28.7
[2018-07-19 13:17] LABS: BASO % 0.5 % (0.0-2.0); EOS # 0.4 K/uL (0.0-0.7); EOS % 5.7 % (0.0-4.0); HEMOGLOBIN 14.2 g/dL (12.0-18.0); LYMPH # 1.4 K/uL (1.0-4.3); MEAN CELL VOLUME 93.7 fl (80.0-94.0); MEAN CORPUSCULAR HGB CONC 34.2 g/dL (33.0-37.0); MEAN PLATELET VOLUME 7.6 fl (7.2-11.7); MONO # 0.8 K/uL (0.0-0.8); MONO % 12.9 % (0.0-10.0); NEUT # 3.6 K/uL (1.8-7.0); NEUT % 57.9 % (50.0-75.0); NRBC % 0.1 % (0.0-0.0); RBC 4.44 Mil/uL (4.40-5.90); RED CELL DISTRIBUTION WIDTH 12.9 % (11.5-14.5); WHITE BLOOD COUNT 6.2 K/uL (4.8-10.8)
[2018-07-19 13:41] LABS: ALB/GLOB RATIO 1.2 (1.0-2.1); ALT/SGPT 94 U/L (21-72); AST/SGOT 87 U/L (17-59); BLOOD UREA NITROGEN 26 mg/dl (9-20); CALCIUM 8.8 mg/dL (8.4-10.2); GFR NON-AFRICAN AMERICAN > 60; LIPASE 148 U/L (23-300)
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
--- NOTE | 2018-07-19 15:28 | RAD ---
Date of service: 07/19/2018 PROCEDURE: Cervical Spine Radiographs. HISTORY: Pain. COMPARISON: None available. TECHNIQUE: 4 views obtained. FINDINGS: BONES: There is straightening of the cervical spine with loss of normal cervical lordosis. Vertebral alignment is normal. Vertebral height is maintained. There is diffuse bone demineralization. There is no acute fracture or spondylolisthesis. The craniocervical junction is normal. The atlantoaxial joint is normal. DISC SPACES: There is multilevel degenerative disc disease with anterior spurring, reduced disc heights and multilevel facet arthropathy, worse at C3-4. There is moderate right and mild left neural foraminal narrowing at C3-4. The remaining neural foramina are patent. SOFT TISSUES: Normal. No prevertebral soft tissue swelling. OTHER FINDINGS: None. IMPRESSION: Multilevel degenerative disc disease, worse at C3-4 with moderate right and mild left neural foraminal narrowing. Straightening of the cervical spine may be positional or related to muscle spasm.
[2018-07-19] MEDS ORDERED: Iohexol 300 100 ML IJ ONE (15:32)
[2018-07-19] MEDS ORDERED: Sodium Chloride 0.9% 50 ML IV ONE (15:32)
--- NOTE | 2018-07-19 16:41 | CT ---
Date of service: 07/19/2018 PROCEDURE: CT Abdomen and Pelvis with contrast HISTORY: abd pain, elevated LFTs COMPARISON: CT abdomen and pelvis without IV contrast TECHNIQUE: Contrast dose: 95 cc Omnipaque 300 Radiation dose: Total exam DLP = 735.72 mGy-cm. This CT exam was performed using one or more of the following dose reduction techniques: Automated exposure control, adjustment of the mA and/or kV according to patient size, and/or use of iterative reconstruction technique. FINDINGS: LOWER THORAX: Unremarkable. LIVER: Hepatic steatosis renoted. There multiple circumscribed hypodense lesions in the liver right hepatic lobe predominantly but also seen in the caudate lobe with the largest approximately 1.7 cm in size. The largest ones are similar to that seen on the prior non IV contrast enhanced CT study from 01/18/2018. Some of the smaller lesions are not visualized on the prior study-however the current contrast enhanced study status improves their conspicuity. These findings are compatible with hepatic cysts the largest as mentioned above are stable in appearance since 2018. GALLBLADDER AND BILE DUCTS: Gallbladder is small and not distended. The common hepatic/bile duct near the lalitha hepatis is slightly increased in conspicuity this could be due to differences in technique contrast enhanced study. Consider right upper quadrant ultrasound to assess common bile duct caliber. Some mild dilatation the common bile duct assess for the slightly increased since the prior exam PANCREAS: Common bile duct in the pancreatic head is mildly prominent at approximately 8 to 9 mm no gross intrahepatic bile duct dilatation. No pancreatic main ductal dilatation noted. SPLEEN: Unremarkable. ADRENALS: The thickened nodular appearance to the confluent left adrenal limbs is as before. Hyperplasia and/or incidental adenoma here is compatible with this appearance. No change since 2018 appreciated. KIDNEYS AND URETERS: In the midpole to of the left kidney and anterior cortical small hyperdensity is seen it is too small to accurately characterize it is increased in conspicuity due to the current parenchymal enhancement state. This is approximately 5 mm. An ultrasound may be able to assess its characteristics. Consider targeted left breast ultrasound the prior abdominal ultrasound of 03/11/2018 did not report any cortical small mass here. . No hydronephrosis. There a S trace left perirenal fat inflammatory changes these are noted on the prior 2018 study no worrisome change in this regard noted. VASCULATURE: Unremarkable. No aortic aneurysm. There is presence of aortic atherosclerotic calcification and mural plaque on cross sectional studies. BOWEL: There is a left and right colonic diverticulosis. No complicating diverticulitis seen. No obstruction. No gross mural thickening. APPENDIX: Normal appendix. PERITONEUM: Unremarkable. No free fluid. No free air. LYMPH NODES: Unremarkable. No enlarged lymph nodes. BLADDER: Unremarkable. REPRODUCTIVE: A few punctate prostatic calcifications are seen.. BONES: No acute fracture. Thoraco lumbar spondylosis. Bilateral hip arthrosis. OTHER FINDINGS: None. IMPRESSION: Fatty liver with multiple lesions of which the vast majority of them appear similar to 2018. There appearances are compatible with hepatic cysts as detailed above. No dilated intrahepatic bile ducts noted. Small gallbladder with slight interval increased common bile duct caliber perceived. Consider abdominal ultrasound to assess the common bile duct also attention to the pancreatic head with ultrasound. Small sub cm anterior left renal cortical hypodensity possible renal cyst. Time of ultrasound-consider targeted ultrasound of the assessment here as well. Findings were not mention or noted or appreciated or demonstrated on the prior abdominal ultrasound study from March 2018
--- NOTE | 2018-07-19 18:03 | US ---
Date of service: 07/19/2018 HISTORY: elevated LFTs, enlargement on CT COMPARISON: 03/21/2018 TECHNIQUE: Sonographic evaluation of the right upper quadrant of the abdomen. FINDINGS: LIVER: Measures 17.6 cm in length. There is diffuse increased echogenicity of the liver parenchyma. There is redemonstration of a 1.5 x 1.5 x 1.7 cm complicated/cluster of cyst in the right hepatic lobe. No intrahepatic bile duct dilatation. GALLBLADDER: There are no gallstones, wall thickening or pericholecystic fluid. The sonographic English's sign is negative. COMMON BILE DUCT: Measures 6.3 mm. No stones. No dilatation. PANCREAS: Unremarkable as visualized. No mass. No ductal dilatation. RIGHT KIDNEY: Measures 11.8 cm in length. Normal echogenicity. No calculus, mass, or hydronephrosis. AORTA: No aneurysmal dilatation. IVC: Unremarkable. OTHER FINDINGS: None . IMPRESSION: Mild hepatomegaly and fatty liver. 1.5 x 1.5 x 1.7 cm complicated/cluster of cysts in the right hepatic lobe. No cholelithiasis or biliary dilatation.
[2018-07-19 18:18] VITALS: BP 120/70; PULSE 81; RESP 16; TEMP 97.9
[2018-07-19 22:15] VITALS: O2SAT 96
== END 2018-07-19 18:18 | disposition home or self-care (01) ==
LOC: H.ER 11:44
DX: M62.838 Other muscle spasm (principal); K76.0 Fatty (change of) liver, not elsewhere classified; R16.0 Hepatomegaly, not elsewhere classified; E78.00 Pure hypercholesterolemia, unspecified; G89.29 Other chronic pain
CPT/HCPCS: 72050; 74177; 76705; 80053; 83690; 85025; 96372; 99282; J1885; Q9967